=== PATIENT | female | born 1985 | race Two or more races ===

== ENCOUNTER 2020-04-24 10:55 | Outpatient (REF) | payer OTHER, SELFPAY ==
[2020-04-24 12:40] LABS: MANUAL DIFF FLAG NO
[2020-04-24 12:50] LABS: Basophils Percent Auto 0.3 % (0-2); Eosinophils Percent Auto 0.6 % (0-4); Hematocrit 37.3 % (37-47); Hemoglobin 11.9 g/dl (12.0-16.0); Imm Gran Abs Auto 0.01 X10*3/uL (0.00-0.03); Imm Gran Pct Auto 0.2 % (0.0-0.4); Lymphocytes Absolute Auto 2.1 X10*3/uL (1.2-4.9); Lymphocytes Percent Auto 31.7 % (20-40); Mean Corpuscular HGB Conc 31.9 g/dl (31.0-35.0); Mean Corpuscular Hemoglobin 25.5 pg (27.0-33.0); Mean Platelet Volume 10.4 fL (9.4-12.3); Monocytes Absolute Auto 0.5 X10*3/uL (0.1-1.2); Monocytes Percent Auto 7.1 % (2-11); Neutrophils Absolute Auto 3.9 X10*3/uL (2.0-8.3); Neutrophils Percent Auto 60.1 % (45-73); Platelet Count 302 X10*3/uL (160-400); Red Blood Count 4.66 X10*6/uL (4.20-5.50); Red Cell Distribution Width 14.2 % (11.0-16.0); White Blood Count 6.5 X10*3/uL (4.8-10.8)
[2020-04-24 13:03] LABS: Estimated Average Glucose 105 mg/dL; Hemoglobin A1c % 5.3 %
[2020-04-24 13:43] LABS: Alanine Aminotransferase 8 U/L (0-31); Albumin Level 3.6 g/dL (3.5-5.0); Alkaline Phosphatase 55 U/L (39-117); Anion Gap 13 (12-20); Aspartate Amino Transferase 12 U/L (5-31); Bilirubin Total 0.2 mg/dL (0.0-1.0); Blood Urea Nitrogen 10 mg/dL (9-16); Calcium 8.5 mg/dL (8.4-10.2); Carbon Dioxide 22 mmol/L (22-29); Chloride 106 mmol/L (96-108); Cholesterol 103 mg/dL; Estimated Glomerular Filt Rate > 60; Glucose Fasting 80 mg/dL (60-99); HDL Cholesterol 71 mg/dL; LDL Cholesterol Calculated 25 mg/dl; Potassium 4.3 mmol/l (3.3-5.1); Sodium 137 mmol/L (135-145); Total Protein 6.6 g/dL (6.5-8.0); Triglycerides 37 mg/dL
[2020-04-24 13:46] LABS: Thyroid Stimulating Hormone 1.19 uIU/mL (0.32-4.0)
== END 2020-04-24 10:56 | disposition home or self-care (01) ==
LOC: HO.LAB 10:55
PROVIDERS: PCP Physician Assistant; Visit Provider Physician Assistant
DX: E66.09 Other obesity due to excess calories (principal); Z00.00 Encounter for general adult medical examination without abnormal findings; Z13.1 Encounter for screening for diabetes mellitus; Z13.220 Encounter for screening for lipoid disorders
CPT/HCPCS: 36415; 80053; 80061; 83036; 84443; 85025

== ENCOUNTER 2020-08-03 02:01 | Emergency (ER) | payer OTHER, SELFPAY ==
--- NOTE | ~2020-08-03 | CT_ITS ---
EXAMINATION: CT ABDOMEN AND PELVIS WITH CONTRAST CLINICAL INFORMATION: Left lower quadrant pain. Flank pain. COMPARISON: None TECHNIQUE: Multidetector volumetric images were obtained from the superior aspect of the liver through the pubic symphysis following administration 85 mL of Omnipaque 350 intravenous contrast. Sagittal and coronal reformatted images were obtained on the technologist's workstation. Oral contrast: No This CT examination was performed using dose optimization techniques as appropriate, variously including the following: *Automated exposure control *Adjustment of mA and/or kV according to patient size (this includes techniques or standardized protocols for targeted exams where dose is matched to indication/reason for exam; i.e. extremities or head) *Use of iterative reconstruction technique DLP: 522 mGy-cm FINDINGS: LUNG BASES: The visualized lung bases are unremarkable. LIVER, GALLBLADDER, AND BILIARY TREE: The liver is normal in size, shape, and attenuation. No focal hepatic lesion or biliary ductal dilatation is present. The gallbladder is unremarkable with no evidence of radiopaque gallstones, gallbladder wall thickening, or obvious pericholecystic inflammatory changes. PANCREAS: Unremarkable. SPLEEN: Unremarkable. ADRENAL GLANDS: Unremarkable. KIDNEYS AND URETERS: The kidneys are normal in size, shape, and attenuation. There is mild left hydronephrosis. There is a 0.4 cm calculus at the ureteropelvic junction, 12 cm from the posterior axillary line. This measures 520 Hounsfield units. There are additional nonobstructing calculi seen. At the upper pole of the left kidney there is a 0.4 cm calculus which is 11 cm from the posterior axillary line. Questionable right-sided calculi versus early excretion of contrast. BLADDER: Unremarkable. GASTROINTESTINAL TRACT: The stomach is unremarkable. Normal caliber small bowel. There is no obstruction. No colonic wall thickening or acute inflammatory change. Normal appendix. No free air or free fluid. ABDOMINAL WALL: No significant hernia is appreciated. LYMPH NODES: Normal. VASCULAR: Unremarkable. PELVIC VISCERA: The uterus and adnexa are unremarkable. OSSEOUS STRUCTURES: No acute or suspicious osseous abnormality. Fixation hardware in the right femur noted. CT/CT abdomen pelvis w con IMPRESSION: Mild left hydronephrosis with a 0.4 cm calculus at the left ureteropelvic junction.
[2020-08-03 02:39] VITALS: BP 156/96; PULSE 88; RESP 20; TEMP 36.9; O2SAT 100; BMI 40.2
--- NOTE | 2020-08-03 03:03 | ED_ITS ---
HPI - Abdominal Pain General Chief Complaint: Abdominal Pain Stated Complaint: LOWER ABD PAIN/BACK PAIN Time Seen by Provider: 08/03/20 03:03 Source: patient Mode of arrival: ambulatory History of Present Illness HPI narrative: This is a 35-year-old female without significant past medical history who presents with left flank/left lower quadrant pain with radiation into the anterior abdomen this started approximately 11:30 p.m. and is ass ociated with nausea, vomiting, chills but no fevers and no urinary pain/burning/frequency. LMP is completed this past Tuesday. Related Data Previous Rx's Medication Instructions Recorded drospirenone 3 mg-ethinyl 1 tab PO DAILY #84 tab 03/31/20 estradiol 0.03 mg tablet metoclopramide HCl 5 mg tablet 5 mg PO BID #30 tab 03/31/20 omeprazole 20 mg capsule,delayed 20 mg PO DAILY #90 cap 03/31/20 release ketorolac 10 mg PO Q6H PRN 5 Days #20 tab 08/03/20 ondansetron HCl [Zofran] 4 mg PO Q8H PRN 3 Days #6 tab 08/03/20 tamsulosin [Flomax] 0.4 mg PO BEDTIME 4 Days #4 cap 08/03/20 Allergies Allergy/AdvReac Type Severity Reaction Status Date / Time No Known Allergies Allergy Unverified 08/03/20 02:46 Review of Systems Review of Systems Pertinent positives and negatives as stated in HPI 10 point review systems is otherwise negative. Physical Exam Vital Signs: Vital Signs: Last Vital Signs Temp 98.4 F 08/03/20 02:39 Pulse 83 08/03/20 05:42 Resp 16 08/03/20 05:42 BP 157/93 H 08/03/20 05:42 Pulse Ox 100 08/03/20 02:39 Body Mass Index 40.2 VITAL SIGNS: Reviewed. GENERAL: Well developed, well nourished, in no acute distress. HEAD: Normocephalic/atraumatic, OROPHARYNX: no oral lesions noted, posterior pharynx clear NECK: Supple, no adenopathy LUNGS: Normal breath sounds. No adventitious sounds or accessory muscle use. SpO2<100> CARDIOVASCULAR: Regular rate and rhythm without noted murmurs, no JVD or lower extremity edema. ABDOMEN: Soft, tenderness in left lower quadrant without rebound, non-distended with bowel sounds. NEUROLOGIC: Alert and oriented x 4. Strength and sensation to light touch were grossly intact x 4. Course Course Course Narrative: This is a 35-year-old female with history and clinical presentation suggestive of renal colic, pyelonephritis, less likely diverticulitis or ovarian etiology. IV fluids, antiemetics, pain medication, labs, UA, CT scan abdomen/pelvis Review of all investigations is consistent with renal colic and noted 4 mm stone with mild hydro on the left side. On re-evaluation patient has had good resolution of pain with a follow-up pain scale of 2/10 and tolerating oral intak e. Patient discharged home in stable condition MDM - Abdominal Pain Lab Data Result diagrams: 08/03/20 03:01 08/03/20 03:01 Labs: Lab Results 08/03/20 08/03/20 08/03/20 Range/Units 03:01 03:01 03:01 WBC 11.5 H (4.8-10.8) X10*3/uL RBC 5.21 (4.20-5.50) X10*6/uL Hgb 13.1 (12.0-16.0) g/dl Hct 41.3 (37-47) % MCV 79.3 L (80-98) fL MCH 25.1 L (27.0-33.0) pg MCHC 31.7 (31.0-35.0) g/dl RDW 13.7 (11.0-16.0) % Plt Count 345 (160-400) X10*3/uL MPV 10.0 (9.4-12.3) fL Immature Gran % (Auto) 0.3 (0.0-0.4) % Neut % (Auto) 81.2 H (45-73) % Lymph % (Auto) 13.4 L (20-40) % [place] % (Auto) 4.7 (2-11) % Eos % (Auto) 0.1 (0-4) % Baso % (Auto) 0.3 (0-2) % Lymph # (Auto) 1.5 (1.2-4.9) X10*3/uL [place] # (Auto) 0.5 (0.1-1.2) X10*3/uL Eos # (Auto) 0.0 (0.0-0.4) X10*3/uL Baso # (Auto) 0.0 (0.0-0.2) X10*3/uL Abs Immat Gran (auto) 0.04 H (0.00-0.03) X10*3/uL Absolute Neuts (auto) 9.3 H (2.0-8.3) X10*3/uL Absolute Nucleated RBC 0.000 (0.0-0.012) X10*3/uL Nucleated RBC % (auto) 0.0 (0.0-0.2) /100WBC Hold Blue Top SEE NOTE Sodium 139 (135-145) mmol/L Potassium 3.3 (3.3-5.1) mmol/L Chloride 108 (96-108) mmol/L Carbon Dioxide 18 L (22-29) mmol/L Anion Gap 16 (12-20) BUN 10 (9-16) mg/dL Creatinine 0.78 (0.5-1.4) mg/dL Estim Creat Clear Calc 55.6 Estimated GFR > 60 Random Glucose 105 (60-115) mg/dL Calcium 8.9 (8.4-10.2) mg/dL Total Bilirubin 0.4 (0.0-1.0) mg/dL AST 13 (5-31) U/L ALT 7 (0-31) U/L Alkaline Phosphatase 65 (39-117) U/L Total Protein 7.2 (6.5-8.0) g/dL Albumin 4.0 (3.5-5.0) g/dL Urine Color Urine Appearance Urine pH (5.0-8.0) Ur Specific [place] (1.005-1.025) Urine Protein (NEG-TRACE) MG/DL Urine Glucose (UA) (NEG) MG/DL Urine Ketones (NEG) MG/DL Urine Blood (NEG) Urine Nitrite (NEG) Ur Leukocyte Esterase (NEG) Urine RBC (0) /HPF Urine WBC (0-4) /HPF Ur Squamous Epith Cells /LPF Urine Bacteria /LPF Urine Mucus /LPF Urine Test (NEGATIVE) 08/03/20 08/03/20 Range/Units 03:01 03:01 WBC (4.8-10.8) X10*3/uL RBC (4.20-5.50) X10*6/uL Hgb (12.0-16.0) g/dl Hct (37-47) % MCV (80-98) fL MCH (27.0-33.0) pg MCHC (31.0-35.0) g/dl RDW (11.0-16.0) % Plt Count (160-400) X10*3/uL MPV (9.4-12.3) fL Immature Gran % (Auto) (0.0-0.4) % Neut % (Auto) (45-73) % Lymph % (Auto) (20-40) % [place] % (Auto) (2-11) % Eos % (Auto) (0-4) % Baso % (Auto) (0-2) % Lymph # (Auto) (1.2-4.9) X10*3/uL [place] # (Auto) (0.1-1.2) X10*3/uL Eos # (Auto) (0.0-0.4) X10*3/uL Baso # (Auto) (0.0-0.2) X10*3/uL Abs Immat Gran (auto) (0.00-0.03) X10*3/uL Absolute Neuts (auto) (2.0-8.3) X10*3/uL Absolute Nucleated RBC (0.0-0.012) X10*3/uL Nucleated RBC % (auto) (0.0-0.2) /100WBC Hold Blue Top Sodium (135-145) mmol/L Potassium (3.3-5.1) mmol/L Chloride (96-108) mmol/L Carbon Dioxide (22-29) mmol/L Anion Gap (12-20) BUN (9-16) mg/dL Creatinine (0.5-1.4) mg/dL Estim Creat Clear Calc Estimated GFR Random Glucose (60-115) mg/dL Calcium (8.4-10.2) mg/dL Total Bilirubin (0.0-1.0) mg/dL AST (5-31) U/L ALT (0-31) U/L Alkaline Phosphatase (39-117) U/L Total Protein (6.5-8.0) g/dL Albumin (3.5-5.0) g/dL Urine Color DARK YELLOW Urine Appearance HAZY Urine pH 6.0 (5.0-8.0) Ur Specific [place] >= 1.030 H (1.005-1.025) Urine Protein TRACE (NEG-TRACE) MG/DL Urine Glucose (UA) NEG (NEG) MG/DL Urine Ketones NEG (NEG) MG/DL Urine Blood 3+ H (NEG) Urine Nitrite NEG (NEG) Ur Leukocyte Esterase NEG (NEG) Urine RBC 50-75 H (0) /HPF Urine WBC 0-2 (0-4) /HPF Ur Squamous Epith Cells 1+ /LPF Urine Bacteria TRACE /LPF Urine Mucus 3+ /LPF Urine Test NEGATIVE (NEGATIVE) Discharge Plan Discharge Clinical Impression: Ureterolithiasis Patient Disposition: Home, Self-Care Instructions: Ureteral Stones (ED) Additional Instructions: 1. Tylenol 1000 mg, orally, every 6 hours as needed for pain control. Do not exceed 4000 mg within 24 hours. 2. Increase fluid hydration especially with water. 3. Please try to avoid carbonated/caffeinated beverages as this will increase likelihood of kidney stones. 4. Please follow-up with Urology by calling their office on Tuesday morning for further evaluation. Do not hesitate to return to the emergency department should you experience any acute worsening of your symptoms. Prescriptions: New ondansetron HCl [Zofran] 4 mg tablet 4 mg PO Q8H PRN (Reason: nausea and vomiting) 3 Days Qty: 6 RF: 0 tamsulosin [Flomax] 0.4 mg capsule 0.4 mg PO BEDTIME 4 Days Qty: 4 RF: 0 ketorolac 10 mg tablet 10 mg PO Q6H PRN (Reason: pain) 5 Days Qty: 20 RF: 0 No Action drospirenone-ethinyl estradiol 3-0.03 mg tablet 1 tab PO DAILY Qty: 84 RF: 1 omeprazole 20 mg capsule,delayed release(DR/EC) 20 mg PO DAILY Qty: 90 RF: 1 metoclopramide HCl 5 mg tablet 5 mg PO BID Qty: 30 RF: 2 Referrals: Zhao Sanabria MD [Physician] - 2 days (Evaluation and treatment as indicated for left 4 mm stone with mild left hydronephrosis) Lisandro James PA-C [Primary Care Provider] - 2 days (Re-evaluation and outpatient management renal colic.) [facility] Past Medical History Source: nursing notes reviewed Medical History No known health problems Social History Social History Advance Directives: No Advance Directives Information Provided: No
--- NOTE | 2020-08-03 03:05 | PC.NURSE ---
2 IV attempts unsuccessful due to poor venous access. Labs and urine obtained and sent. Pt resting in bed, call orozco within reach, awaiting primary MD eval. Continue to monitor.
[2020-08-03 03:09] LABS: MANUAL DIFF FLAG NO
[2020-08-03 03:12] LABS: Glucose Urine UA NEG (NEG); Leukocyte Esterase Urine NEG (NEG); Nitrite Urine NEG (NEG); Specific Gravity - Urine >= 1.030 (1.005-1.025); Urine Blood 3+ (NEG); Urine Ketones NEG (NEG); Urine Protein TRACE MG/DL (NEG-TRACE)
[2020-08-03 03:14] LABS: Appearance Urine HAZY; Color Urine DARK YELLOW
[2020-08-03 03:15] LABS: Basophils Percent Auto 0.3 % (0-2); Eosinophils Percent Auto 0.1 % (0-4); Hematocrit 41.3 % (37-47); Hemoglobin 13.1 g/dl (12.0-16.0); Imm Gran Abs Auto 0.04 X10*3/uL (0.00-0.03); Imm Gran Pct Auto 0.3 % (0.0-0.4); Lymphocytes Absolute Auto 1.5 X10*3/uL (1.2-4.9); Lymphocytes Percent Auto 13.4 % (20-40); Mean Corpuscular HGB Conc 31.7 g/dl (31.0-35.0); Mean Corpuscular Hemoglobin 25.1 pg (27.0-33.0); Mean Corpuscular Volume 79.3 fL (80-98); Monocytes Absolute Auto 0.5 X10*3/uL (0.1-1.2); Monocytes Percent Auto 4.7 % (2-11); Neutrophils Absolute Auto 9.3 X10*3/uL (2.0-8.3); Neutrophils Percent Auto 81.2 % (45-73); Platelet Count 345 X10*3/uL (160-400); Red Blood Count 5.21 X10*6/uL (4.20-5.50); Red Cell Distribution Width 13.7 % (11.0-16.0); White Blood Count 11.5 X10*3/uL (4.8-10.8)
[2020-08-03 03:26] LABS: WBC Urine 0-2 /HPF (0-4)
[2020-08-03 03:27] LABS: Bacteria Urine TRACE /LPF; Mucus Urine 3+ /LPF; RBC Urine 50-75 /HPF (0); Squamous Epithelial Cell Urine 1+ /LPF; UPreg QC Valid YES; Urine Pregnancy NEGATIVE (NEGATIVE)
[2020-08-03 03:32] LABS: Alanine Aminotransferase 7 U/L (0-31); Alkaline Phosphatase 65 U/L (39-117); Anion Gap 16 (12-20); Aspartate Amino Transferase 13 U/L (5-31); Bilirubin Total 0.4 mg/dL (0.0-1.0); Blood Urea Nitrogen 10 mg/dL (9-16); Calcium 8.9 mg/dL (8.4-10.2); Carbon Dioxide 18 mmol/L (22-29); Chloride 108 mmol/L (96-108); Creatinine Clr Calc Pharmacy 55.6; Estimated Glomerular Filt Rate > 60; Glucose Random 105 mg/dL (60-115); Potassium 3.3 mmol/L (3.3-5.1); Sodium 139 mmol/L (135-145); Total Protein 7.2 g/dL (6.5-8.0)
[2020-08-03] MEDS: ondansetron HCL 4 MG/2 ML VIAL IVPUSH (03:46)
[2020-08-03] MEDS: 0.9 % Sodium Chloride 1,000 ML 999 ML IV (03:46)
[2020-08-03] MEDS: Ketorolac Tromethamine 15 MG/ML VIAL IVPUSH (03:46)
--- NOTE | 2020-08-03 04:04 | PC.NURSE ---
IV established by DANYA Phillips after many attempts to establish access. Pt medicated per AUG, off to CT on hospital bed.
[2020-08-03] MEDS: iohexoL 350 MG/ML 100 ML INFUS..BTL 85 ML IV (04:12)
--- NOTE | 2020-08-03 04:12 | PC.NURSE ---
Pt returns from CT. Pt reports no relief of pain after Toradol. MD aware. Per MD, plan for IV Fentanyl.
[2020-08-03] MEDS: fentaNYL citrate/PF 100 MCG/2 ML VIAL 25 MCG IVPUSH (04:23)
[2020-08-03 04:28] VITALS: BP 144/86; PULSE 87; RESP 16
--- NOTE | 2020-08-03 04:29 | PC.NURSE ---
Pt medicated with Fentanyl per AUG for 01/13 [address] A[address] results. Continue to monitor.
[2020-08-03 05:42] VITALS: BP 157/93; PULSE 83; RESP 16
== END 2020-08-03 06:50 | disposition home or self-care (01) ==
PROVIDERS: Emergency Provider Student in an Organized Health Care Education/Training Program; PCP Physician Assistant
DX: N20.1 Calculus of ureter (principal); R10.9 Unspecified abdominal pain; M54.5 Low back pain; Z79.899 Other long term (current) drug therapy
CPT/HCPCS: 36415; 74177; 80053; 81001; 81025; 85025; 96361; 96365; 96375; 99284; J1885; J2405; J3010; Q9967

== ENCOUNTER → 2020-08-12 09:04 | Outpatient (BNVA) | payer OTHER, SELFPAY | PROVIDERS: PCP Physician Assistant; Visit Provider Urology | DX: Z13.89 Encounter for screening for other disorder (principal) | CPT/HCPCS: Q3014 ==

== ENCOUNTER 2020-08-16 20:36 | Emergency (ER) | payer OTHER, SELFPAY ==
[2020-08-16 20:37] VITALS: BP 170/98; PULSE 82; RESP 16; TEMP 37; O2SAT 100; BMI 40.6
[2020-08-16 21:26] LABS: Appearance Urine CLEAR; Color Urine YELLOW; Glucose Urine UA NEG (NEG); Leukocyte Esterase Urine NEG (NEG); Nitrite Urine NEG (NEG); Specific Gravity - Urine >= 1.030 (1.005-1.025); Urine Blood NEG (NEG); Urine Ketones >=80 MG/DL (NEG); Urine Protein NEG (NEG-TRACE)
[2020-08-16 21:30] LABS: UPreg QC Valid YES; Urine Pregnancy NEGATIVE (NEGATIVE)
--- NOTE | 2020-08-16 22:03 | ED.ABDPAIN ---
HPI - Abdominal Pain General Chief Complaint: Back Pain/Injury Stated Complaint: Flank pain Time Seen by Provider: 08/16/20 21:50 Source: patient Mode of arrival: ambulatory History of Present Illness HPI narrative: This is a 35-year-old female who is returning with recurrent onset of left flank pain and has known ureterolithiasis and was evaluated on 08/03. Patient states that pain became unbearable at approximately 9:30 a.m. this morning with associated nausea and multiple episodes of vomiting but denies any fevers or chills or urinary problems. She is scheduled for intervention on 08/20. Related Data Previous Rx's Medication Instructions Recorded drospirenone 3 mg-ethinyl 1 tab PO DAILY #84 tab 03/31/20 estradiol 0.03 mg tablet metoclopramide HCl 5 mg tablet 5 mg PO BID #30 tab 03/31/20 omeprazole 20 mg capsule,delayed 20 mg PO DAILY #90 cap 03/31/20 release ketorolac 10 mg PO Q6H PRN 5 Days #20 tab 08/03/20 ondansetron HCl [Zofran] 4 mg PO Q8H PRN 3 Days #6 tab 08/03/20 tamsulosin [Flomax] 0.4 mg PO BEDTIME 4 Days #4 cap 08/03/20 ondansetron HCl [Zofran] 4 mg PO Q6H PRN #6 tab 08/17/20 prednisone 20 mg PO DAILY 4 Days #4 tab 08/17/20 tamsulosin [Flomax] 0.4 mg PO BEDTIME 4 Days #4 cap 08/17/20 Allergies Allergy/AdvReac Type Severity Reaction Status Date / Time No Known Allergies Allergy Unverified 08/03/20 02:46 Review of Systems Review of Systems Pertinent positives and negatives as stated in HPI 10 point review of systems is otherwise negative. Physical Exam Vital Signs: Vital Signs: Last Vital Signs Temp 98.6 F 08/16/20 20:37 Pulse 75 08/17/20 00:27 Resp 16 08/17/20 00:27 BP 150/76 H 08/17/20 00:27 Pulse Ox 99 08/17/20 00:27 Body Mass Index 40.6 VITAL SIGNS: Reviewed. GENERAL: Well developed, well nourished, in no acute distress. NOSE: Nares patent bilateral OROPHARYNX: no oral lesions noted, posterior pharynx clear NECK: Supple, no adenopathy LUNGS: Normal breath sounds. No adventitious sounds or accessory muscle use. SpO2<100> CARDIOVASCULAR: Regular rate and rhythm without noted murmurs, no JVD or lower extremity edema. ABDOMEN: Soft, non-tender, non-distended with bowel sounds, no CVA tenderness NEUROLOGIC: Alert and oriented x 4. Course Course Course Narrative: This is a 35-year-old female with history and clinical presentation consistent with continued left renal colic secondary to known ureterolithiasis as well as corresponding dehydration and will assess for systemic infection. On re-evaluation and review of all investigations patient says pain level is down to 0/10 and and tolerating oral intake. Will ensure the patient has adequate outpatient pain and nausea and coverage and encouraged to continue follow-up with urology as scheduled. MDM - Abdominal Pain Lab Data Result diagrams: 08/16/20 22:25 08/17/20 00:05 Labs: Lab Results 08/16/20 08/16/20 08/16/20 Range/Units 20:51 20:51 22:25 WBC 9.8 (4.8-10.8) X10*3/uL RBC 4.89 (4.20-5.50) X10*6/uL Hgb 12.6 (12.0-16.0) g/dl Hct 38.3 (37-47) % MCV 78.3 L (80-98) fL MCH 25.8 L (27.0-33.0) pg MCHC 32.9 (31.0-35.0) g/dl RDW 14.4 (11.0-16.0) % Plt Count 338 (160-400) X10*3/uL MPV 9.7 (9.4-12.3) fL Immature Gran % (Auto) 0.3 (0.0-0.4) % Neut % (Auto) 81.3 H (45-73) % Lymph % (Auto) 12.2 L (20-40) % [place] % (Auto) 6.0 (2-11) % Eos % (Auto) 0.0 (0-4) % Baso % (Auto) 0.2 (0-2) % Lymph # (Auto) 1.2 (1.2-4.9) X10*3/uL [place] # (Auto) 0.6 (0.1-1.2) X10*3/uL Eos # (Auto) 0.0 (0.0-0.4) X10*3/uL Baso # (Auto) 0.0 (0.0-0.2) X10*3/uL Abs Immat Gran (auto) 0.03 (0.00-0.03) X10*3/uL Absolute Neuts (auto) 8.0 (2.0-8.3) X10*3/uL Absolute Nucleated RBC 0.000 (0.0-0.012) X10*3/uL Nucleated RBC % (auto) 0.0 (0.0-0.2) /100WBC Sodium (135-145) mmol/L Potassium (3.3-5.1) mmol/L Chloride (96-108) mmol/L Carbon Dioxide (22-29) mmol/L Anion Gap (12-20) BUN (9-16) mg/dL Creatinine (0.5-1.4) mg/dL Estim Creat Clear Calc Estimated GFR Random Glucose (60-115) mg/dL Calcium (8.4-10.2) mg/dL Total Bilirubin (0.0-1.0) mg/dL AST (5-31) U/L ALT (0-31) U/L Alkaline Phosphatase (39-117) U/L Total Protein (6.5-8.0) g/dL Albumin (3.5-5.0) g/dL Urine Color YELLOW Urine Appearance CLEAR Urine pH 6.0 (5.0-8.0) Ur Specific [place] >= 1.030 H (1.005-1.025) Urine Protein NEG (NEG-TRACE) MG/DL Urine Glucose (UA) NEG (NEG) MG/DL Urine Ketones >=80 (NEG) MG/DL Urine Blood NEG (NEG) Urine Nitrite NEG (NEG) Ur Leukocyte Esterase NEG (NEG) Urine Test NEGATIVE (NEGATIVE) 08/17/20 Range/Units 00:05 WBC (4.8-10.8) X10*3/uL RBC (4.20-5.50) X10*6/uL Hgb (12.0-16.0) g/dl Hct (37-47) % MCV (80-98) fL MCH (27.0-33.0) pg MCHC (31.0-35.0) g/dl RDW (11.0-16.0) % Plt Count (160-400) X10*3/uL MPV (9.4-12.3) fL Immature Gran % (Auto) (0.0-0.4) % Neut % (Auto) (45-73) % Lymph % (Auto) (20-40) % [place] % (Auto) (2-11) % Eos % (Auto) (0-4) % Baso % (Auto) (0-2) % Lymph # (Auto) (1.2-4.9) X10*3/uL [place] # (Auto) (0.1-1.2) X10*3/uL Eos # (Auto) (0.0-0.4) X10*3/uL Baso # (Auto) (0.0-0.2) X10*3/uL Abs Immat Gran (auto) (0.00-0.03) X10*3/uL Absolute Neuts (auto) (2.0-8.3) X10*3/uL Absolute Nucleated RBC (0.0-0.012) X10*3/uL Nucleated RBC % (auto) (0.0-0.2) /100WBC Sodium 140 (135-145) mmol/L Potassium 4.0 D (3.3-5.1) mmol/L Chloride 108 (96-108) mmol/L Carbon Dioxide 15 L (22-29) mmol/L Anion Gap 21 H (12-20) BUN 10 (9-16) mg/dL Creatinine 0.89 (0.5-1.4) mg/dL Estim Creat Clear Calc 49.0 Estimated GFR > 60 Random Glucose 78 (60-115) mg/dL Calcium 8.7 (8.4-10.2) mg/dL Total Bilirubin 0.2 (0.0-1.0) mg/dL AST 16 (5-31) U/L ALT 8 (0-31) U/L Alkaline Phosphatase 69 (39-117) U/L Total Protein 7.7 (6.5-8.0) g/dL Albumin 4.2 (3.5-5.0) g/dL Urine Color Urine Appearance Urine pH (5.0-8.0) Ur Specific [place] (1.005-1.025) Urine Protein (NEG-TRACE) MG/DL Urine Glucose (UA) (NEG) MG/DL Urine Ketones (NEG) MG/DL Urine Blood (NEG) Urine Nitrite (NEG) Ur Leukocyte Esterase (NEG) Urine Test (NEGATIVE) Discharge Plan Discharge Clinical Impression: Renal colic Patient Disposition: Home, Self-Care Instructions: Renal Colic (ED) Additional Instructions: 1. Tylenol 1000 mg, orally, every 6 hours as needed for pain control. Do not exceed 4000 mg within 24 hours. 2. Ibuprofen 400 mg, orally with milk or food, every 6 hours as needed for pain control. Take this medication with the Tylenol for improved pain control. 3. Continue to follow up with Urology for treatment as scheduled. Do not hesitate to return the emergency department should you develop any acute worsening of your symptoms. Prescriptions: New tamsulosin [Flomax] 0.4 mg capsule 0.4 mg PO BEDTIME 4 Days Qty: 4 RF: 0 prednisone 20 mg tablet 20 mg PO DAILY 4 Days Qty: 4 RF: 0 ondansetron HCl [Zofran] 4 mg tablet 4 mg PO Q6H PRN (Reason: nausea and vomiting) Qty: 6 RF: 0 No Action drospirenone-ethinyl estradiol 3-0.03 mg tablet 1 tab PO DAILY Qty: 84 RF: 1 omeprazole 20 mg capsule,delayed release(DR/EC) 20 mg PO DAILY Qty: 90 RF: 1 metoclopramide HCl 5 mg tablet 5 mg PO BID Qty: 30 RF: 2 ondansetron HCl [Zofran] 4 mg tablet 4 mg PO Q8H PRN (Reason: nausea and vomiting) 3 Days Qty: 6 RF: 0 tamsulosin [Flomax] 0.4 mg capsule 0.4 mg PO BEDTIME 4 Days Qty: 4 RF: 0 ketorolac 10 mg tablet 10 mg PO Q6H PRN (Reason: pain) 5 Days Qty: 20 RF: 0 Referrals: Zhao Sanabria MD [Physician] - 2 days Lisandro James PA-C [Primary Care Provider] - 2 days (Re-evaluation) Print Language: Monegasque [facility] Past Medical History Source: nursing notes reviewed Medical History Kidney calculi Surgical History History of surgery Social History Social History Alcohol intake: never Smoking Status: Never smoker Use of substances other than those prescribed or required for medical reasons: No Advance Directives: No
[2020-08-16 22:32] LABS: MANUAL DIFF FLAG NO
[2020-08-16 22:33] LABS: Basophils Percent Auto 0.2 % (0-2); Hematocrit 38.3 % (37-47); Hemoglobin 12.6 g/dl (12.0-16.0); Imm Gran Abs Auto 0.03 X10*3/uL (0.00-0.03); Imm Gran Pct Auto 0.3 % (0.0-0.4); Lymphocytes Absolute Auto 1.2 X10*3/uL (1.2-4.9); Lymphocytes Percent Auto 12.2 % (20-40); Mean Corpuscular HGB Conc 32.9 g/dl (31.0-35.0); Mean Corpuscular Hemoglobin 25.8 pg (27.0-33.0); Mean Corpuscular Volume 78.3 fL (80-98); Mean Platelet Volume 9.7 fL (9.4-12.3); Monocytes Absolute Auto 0.6 X10*3/uL (0.1-1.2); Neutrophils Percent Auto 81.3 % (45-73); Platelet Count 338 X10*3/uL (160-400); Red Blood Count 4.89 X10*6/uL (4.20-5.50); Red Cell Distribution Width 14.4 % (11.0-16.0); White Blood Count 9.8 X10*3/uL (4.8-10.8)
[2020-08-16] MEDS: Ketorolac Tromethamine 15 MG/ML VIAL IVPUSH (22:42)
[2020-08-16] MEDS: 0.9 % Sodium Chloride 1,000 ML 999 ML IV (22:42)
--- NOTE | 2020-08-16 22:46 | PC.NURSE ---
iv inserted, labs drawn, pt medicated per order
--- NOTE | 2020-08-16 23:45 | PC.NURSE ---
ATTEMPTED TO OBTAIN RECOLLECT WITH NO SUCCESS. WILL CALL PHLEBOTOMY TO RECOLLECT LAB AT THIS TIME.
[2020-08-17 00:27] VITALS: BP 150/76; PULSE 75; RESP 16; O2SAT 99
--- NOTE | 2020-08-17 00:28 | PC.NURSE ---
PAIN RESOLVED AT THIS TIME. PO CHALLENGE STARTED.
[2020-08-17 00:32] LABS: Alkaline Phosphatase 69 U/L (39-117); Aspartate Amino Transferase 16 U/L (5-31); Blood Urea Nitrogen 10 mg/dL (9-16); Chloride 108 mmol/L (96-108); Total Protein 7.7 g/dL (6.5-8.0)
[2020-08-17 03:12] LABS: Alanine Aminotransferase 8 U/L (0-31); Albumin Level 4.2 g/dL (3.5-5.0); Anion Gap 21 (12-20); Bilirubin Total 0.2 mg/dL (0.0-1.0); Calcium 8.7 mg/dL (8.4-10.2); Carbon Dioxide 15 mmol/L (22-29); Estimated Glomerular Filt Rate > 60; Glucose Random 78 mg/dL (60-115); Sodium 140 mmol/L (135-145)
== END 2020-08-17 03:47 | disposition home or self-care (01) ==
PROVIDERS: Emergency Provider Student in an Organized Health Care Education/Training Program; PCP Physician Assistant
DX: N20.0 Calculus of kidney (principal); R11.2 Nausea with vomiting, unspecified
CPT/HCPCS: 36415; 80053; 81003; 81025; 85025; 96361; 96374; 99284; J1885

== ENCOUNTER 2020-08-20 06:12 | Day surgery (SDC) | payer OTHER, SELFPAY ==
--- NOTE | 2020-08-19 09:31 | HO.ANESPROP2 ---
Documented by User: Elda Toussaint 08/19/20 09:33 HPI - Anesthesia Eval Consult details Narrative: 35yo F for L ESWL No prev ESWL on record PMFSH Active Problems Active Problems: All Active Problems (Updated 08/18/20 @ 00:00 by Parminder Power) Nephrolithiasis (Acute) Past Medical History Medical History Kidney calculi Surgical History Surgical History History of surgery Social History Social History Alcohol intake: never Smoking Status: Never smoker Use of substances other than those prescribed or required for medical reasons: No Advance Directives: No Advance Directives Information Provided: Yes Meds Allergies Allergy/AdvReac Type Severity Reaction Status Date / Time No Known Allergies Allergy Unverified 08/03/20 02:46 Exam Exam Date and Time: August 19, 2020930 Pertinent Lab Results Pertinent Lab Results: Laboratory Tests 08/16/20 08/17/20 22:25 00:05 WBC 9.8 Hgb 12.6 Hct 38.3 Plt Count 338 Sodium 140 Potassium 4.0 D Chloride 108 Carbon Dioxide 15 L BUN 10 Creatinine 0.89 Assessment and Plan Assessment Anesthesia Assessment: Chart Reviewed Documented by User: Breanne Francis 08/20/20 08:32 PMFSH Past Medical History Medical History Kidney calculi Surgical History Surgical History History of surgery Social History Social History Alcohol intake: never Smoking Status: Never smoker Use of substances other than those prescribed or required for medical reasons: No Advance Directives: No Advance Directives Information Provided: Yes Meds Allergies Allergy/AdvReac Type Severity Reaction Status Date / Time No Known Allergies Allergy Unverified 08/03/20 02:46 Exam Airway Mallampati Class: III TM Dist: >3cm Neck ROM: Full Heart: RRR Lungs: CTA
[2020-08-20] VITALS (16 sets, daily range): BP systolic 144–176; BP diastolic 81–107; PULSE 78–107; RESP 16–18; TEMP 36.8–37.1; O2SAT 95–100; BMI 40.6
--- NOTE | ~2020-08-20 | XR_ITS ---
EXAMINATION: XR ABDOMEN KUB CLINICAL INDICATION: Nephrolithiasis. COMPARISON: CT abdomen 08/03/2020 TECHNIQUE: AP view of the abdomen. FINDINGS: There is moderate stool in the colon overlying both kidneys. Small renal calculi seen in both kidneys on previous CT exam are not visualized on the present exam. There is no organomegaly. No bony abnormality. There is an intramedullary femoral caroline and subtrochanteric nail. Femoral fracture not in the [id number]. XR/XR KUB IMPRESSION: Moderate constipation. Radiopaque calculi seen in both kidneys on the previous CT are not visualized on this exam due to overlying stool in the colon.
[2020-08-20 06:49] LABS: UPreg QC Valid YES; Urine Pregnancy NEGATIVE (NEGATIVE)
[2020-08-20] MEDS: Lactated Ringers 1,000 ML 100 ML IVCONT (07:06)
--- NOTE | 2020-08-20 08:19 | MHC.SHP ---
Pre-Procedural Eval Section A The patient is an INPATIENT: No Changes since office visit: No Cold of Flu in the past 2 weeks, No New Medical Problems, No Changes in Medication and No Patient answered all questions The History & Physical has been completed within 30 days and I have reviewed it.: Yes Section B Chief Complaint: Calculus Of Kidney Allergies: Allergies Allergy/AdvReac Type Severity Reaction Status Date / Time No Known Allergies Allergy Unverified 08/03/20 02:46 Plan Diagnosis/Plan: Unchanged (left ESWL) I have reviewed the history and physical and performed a pertinent physical examination on my patient. No changes have occurred unless specified.
[2020-08-20] MEDS: ondansetron HCL 4 MG/2 ML VIAL IVPUSH ×2 (08:27→10:50)
[2020-08-20] MEDS: fentaNYL citrate/PF 100 MCG/2 ML VIAL 25 MCG IVPUSH ×5 (08:27→09:46)
--- NOTE | 2020-08-20 08:29 | PC.NURSE ---
medicated for 8/10 left flank pain.
--- NOTE | 2020-08-20 09:19 | W.PM.OPN ---
Operative Note Operative Note Date of Service: 08/20/20 Narrative: PreOperative Diagnosis: Left Renal stones Post Operative Diagnosis: Left proximal ureteric, renal stones Procedure: ESWL Surgeon: Dr Zhao Sanabria Anesthesia: mac/sedation Indications for procedure: They understand ESWL may be a staged procedure and subsequent intervention may be required based on imaging after ESWL. They also understand there is a risk of bleeding, infection, damage to adjacent organs. CT scan showed it at left UPJ 2 weeks ago. Procedure: After informed consent was verified the patient was brought to the operating room and placed in a supine position. Anesthesia was performed per protocol. Safety pause time-out was performed. Imaging was in the room and laterality confirmed. ESWL was performed. Initial imaging showed stone in upper portion of ureter. With start of procedure stone bounced back up into kidney under ultrasound. The 1st 500 shocks were performed at 60 hertz. These were performed with increasing power. Once maximum power was reached the rate was increased to 180 hertz. A total of 2500 shocks were given. Fluoroscopy showed stone disintegration. They tolerated procedure well and was transferred to the recovery area upon completion.
--- NOTE | 2020-08-20 09:20 | PM.OP ---
Brief Operative Note Date of Service: 08/20/20 Pre-op diagnosis: Left upper ureteric stone Post-op diagnosis: same Procedure: Left ESWL Surgeon: Zhao Sanabria MD Anesthesia: GLMA Estimated blood loss (mL): 0 Pathology: none sent Condition: stable Disposition: same day
[2020-08-20] MEDS: Phenazopyridine HCL 100 MG TABLET PO (09:29)
[2020-08-20] MEDS: Acetaminophen 325 MG TABLET 650 MG PO (09:29)
[2020-08-20] MEDS: oxyCODONE HCl Immed Release 5 MG TABLET PO ×2 (09:30→09:44)
--- NOTE | 2020-08-20 09:49 | HO.POSTANES ---
Post Anesthesia Evaluation Post Anesthesia Evaluation Vital Signs: Vital Signs Temp Pulse Resp BP Pulse Ox 08/20/20 09:28 95 18 173/101 H 98 08/20/20 09:23 98.3 F 97 16 160/94 H 95 08/20/20 08:11 89 18 173/105 H 100 08/20/20 07:01 98.7 F 98 16 161/105 H 98 Anesthesia: General Mental Status: Awake Pain Control: Satisfactory Nausea/Vomiting: None Hydration: Adequate Anesthesia-Related Issues: No Anes. Related Issues
[2020-08-20] MEDS: Ketorolac Tromethamine 30 MG/ML VIAL IVPUSH (11:31)
== END 2020-08-20 13:59 | disposition home or self-care (01) ==
PROVIDERS: Nurse Practitioner; PCP Physician Assistant; Visit Provider Urology
PROC: (CPT 50590; principal; 2020-08-20 08:00)
DX: N20.0 Calculus of kidney (principal); Z87.442 Personal history of urinary calculi
CPT/HCPCS: 50590; 74018; 81025; J1885; J2250; J2405; J3010

== ENCOUNTER 2020-08-28 09:57 | Outpatient (REF) | payer OTHER, SELFPAY ==
--- NOTE | ~2020-08-28 | US_ITS ---
EXAMINATION: US RETROPERITONEAL LIMITED (RENAL ONLY) CLINICAL INFORMATION: Calculus of kidney. COMPARISON: X-ray KUB 08/20/2020. CT abdomen and pelvis 08/03/2020. TECHNIQUE: Real-time imaging of the kidneys. FINDINGS: RIGHT KIDNEY: 9.5 x 3.7 x 4.2 cm (SAG x AP x TRV). The kidney is normal in size, contour, and echogenicity. Renal cortical thickness is normal. No calculi or focal parenchymal lesions. No hydronephrosis. LEFT KIDNEY: 9.5 x 4.0 x 4.9 cm (SAG x AP x TRV). The kidney is normal in size, contour, and echogenicity. Renal cortical thickness is normal. No focal parenchymal lesions or hydronephrosis. There are several echogenic stones. A upper pole stone measuring 0.6 cm. There are clusters of small stones in the lower pole measuring 0.4, 0.8 x 0.3 cm. No caliectasis seen. US/US renal BI IMPRESSION: Multiple small echogenic stones in the upper and lower pole left kidney.There is no caliectasis. The right kidney is unremarkable.
== END 2020-08-28 09:58 | disposition home or self-care (01) ==
LOC: HO.US 09:57
PROVIDERS: Visit Provider Urology
DX: N20.0 Calculus of kidney (principal)
CPT/HCPCS: 76775

== ENCOUNTER → 2020-09-17 13:49 | Outpatient (BNVA) | payer OTHER, SELFPAY | PROVIDERS: Visit Provider Urology | DX: N20.0 Calculus of kidney (principal) | CPT/HCPCS: Q3014 ==

== ENCOUNTER 2021-01-06 12:12 | Outpatient (REF) | payer OTHER, SELFPAY ==
--- NOTE | ~2021-01-06 | US_ITS ---
EXAMINATION: US RETROPERITONEAL LIMITED (RENAL ONLY) CLINICAL INFORMATION: Calculus of kidney. COMPARISON: Renal ultrasound 08/28/2020. X-ray abdomen KUB 08/20/2020. CT abdomen and pelvis 08/03/2020. TECHNIQUE: Real-time imaging of the kidneys. FINDINGS: RIGHT KIDNEY: 9.6 x 4.1 x 4.9 cm (SAG x AP x TRV). The kidney is normal in size, contour, and echogenicity. Renal cortical thickness is normal. No calculi or focal parenchymal lesions. No hydronephrosis. LEFT KIDNEY: 9.6 x 3.9 x 4.3 cm (SAG x AP x TRV). The kidney is normal in size, contour, and echogenicity. Renal cortical thickness is normal. There is a small 2 mm echogenic density in the mid to upper pole with twinkle artifact suggestive of a small stone. No focal parenchymal lesions or hydronephrosis. US/US renal BI IMPRESSION: Small left renal stone.
[2021-01-06 13:18] LABS: Estimated Average Glucose 103 mg/dL; Hemoglobin A1c % 5.2 %
[2021-01-06 13:20] LABS: Alanine Aminotransferase 9 U/L (0-31); Albumin Level 3.7 g/dL (3.5-5.0); Alkaline Phosphatase 62 U/L (39-117); Anion Gap 11 (12-20); Aspartate Amino Transferase 16 U/L (5-31); Bilirubin Total 0.3 mg/dL (0.0-1.0); Blood Urea Nitrogen 12 mg/dL (9-16); Calcium 9.1 mg/dL (8.4-10.2); Carbon Dioxide 24 mmol/L (22-29); Chloride 107 mmol/L (96-108); Estimated Glomerular Filt Rate > 60; Glucose Fasting 84 mg/dL (60-99); Potassium 4.2 mmol/L (3.3-5.1); Sodium 138 mmol/L (135-145)
[2021-01-06 13:42] LABS: TSH reflex Free T4 1.35 uIU/mL (0.32-4.0)
== END 2021-01-06 12:13 | disposition home or self-care (01) ==
LOC: HO.US 12:12
PROVIDERS: Absent Provider Physician Assistant; PCP Physician Assistant; Visit Provider Urology
DX: Z13.29 Encounter for screening for other suspected endocrine disorder (principal); N20.0 Calculus of kidney
CPT/HCPCS: 36415; 76775; 80053; 83036; 84443

== ENCOUNTER → 2021-03-17 14:53 | Outpatient (BNVA) | payer OTHER, SELFPAY | PROVIDERS: PCP Physician Assistant | DX: N20.0 Calculus of kidney (principal) | CPT/HCPCS: Q3014 ==

== ENCOUNTER 2021-08-11 16:33 | Outpatient (REF) | payer OTHER, SELFPAY ==
--- NOTE | ~2021-08-11 | US_ITS ---
EXAMINATION: US RETROPERITONEAL LIMITED (RENAL ONLY) CLINICAL INFORMATION: This is a 36-year-old female with calculus of the kidney.. COMPARISON: Comparison is made to a previous ultrasound dated 01/06/2021. TECHNIQUE: Bilateral renal ultrasound was performed. FINDINGS: RIGHT KIDNEY: 9.2 x 4.1 x 4.6 cm (SAG x AP x TRV). Previously, the kidney measured 9.6 x 4.1 x 4.9 cm. The kidney is normal in size, contour, and echogenicity. Renal cortical thickness is normal. No calculi or focal parenchymal lesions. No hydronephrosis. LEFT KIDNEY: 9.8 x 4.6 x 4.8 cm (SAG x AP x TRV). Previously, the kidney measured 9.6 x 3.9 x 4.3 cm. The kidney is normal in size, contour, and echogenicity. Renal cortical thickness is normal. No focal parenchymal lesions. No hydronephrosis. There is a 0.4 cm echogenic area with shadowing in the upper pole consistent with a nonobstructing renal calculus. The patient previously demonstrated a 0.2 cm upper pole renal calculus in this area. US/US renal BI IMPRESSION: 1. There is a 0.4 cm nonobstructing upper pole left renal calculus. 2. Normal right kidney..
== END 2021-08-11 16:34 | disposition home or self-care (01) ==
LOC: HO.US 16:33
PROVIDERS: Visit Provider Urology
DX: N20.0 Calculus of kidney (principal)
CPT/HCPCS: 76775

== ENCOUNTER → 2021-09-11 12:46 | Outpatient (BNVA) | payer OTHER, SELFPAY | PROVIDERS: PCP Physician Assistant | DX: N20.0 Calculus of kidney (principal) | CPT/HCPCS: 99212 ==

== ENCOUNTER 2022-02-10 16:17 | Outpatient (REF) | payer OTHER, SELFPAY ==
--- NOTE | ~2022-02-10 | US_ITS ---
EXAMINATION: US RETROPERITONEAL LIMITED (RENAL ONLY) CLINICAL INFORMATION: Calculus of kidney. COMPARISON: Ultrasound retroperitoneal limited (renal only) 08/11/2021 and 01/06/2021. X-Ray abdomen KUB 08/20/2020. CT abdomen and pelvis with contrast 08/03/2020. TECHNIQUE: Real-time imaging of the kidneys. FINDINGS: RIGHT KIDNEY: 9.5 x 3.9 x 4.9 cm (SAG x AP x TRV). The kidney is normal in size, contour, and echogenicity. Renal cortical thickness is normal. No calculi or focal parenchymal lesions. No hydronephrosis. LEFT KIDNEY: 8.8 x 4.0 x 4.6 cm (SAG x AP x TRV). The kidney is normal in size, contour, and echogenicity. Renal cortical thickness is normal. No focal parenchymal lesions or hydronephrosis. There is an upper/midpole echogenic stone measuring 0.4 x 0.3 x 0.4 cm. Previously it measured 0.4 cm. No caliectasis seen. US/US renal BI IMPRESSION: Small nonobstructive echogenic stone upper/midpole left kidney, stable. No hydronephrosis. Normal right kidney. Stable.
== END 2022-02-10 16:18 | disposition home or self-care (01) ==
LOC: HO.US 16:17
PROVIDERS: Visit Provider Urology
DX: N20.0 Calculus of kidney (principal)
CPT/HCPCS: 76775

== ENCOUNTER → 2022-03-25 13:06 | Outpatient (BNVA) | payer OTHER, SELFPAY | PROVIDERS: PCP Physician Assistant; Visit Provider Urology | DX: N20.0 Calculus of kidney (principal) | CPT/HCPCS: 99212 ==

== ENCOUNTER 2022-05-10 12:42 | Outpatient (REF) | payer OTHER, SELFPAY ==
[2022-05-10 14:10] LABS: Hematocrit 41.4 % (37.0-47.0); Hemoglobin 13.5 g/dl (12.0-16.0); Mean Corpuscular HGB Conc 32.6 g/dl (31.0-35.0); Mean Corpuscular Hemoglobin 24.7 pg (27.0-33.0); Mean Corpuscular Volume 75.8 fL (80.0-98.0); Mean Platelet Volume 10.3 fL (9.4-12.3); Platelet Count 388 X10*3/uL (160-400); Red Blood Count 5.46 X10*6/uL (4.20-5.50); Red Cell Distribution Width 14.4 % (11.0-16.0); White Blood Count 7.2 X10*3/uL (4.8-10.8)
[2022-05-10 14:39] LABS: Microalbum/Creatinine Ratio Ur 20.8 ug/mg cr
[2022-05-10 14:57] LABS: Alanine Aminotransferase 13 U/L (0-31); Alkaline Phosphatase 76 U/L (39-117); Anion Gap 14 (12-20); Aspartate Amino Transferase 19 U/L (5-31); Bilirubin Total 0.3 mg/dL (0.0-1.0); Blood Urea Nitrogen 16 mg/dL (9-16); Calcium 9.3 mg/dL (8.4-10.2); Carbon Dioxide 22 mmol/L (22-29); Chloride 106 mmol/L (96-108); Estimated Glomerular Filt Rate > 60; Glucose Fasting 86 mg/dL (60-99); Potassium 4.2 mmol/L (3.3-5.1); Sodium 138 mmol/L (135-145); Total Protein 7.5 g/dL (6.5-8.0)
== END 2022-05-10 12:43 | disposition home or self-care (01) ==
LOC: HO.LAB 12:42
PROVIDERS: PCP Physician Assistant; Visit Provider Physician Assistant
DX: I10 Essential (primary) hypertension (principal); Z13.1 Encounter for screening for diabetes mellitus; Z13.29 Encounter for screening for other suspected endocrine disorder
CPT/HCPCS: 36415; 80053; 82043; 84443; 85027

== ENCOUNTER 2022-11-09 08:45 | Outpatient (REF) | payer OTHER, SELFPAY ==
[2022-11-09 14:35] LABS: CT PCR NOT DETECTED (Not Detect.); NG PCR NOT DETECTED (Not Detect.)
[2022-11-10 12:36] LABS: BV Int Neg Control Negative (Negative); BV Int Pos Control Positive (Positive)
== END 2022-11-09 08:46 | disposition home or self-care (01) ==
LOC: HO.LAB 08:45
PROVIDERS: PCP Physician Assistant; Visit Provider Advanced Practice Midwife
DX: Z01.419 Encounter for gynecological examination (general) (routine) without abnormal findings (principal); N89.8 Other specified noninflammatory disorders of vagina; Z20.2 Contact with and (suspected) exposure to infections with a predominantly sexual mode of transmission; N63.12 Unspecified lump in the right breast, upper inner quadrant
CPT/HCPCS: 0353U; 87480; 87510; 87660

== ENCOUNTER 2022-11-09 10:22 | Outpatient (REF) | payer OTHER, SELFPAY ==
[2022-11-11 00:03] LABS: HPV mRNA E6/E7 rflx Not Detected (Not Detected)
== END 2022-11-09 10:23 | disposition home or self-care (01) ==
LOC: HO.LNP 10:22
PROVIDERS: Visit Provider Advanced Practice Midwife
DX: Z01.419 Encounter for gynecological examination (general) (routine) without abnormal findings (principal)
CPT/HCPCS: 87624; 88142

== ENCOUNTER 2022-11-11 13:42 | Outpatient (REF) | payer OTHER, SELFPAY ==
--- NOTE | ~2022-11-11 | MM_ITS ---
EXAMINATION: MM DIAGNOSTIC DIGITAL BREAST TOMOSYNTHESIS, BILATERAL US DIAGNOSTIC ULTRASOUND BREAST, RIGHT CLINICAL INFORMATION: 37-year-old with palpable area of concern mid 1:00 right breast for 1-2 months. No prior breast imaging. Family history breast cancer, paternal grandmother. TC score 18%. COMPARISON: None (current study represents initial baseline exam). TECHNIQUE: Digital breast tomosynthesis is performed in both the craniocaudal and mediolateral oblique views along with computer-aided detection (CAD). Synthesized 2D images are generated from the tomosynthesis. Ultrasound right breast is targeted to the area of clinical concern. Patient is able to point to the area of symptoms at time of imaging. Grayscale imaging and color Doppler are performed without and with harmonics. FINDINGS: There are scattered areas of fibroglandular density (ACR BI-RADS breast composition Category b). There are no significant masses, abnormal calcifications, or other abnormalities. There is incidental low left axillary tail node on MLO view. The bilateral axilla and skin contours are unremarkable. There is no mammographic correlate in the area of patient's clinical concern on the right. No skin thickening. No coarsening of the Daryl's ligaments. Ultrasound right breast shows no cystic or solid mass, architectural abnormality, or focal duct ectasia. Results and management options are discussed with the patient at time of visit. MM/MM tomosynthesis diagnostic BI IMPRESSION: -No mammographic evidence of malignancy. -Unremarkable targeted right breast ultrasound. ASSESSMENT: BI-RADS 1: Negative RECOMMENDATION: 1. Patient should be managed based on the clinical impression. If there is still clinically palpable concern, further evaluation may be considered with surgical consult. Decision to proceed with biopsy should be based on clinical grounds and degree of clinical concern. 2. Otherwise, routine annual screening mammography, beginning age 40, or earlier as clinical risk factors warrant. This patient's information was entered into a reminder system with a target due date for their next mammogram.
== END 2022-11-11 13:43 | disposition home or self-care (01) ==
LOC: HO.MAMMO 13:42
PROVIDERS: PCP Physician Assistant; Visit Provider Advanced Practice Midwife
DX: N63.12 Unspecified lump in the right breast, upper inner quadrant (principal)
CPT/HCPCS: 76642; 77062; 77066

== ENCOUNTER 2022-11-22 11:30 | Outpatient (REF) | payer OTHER, SELFPAY ==
--- NOTE | ~2022-11-22 | US_ITS ---
EXAMINATION: US PELVIS CLINICAL INFORMATION: Hypertrophy of uterus. COMPARISON: CT abdomen/pelvis 08/03/2020 TECHNIQUE: Ultrasound of the pelvis is performed using both transabdominal and transvaginal transducers along with Doppler. Transvaginal imaging is performed due to inadequate visualization transabdominally. FINDINGS: UTERUS: The uterus is anteverted and retroflexed measuring 6.8 x 3.3 x 4.0 cm. The double wall endometrial thickness is 0.3 mm. The uterus is smooth in contour and has normal myometrial echogenicity. There is a 1.4 x 0.7 x 1.1 cm fibroid in the mid uterine body along with a 1.4 x 1.1 x 1.2 cm cervical fibroid seen. ADNEXA: Both ovaries are visualized. There is normal color flow to the adnexa. There is no ovarian torsion. There is no pelvic ascites or fluid collection. Right ovary measures 2.2 x 1.0 x 1.6 cm for a volume 1.8 mL. Left ovary measures 1.8 x 1.2 x 1.5 cm for a volume 1.7 mL, US/US pelvic and transvaginal IMPRESSION: Small fibroids.
[2022-11-22 14:43] LABS: Syphilis Screen Nonreactive (Nonreactive)
[2022-11-24 04:46] LABS: HBc Num1 0.07 S/CO (0.00-0.79); HIV AB/AG Nonreactive (Nonreactive); HIV Num 1 0.07 S/CO (0.00-0.99); Hepatitis B Core Antibody Nonreactive (Nonreactive); ~HepC Num1 0.11 S/CO (0.00-0.79); ~Hepatitis C Antibody Nonreactive (Nonreactive)
== END 2022-11-22 11:31 | disposition home or self-care (01) ==
LOC: HO.US 11:30
PROVIDERS: PCP Physician Assistant; Visit Provider Advanced Practice Midwife
DX: Z11.4 Encounter for screening for human immunodeficiency virus [HIV] (principal); N85.2 Hypertrophy of uterus; Z20.2 Contact with and (suspected) exposure to infections with a predominantly sexual mode of transmission
CPT/HCPCS: 36415; 76830; 76856; 86704; 86780; 86803; 87389

== ENCOUNTER 2022-12-22 10:35 | Outpatient (AMB) | payer OTHER, SELFPAY ==
--- NOTE | 2022-12-22 10:38 | MHC.OFFVIS ---
Intake Vital Signs 12/22/22 10:42 Height 4 ft Weight 140 lb BMI 42.7 BP 130/80 Intake Visit Reasons: US follow up Intake Note: The patient agreed to use of a medical laboratory manager during this encounter. Scribed for SARAH Key by Susan Wilkinson, medical laboratory manager, on 12/22/2022 at 10:58 am EST. Carpet Mechanic Required: No Information Interpreted: non-clinical & clinical Hydrometallurgical Engineer: Hydrometallurgical Engineer Present (Aidyn) Allergies No Known Allergies Allergy (Verified 12/22/22 10:43) Is last menstrual period known: Yes Last menstrual period: 12/12/22 Post menopausal: No HPI HPI Comments History of Present Illness Details She is here to discuss US results regarding hypertrophy of uterus. Breast US for prior breast lump left breast at 01:00 on last exam. Complains of frequent urination. [facility] Medical History (Updated 12/22/22 @ 13:23 by Susan Wilkinson) Frequency of urination HSV-1 (herpes simplex virus 1) infection HTN (hypertension) Kidney calculi Leiomyoma Surgical History History of surgery Family History Mother No problems noted. Father No problems noted. Social History Housing: Apartment Alcohol intake: current Alcohol intake frequency: holidays/special occasions only Patient Tobacco Use Status: Never used Tobacco e-Cigarette/Vaping Use: Never Used Second Hand Smoke Exposure: No service: No Current occupational status: disabled Cognitive needs: No Hearing needs: No Vision needs: Yes Female Reproductive History Menstrual Date of last menstrual period: 12/12/22 Date of last pap smear: 11/09/22 History of abnormal pap smear: Yes (CIN1 2015 2014) Physical Exam Vital Signs: Last Vital Signs BP 130/80 12/22/22 10:42 BMI result Body Mass Index 42.7 Const General: cooperative, healthy appearing, comfortable, no acute distress, well developed, alert and awake Chest Chest palpation & inspection: normal inspection of the chest and normal palpation of entire chest wall Breast/axilla inspection: normal inspection of the breasts and normal inspection of the axillae Breast/axilla palpation: normal palpation of the breasts and normal palpation of the axillae Results AMB Urinalysis, Automated UA Leukoctes 0 Jeff/uL Last Edit by Alea Phillips Liz on 12/22/22 12:04 UA Nitrite Negative Last Edit by Alea Phillips A on 12/22/22 12:04 UA Urobilinogen 0 mg/dL Last Edit by Alea Phillips A on 12/22/22 12:04 UA Protein 0 mg/dL Last Edit by Alea Phillips A on 12/22/22 12:04 UA pH 6 Last Edit by Alea Phillips [facility] on 12/22/22 12:04 UA Blood 0 Obey/uL Last Edit by Alea Phillips [facility] on 12/22/22 12:04 UA Specific [place] 1.025 Last Edit by Alea Phillips Liz on 12/22/22 12:04 UA Ketone Negative Last Edit by Alea Phillips [facility] on 12/22/22 12:04 UA Bilirubin 0 mg/dL Last Edit by Alea Phillips [facility] on 12/22/22 12:04 UA Glucose 0 mg/dL Last Edit by Alea Phillips [facility] on 12/22/22 12:04 Results Reviewed Results Reviewed: Laboratory Last Values Urine pH (Auto) 6 12/22/22 12:03 Specific [place] (Auto) 1.025 12/22/22 12:03 Urine Protein (Auto) 0 mg/dL 12/22/22 12:03 Glucose (UA)(Auto) 0 mg/dL 12/22/22 12:03 Urine Ketones (Auto) Negative 12/22/22 12:03 Urine Blood (Auto) 0 Obey/uL 12/22/22 12:03 Urine Nitrite (Auto) Negative 12/22/22 12:03 Urine Bilirubin (Auto) 0 mg/dL 12/22/22 12:03 Urine Urobilinogen (Auto) 0 mg/dL 12/22/22 12:03 Leukocyte Esterase (Auto) 0 Jeff/uL 12/22/22 12:03 Laboratory Tests 11/09/22 08:45 [place] DNA Probe Positive A EXAMINATION:? US PELVIS CLINICAL INFORMATION:? Hypertrophy of uterus. COMPARISON: CT abdomen/pelvis 08/03/2020 TECHNIQUE: Ultrasound of the pelvis is performed using both transabdominal and transvaginal transducers along with Doppler. Transvaginal imaging is performed due to inadequate visualization transabdominally. FINDINGS: UTERUS: The uterus is anteverted and retroflexed measuring 6.8 x 3.3 x 4.0 cm. The double wall endometrial thickness is 0.3 mm.? The uterus is smooth in contour and has normal myometrial echogenicity. There is a 1.4 x 0.7 x 1.1 cm fibroid in the mid uterine body along with a 1.4 x 1.1 x 1.2 cm cervical fibroid seen. ADNEXA: Both ovaries are visualized. There is normal color flow to the adnexa. There is no ovarian torsion. There is no pelvic ascites or fluid collection. Right ovary measures 2.2 x 1.0 x 1.6 cm for a volume 1.8 mL. Left ovary measures 1.8 x 1.2 x 1.5 cm for a volume 1.7 mL, US/US pelvic and transvaginal IMPRESSION: Small fibroids. EXAMINATION: MM DIAGNOSTIC DIGITAL BREAST TOMOSYNTHESIS, BILATERAL US DIAGNOSTIC ULTRASOUND BREAST, RIGHT CLINICAL INFORMATION:? 37-year-old with palpable area of concern mid 1:00 right breast for 1-2 months. No prior breast imaging. Family history breast cancer, paternal grandmother. TC score 18%. COMPARISON: None (current study represents initial baseline exam). TECHNIQUE: Digital breast tomosynthesis is performed in both the craniocaudal and mediolateral oblique views along with computer-aided detection (CAD). Synthesized 2D images are generated from the tomosynthesis. Ultrasound right breast is targeted to the area of clinical concern. Patient is able to point to the area of symptoms at time of imaging. Grayscale imaging and color Doppler are performed without and with harmonics. FINDINGS: There are scattered areas of fibroglandular density (ACR BI-RADS breast composition Category b). There are no significant masses, abnormal calcifications, or other abnormalities. ? There is incidental low left axillary tail node on MLO view. The bilateral axilla and skin contours are unremarkable. There is no mammographic correlate in the area of patient's clinical concern on the right. No skin thickening. No coarsening of the Daryl's ligaments. ? Ultrasound right breast shows no cystic or solid mass, architectural abnormality, or focal duct ectasia. Results and management options are discussed with the patient at time of visit. MM/MM tomosynthesis diagnostic BI IMPRESSION: -No mammographic evidence of malignancy. -Unremarkable targeted right breast ultrasound. ? ASSESSMENT:? BI-RADS 1: Negative ? RECOMMENDATION: 1. Patient should be managed based on the clinical impression. If there is still clinically palpable concern, further evaluation may be considered with surgical consult. Decision to proceed with biopsy should be based on clinical grounds and degree of clinical concern. ? 2. Otherwise, routine annual screening mammography, beginning age 40, or earlier as clinical risk factors warrant. ? This patient's information was entered into a reminder system with a target due date for their next mammogram. ? Assessment & Plan Assessment & Plan (1) Encounter to discuss test results: Code(s): Z71.2 - Person consulting for explanation of examination or test findings Plan: Discussed: Pelvic US findings of: Small fibroids. Breast US findings of: -No mammographic evidence of malignancy. -Unremarkable targeted right breast ultrasound. ASSESSMENT:? BI-RADS 1: Negative RECOMMENDATION: 1. Patient should be managed based on the clinical impression. If there is still clinically palpable concern, further evaluation may be considered with surgical consult. Decision to proceed with biopsy should be based on clinical grounds and degree of clinical concern. ?2. Otherwise, routine annual screening mammography, beginning age 40, or earlier as clinical risk factors warrant. Monitor periods, report any unscheduled bleeding, bleeding episodes less than 21 days apart or heavy prolonged menstrual bleeding. Leiomyoma: common pelvic neoplasm. Differential diagnosis-may include leiomyosarcoma which is a rare uterine sarcoma 3-7/100,000, difficult to distinguish from fibroids on ultrasound from uterine sarcoma's. Unlikely any single test will have a highly positive predictive value. Hysterectomy is not recommended for sole purpose of excluding malignant neoplasm. Expectant management follow yearly for stability. Normal breast examination today. Urine check-negative. Recommend of hydrating with water and avoid artificial sweeteners and carbonated drinks. All of her questions and concerns were addressed to the best of my ability and shared decision making. She is agreeable to plan of care. (2) Frequency of urination: Code(s): R35.0 - Frequency of micturition (3) Normal breast exam: Code(s): Z00.00 - Encounter for general adult medical examination without abnormal findings (4) Fibroid: Code(s): D21.9 - Benign neoplasm of connective and other soft tissue, unspecified Orders: Orders AMB Urinalysis Automated Today R35.0 - Frequency of micturition Medications: New metronidazole 500 mg PO Q12H 14 tabs 0RF 7 days Coding Level of Care Code Est Pt Level 4 (82538) Diagnoses Encounter to discuss test results Z71.2 Frequency of urination R35.0 Normal breast exam Z00.00 Fibroid D21.9
[2022-12-22 10:42] VITALS: BP 130/80; BMI 42.7
== END 2022-12-22 11:19 | disposition home or self-care (01) ==
LOC: HO.HWS 10:35
PROVIDERS: PCP Physician Assistant; Visit Provider Advanced Practice Midwife
DX: Z71.2 Person consulting for explanation of examination or test findings (principal); R35.0 Frequency of micturition; Z00.00 Encounter for general adult medical examination without abnormal findings; D21.9 Benign neoplasm of connective and other soft tissue, unspecified
CPT/HCPCS: 99214

== ENCOUNTER → 2022-12-22 10:35 | Outpatient (BNVA) | payer OTHER, SELFPAY | PROVIDERS: PCP Physician Assistant; Visit Provider Advanced Practice Midwife | DX: Z71.2 Person consulting for explanation of examination or test findings (principal); Z00.00 Encounter for general adult medical examination without abnormal findings; R35.0 Frequency of micturition; D21.9 Benign neoplasm of connective and other soft tissue, unspecified | CPT/HCPCS: 81003; 99212 ==

== ENCOUNTER 2023-03-07 10:16 | Outpatient (REF) | payer OTHER, SELFPAY ==
--- NOTE | ~2023-03-07 | US_ITS ---
EXAMINATION: US RETROPERITONEAL LIMITED (RENAL ONLY) CLINICAL INFORMATION: Calculus of kidney. COMPARISON: Ultrasound retroperitoneal limited (renal only) 02/10/2022 and 08/11/2021. X-ray abdomen KUB 08/20/2020. CT abdomen and pelvis with contrast 08/03/2020. TECHNIQUE: Real-time imaging of the kidneys. FINDINGS: RIGHT KIDNEY: 9.3 x 3.7 x 5.4 cm (SAG x AP x TRV). The kidney is normal in size, contour, and echogenicity. Renal cortical thickness is normal. No calculi or focal parenchymal lesions. No hydronephrosis. LEFT KIDNEY: 8.7 x 3.4 x 4.8 cm (SAG x AP x TRV). The kidney is normal in size, contour, and echogenicity. Renal cortical thickness is normal. No focal parenchymal lesions or hydronephrosis. 5 mm nonobstructing calculus in the upper pole. US/US renal BI IMPRESSION: 5 mm nonobstructing calculus in the upper left kidney. No hydronephrosis.
== END 2023-03-07 10:17 | disposition home or self-care (01) ==
LOC: HO.US 10:16
PROVIDERS: PCP Physician Assistant; Visit Provider Urology
DX: N20.0 Calculus of kidney (principal)
CPT/HCPCS: 76775

== ENCOUNTER 2023-03-24 17:42 | Emergency (ER) | payer OTHER, SELFPAY ==
--- NOTE | ~2023-03-24 | US_ITS ---
EXAMINATION: US RETROPERITONEAL LIMITED (RENAL ONLY) CLINICAL INFORMATION: Left flank pain. COMPARISON: Renal ultrasound 03/07/2023. TECHNIQUE: Real-time imaging of the kidneys. FINDINGS: RIGHT KIDNEY: 9.3 x 3.7 x 4.6 cm (SAG x AP x TRV). The kidney is normal in size, contour, and echogenicity. Renal cortical thickness is normal. No calculi or focal parenchymal lesions. No hydronephrosis. LEFT KIDNEY: 9.0 x 4 x 4.2 cm (SAG x AP x TRV). The kidney is normal in size, contour, and echogenicity. Renal cortical thickness is normal. No focal parenchymal lesions or hydronephrosis. Nonobstructive 0.3 cm calculus in the upper pole. US/US renal BI IMPRESSION: Nonobstructive 0.3 cm calculus in the upper pole of the left kidney.
--- NOTE | ~2023-03-24 | XR_ITS ---
EXAMINATION: XR ABDOMEN KUB CLINICAL INDICATION: Constipation. COMPARISON: None available. TECHNIQUE: AP view of the abdomen. FINDINGS: The bowel gas pattern is normal with no evidence of ileus or obstruction. There is scattered retained stool. No unusual soft tissue calcifications are noted. The bones are unremarkable. XR/XR KUB IMPRESSION: Nonspecific bowel gas pattern. Scattered retained stool.
--- NOTE | 2023-03-24 18:04 | ED.ABDPAIN ---
HPI - Abdominal Pain General Chief Complaint: Abdominal Pain Stated Complaint: lower abd pain Time Seen by Provider: 03/24/23 22:46 Source: patient Mode of arrival: ambulatory Limitations: no limitations History of Present Illness HPI narrative: Patient comes to the emergency room complaining of abdominal cramping and constipation for 2 days, left-sided flank pain intermittently for 1 week. Patient denies hematuria dysuria, no fever or chills. Patient denies nausea vomiting or diarrhea. Related Data Previous Rx's Medication Instructions Recorded miscellaneous medical supply #1 ea 04/22/22 (Blood Pressure Cuff) hydrochlorothiazide 25 mg tablet 25 mg PO DAILY #90 tabs 10/05/22 loratadine 10 mg tablet 10 mg PO DAILY 90 days #90 tabs 10/06/22 metronidazole 500 mg tablet 500 mg PO Q12H 7 days #14 tabs 12/22/22 fluticasone propionate 50 1 spray intranasal BID #48 mL 01/03/23 mcg/actuation nasal spray,suspension omeprazole 20 mg capsule,delayed 20 mg PO DAILY #90 caps 01/03/23 release allopurinol 100 mg tablet 100 mg PO DAILY #90 tabs 02/12/23 pyridoxine (vitamin B6) 100 mg 100 mg PO DAILY #90 tabs 02/12/23 tablet ondansetron HCl 8 mg tablet 8 mg PO Q12H PRN nausea and 03/04/23 vomiting 7 days #14 tabs valacyclovir 1 gram tablet 1,000 mg PO BID 10 days #20 tabs 03/04/23 (Valtrex) drospirenone 3 mg-ethinyl 1 tab PO DAILY #84 tabs 03/13/23 estradiol 0.03 mg tablet hyoscyamine sulfate 0.125 mg tablet 0.125 mg PO QID PRN dyspepsia #7 03/24/23 tabs polyethylene glycol 3350 17 gram 17 g PO BID #14 ea 03/24/23 oral powder packet (Miralax) Allergies Allergy/AdvReac Type Severity Reaction Status Date / Time No Known Allergies Allergy Verified 12/22/22 10:43 Review of Systems Review of Systems Constitutional : No Weight loss, No Fever, No Chills, No Night Sweats, No Fatigue, No Malaise ENT/Mouth : No Hearing loss, No Ear Pain, No Nasal Congestion, No Sinus Pain, No Hoarseness, No sore throat, No Rhinorrhea, No Swallowing Difficulty Eyes: No Eye Pain, No Swelling, No Redness, No Foreign Body, No Discharge, No Vision Changes Cardiovascular : No Chest Pain, No SOB, No Dyspnea on Exertion, No Orthopnea, No Edema, No Palpitations Respiratory : No Cough, No Sputum, No Wheezing, No Smoke Exposure, No Dyspnea Gastrointestinal : No Nausea, No Vomiting, No Diarrhea, complaining of constipation and abdominal cramping for about a week No Hematochezia, No Melena Genitourinary : no irregular bleeding, No Dysuria, No Urinary Frequency, No Hematuria, No Urinary Incontinence, No Urgency, complaining of intermittent left-sided Flank Pain, No Urinary Flow Changes, No Hesitancy Musculoskeletal : No joint pain, No Myalgias, No Joint Swelling Skin : No Skin Lesions, No rash Neuro : No Weakness, No Numbness, No Paresthesias, No Loss of Consciousness, No Dizziness, No Headache Psych : No Anxiety/Panic, No Depression, No SI/HI/AH/VH, No Social Issues, Heme/Lymph: No Bruising, No Bleeding,No Lymphadenopathy Endocrine : No Polyuria, No Polydipsia, No Temperature Intolerance [facility] Past Medical History Medical History Leiomyoma Frequency of urination HSV-1 (herpes simplex virus 1) infection HTN (hypertension) Kidney calculi Surgical History History of surgery Family History Family History Mother No problems noted. Father No problems noted. Social History Social History Housing: Apartment Alcohol intake: current Alcohol intake frequency: holidays/special occasions only Patient Tobacco Use Status: Never used Tobacco e-Cigarette/Vaping Use: Never Used Second Hand Smoke Exposure: No Advance Directives: No Advance Directives Information Provided: No service: No Current occupational status: disabled Cognitive needs: No Hearing needs: No Vision needs: Yes Physical Exam ED Vital Signs: Vital Signs - 24 hr 03/24/23 18:05 03/24/23 20:16 03/24/23 22:50 Temperature 97.2 F 98.4 F Pulse Rate 112 H 102 H 92 Respiratory Rate 17 16 17 Blood Pressure 168/104 H 169/91 H 140/95 H Pulse Oximetry 98 99 98 Oxygen Delivery Method Room Air Room Air Room Air BMI result Body Mass Index 41.5 Const Other: Appearance: Alert. Oriented X3. No acute distress. Appearing Eyes: Pupils equal, round and reactive to light. ENT: Pharynx normal. Neck: Normal inspection. Neck supple. No lymph nodes noted. No crepitus CVS: Normal heart rate and rhythm. Pulses normal. Normal S1 and S2 Respiratory: No respiratory distress. Breath sounds normal. No Wheezing. No rales Abdomen: Soft and nontender. No rigidity. No distention. Skin: Skin warm and dry. Normal skin color. Normal skin turgor. Extremities: No lower extremity edema. No Lacerations. No Rash Neuro: Oriented X 3. No motor deficit. No sensory deficit. Moving all extremities. No slurred speech. CN 2 through 12 grossly intact Psych: calm, cooperative, normal affect Course Course Course Narrative: RME: 37yo F w/PMHx BPPV, HTN, HSV, c/o constipation x2 days w/abdominal pain & nausea. Reports abdominal cramps. Is passing flatus. Also reports L flank pain intermittently x1 week. denies urinary sx Labs, UA, Abd US ordered Full HPI, ROS and PE to be performed by primary ED provider. Medical Decision Making Medical Decision Making [facility] Narrative: -my interpretation of labs: Hematology and chemistry, normal LFTs, urine negative for blood or UTI, negative test -my interpretation of renal ultrasound: No obvious hydronephrosis or obstruction -I discussed the labs and ultrasound with the patient, answered her been having abdominal discomfort secondary to constipation. Patient has a stable stone in the left pole of the kidney. Unlikely to be causing the source of the pain. -my interpretation of KUB: No obstructive pattern Differential Diagnosis Differential Diagnoses: The differential diagnosis associated with the presentation includes (UTI, pyelonephritis, ureterolithiasis, renal colic, viral syndrome muscular pain) Admission/Observation Consideration of admission/observation: Escalation of care including admission/observation considered (Given the patient's initial complaint of presentation, admission was considered) Lab Data [facility] Lab Attestation statement: I reviewed the patient's lab results. 03/24/23 18:49 10/19/23 18:49 Labs: Lab Results 03/24/23 03/24/23 Range/Units 18:44 18:49 WBC 9.6 (4.8-10.8) X10*3/uL RBC 5.59 H (4.20-5.50) X10*6/uL Hgb 13.8 (12.0-16.0) g/dl Hct 41.4 (37.0-47.0) % MCV 74.1 L (80.0-98.0) fL MCH 24.7 L (27.0-33.0) pg MCHC 33.3 (31.0-35.0) g/dl RDW 14.6 (11.0-16.0) % Plt Count 444 H (160-400) X10*3/uL MPV 9.6 (9.4-12.3) fL Immature Gran % (Auto) 0.2 (0.0-0.4) % Neut % (Auto) 73.5 H (45-73) % Lymph % (Auto) 19.0 L (20-40) % Garfield % (Auto) 5.4 (2-11) % Eos % (Auto) 1.5 (0-4) % Baso % (Auto) 0.4 (0-2) % Lymph # (Auto) 1.8 (1.2-4.9) X10*3/uL Garfield # (Auto) 0.5 (0.1-1.2) X10*3/uL Eos # (Auto) 0.1 (0.0-0.4) X10*3/uL Baso # (Auto) 0.0 (0.0-0.2) X10*3/uL Abs Immat Gran (auto) 0.02 (0.00-0.03) X10*3/uL Absolute Neuts (auto) 7.0 (2.0-8.3) x10*3/uL Absolute Nucleated RBC 0.000 (0.0-0.012) X10*3/uL Nucleated RBC % (auto) 0.0 (0.0-0.2) /100WBC Sodium 135 (135-145) mmol/L Potassium 3.4 (3.3-5.1) mmol/L Chloride 101 (96-108) mmol/L Carbon Dioxide 23 (22-29) mmol/L Anion Gap 14 (12-20) BUN 13 (9-16) mg/dL Creatinine 0.78 (0.5-1.4) mg/dL Estim Creat Clear Calc 55.7 Estimated GFR > 60 Random Glucose 127 H (60-115) mg/dL Calcium 10.1 D (8.4-10.2) mg/dL Magnesium 1.8 (1.6-2.6) mg/dL Total Bilirubin 0.2 (0.0-1.0) mg/dL Direct Bilirubin < 0.2 (0.0-0.5) mg/dL AST 15 (5-31) U/L ALT 11 (0-31) U/L Alkaline Phosphatase 76 (39-117) U/L Total Protein 8.2 H (6.5-8.0) g/dL Albumin 4.1 (3.5-5.0) g/dL Lipase 24 (8-78) U/L Urine Color Yellow Urine Appearance Clear Urine pH 5.5 (5.0-9.0) Ur Specific [place] 1.025 (1.005-1.025) Urine Protein Negative (Neg-Trace) mg/dL Urine Glucose (UA) Negative (Negative) mg/dL Urine Ketones Negative (Negative) mg/dL Urine Blood Negative (Negative) Urine Nitrite Negative (Negative) Ur Leukocyte Esterase Negative (Negative) Urine Test NEGATIVE (NEGATIVE) Independent Interpretation I performed an independent interpretation of an: Plain X-Ray and Ultrasound Radiology Impression Discussion of test interpretation with radiology: I have reviewed the radiologist's reading. Radiologist Impression: FINDINGS: RIGHT KIDNEY: 9.3 x 3.7 x 4.6 cm (SAG x AP x TRV). The kidney is normal in size, contour, and echogenicity. Renal cortical thickness is normal. No calculi or focal parenchymal lesions. No hydronephrosis. LEFT KIDNEY: 9.0 x 4 x 4.2 cm (SAG x AP x TRV). The kidney is normal in size, contour, and echogenicity. Renal cortical thickness is normal. No focal parenchymal lesions or hydronephrosis. Nonobstructive 0.3 cm calculus in the upper pole. US/US renal BI IMPRESSION: Nonobstructive 0.3 cm calculus in the upper pole of the left kidney. FINDINGS: The bowel gas pattern is normal with no evidence of ileus or obstruction. There is scattered retained stool. No unusual soft tissue calcifications are noted. The bones are unremarkable. XR/XR KUB IMPRESSION: Nonspecific bowel gas pattern. Scattered retained stool. Critical Care Time Critical Care Time Critical Care Time: Yes Total Critical Care Time: 45 Attestation: I have personally provided critical care time. Time includes review of lab data, radiology results, discussion with consultants, and monitoring for potential decompensation. Intervention performed as documented. Discharge Plan Discharge Clinical Impression: Abdominal pain, Constipation Patient Disposition: Home, Self-Care Instructions: Constipation (ED), Abdominal Pain (ED) Additional Instructions: Please follow-up with your primary care physician tomorrow. If you have any worsening or new symptoms, please return to the emergency room or call 911 Prescriptions: New polyethylene glycol 3350 [Miralax] 17 gram powder in packet 17 g PO BID Qty: 14 0RF hyoscyamine sulfate 0.125 mg tablet 0.125 mg PO QID PRN (Reason: dyspepsia) Qty: 7 0RF No Action hydrochlorothiazide 25 mg tablet 25 mg PO DAILY Qty: 90 1RF loratadine 10 mg tablet 10 mg PO DAILY 90 Days Qty: 90 1RF fluticasone propionate 50 mcg/actuation spray,suspension 1 spray intranasal BID Qty: 48 3RF omeprazole 20 mg capsule,delayed release(DR/EC) 20 mg PO DAILY Qty: 90 1RF allopurinol 100 mg tablet 100 mg PO DAILY Qty: 90 2RF pyridoxine (vitamin B6) 100 mg tablet 100 mg PO DAILY Qty: 90 2RF valacyclovir [Valtrex] 1 gram tablet 1,000 mg PO BID 10 Days Qty: 20 5RF ondansetron HCl 8 mg tablet 8 mg PO Q12H PRN (Reason: nausea and vomiting) 7 Days Qty: 14 2RF drospirenone-ethinyl estradiol 3-0.03 mg tablet 1 tab PO DAILY Qty: 84 2RF (DME) Blood Pressure Cuff Misc See Rx Instructions .ROUTE .MEDSUPPLY Qty: 1 0RF Rx Instructions: As directed metronidazole 500 mg tablet 500 mg PO Q12H 7 Days Qty: 14 0RF
[2023-03-24 18:05] VITALS: BP 168/104; PULSE 112; RESP 17; TEMP 36.2; O2SAT 98; BMI 41.5
[2023-03-24 18:53] LABS: MANUAL DIFF FLAG NO
[2023-03-24 18:56] LABS: Basophils Percent Auto 0.4 % (0-2); Eosinophils Absolute Auto 0.1 X10*3/uL (0.0-0.4); Eosinophils Percent Auto 1.5 % (0-4); Hematocrit 41.4 % (37.0-47.0); Hemoglobin 13.8 g/dl (12.0-16.0); Imm Gran Abs Auto 0.02 X10*3/uL (0.00-0.03); Imm Gran Pct Auto 0.2 % (0.0-0.4); Lymphocytes Absolute Auto 1.8 X10*3/uL (1.2-4.9); Mean Corpuscular HGB Conc 33.3 g/dl (31.0-35.0); Mean Corpuscular Hemoglobin 24.7 pg (27.0-33.0); Mean Corpuscular Volume 74.1 fL (80.0-98.0); Mean Platelet Volume 9.6 fL (9.4-12.3); Monocytes Absolute Auto 0.5 X10*3/uL (0.1-1.2); Monocytes Percent Auto 5.4 % (2-11); Neutrophils Percent Auto 73.5 % (45-73); Platelet Count 444 X10*3/uL (160-400); Red Blood Count 5.59 X10*6/uL (4.20-5.50); Red Cell Distribution Width 14.6 % (11.0-16.0); White Blood Count 9.6 X10*3/uL (4.8-10.8)
[2023-03-24 18:56] LABS: Appearance Urine Clear; Color Urine Yellow; Glucose Urine UA Negative (Negative); Leukocyte Esterase Urine Negative (Negative); Nitrite Urine Negative (Negative); PH 5.5 (5.0-9.0); Specific Gravity - Urine 1.025 (1.005-1.025); Urine Blood Negative (Negative); Urine Ketones Negative (Negative); Urine Protein Negative (Neg-Trace)
[2023-03-24 18:58] LABS: UPreg QC Valid YES; Urine Pregnancy NEGATIVE (NEGATIVE)
[2023-03-24 19:11] LABS: Alanine Aminotransferase 11 U/L (0-31); Albumin Level 4.1 g/dL (3.5-5.0); Alkaline Phosphatase 76 U/L (39-117); Anion Gap 14 (12-20); Aspartate Amino Transferase 15 U/L (5-31); Bilirubin Direct < 0.2 mg/dL (0.0-0.5); Bilirubin Total 0.2 mg/dL (0.0-1.0); Blood Urea Nitrogen 13 mg/dL (9-16); Calcium 10.1 mg/dL (8.4-10.2); Carbon Dioxide 23 mmol/L (22-29); Chloride 101 mmol/L (96-108); Creatinine Clr Calc Pharmacy 55.7; Estimated Glomerular Filt Rate > 60; Glucose Random 127 mg/dL (60-115); Lipase 24 U/L (8-78); Magnesium 1.8 mg/dL (1.6-2.6); Potassium 3.4 mmol/L (3.3-5.1); Sodium 135 mmol/L (135-145); Total Protein 8.2 g/dL (6.5-8.0)
[2023-03-24 20:16] VITALS: BP 169/91; PULSE 102; RESP 16; TEMP 36.9; O2SAT 99
[2023-03-24 22:50] VITALS: BP 140/95; PULSE 92; RESP 17; O2SAT 98
--- NOTE | 2023-03-24 23:14 | PC.NURSE ---
Pt ambulated int waiting
--- NOTE | 2023-03-24 23:15 | PC.NURSE ---
Pt ambulated into room with a steady gait, PT AOx4, Pt reporting 5/10 left flank pain, with Nausea and lower abdominal cramping, since Tuesday, last BM was tuesday described per pt watery stool with mucous, which is not normal. pt reports having a non-obstructive kidney stone [id number]. Pt reports a headache as well. Pt awaiting discharge.
[2023-03-24] MEDS: PHENobarb/Hyoscy/Atropine/Scop 10 ML ELIXIR 5 ML PO (23:28)
== END 2023-03-24 23:38 | disposition home or self-care (01) ==
PROVIDERS: Physician Assistant; Emergency Provider Emergency Medicine; PCP Physician Assistant
DX: R10.9 Unspecified abdominal pain (principal); K59.00 Constipation, unspecified; I10 Essential (primary) hypertension; E66.9 Obesity, unspecified; Z68.41 Body mass index [BMI] 40.0-44.9, adult; Z87.442 Personal history of urinary calculi; Z79.899 Other long term (current) drug therapy
CPT/HCPCS: 36415; 74018; 76775; 80048; 80076; 81003; 81025; 83690; 83735; 85025; 99284

== ENCOUNTER 2023-03-25 13:35 | Outpatient (AMB) | payer OTHER, SELFPAY ==
--- NOTE | 2023-03-25 13:36 | A.OFFVIS_ITS ---
Intake Intake Visit Reasons: 1 year follow up US Intake Note: Patient presents today for a 1 year follow-up on with US Results, completed on 03/07/2023: Meds- Vitamin B6 Allergies to Antibiotic- No Known Allergies Blood Thinner- None Bsa Officer Required: No Allergies No Known Allergies Allergy (Verified 12/22/22 10:43) HPI HPI Comments History of Present Illness Details Bernadette is a 37-year-old female who presents today to the office for a follow-up. 03/25/2023? She is followed today for US results, and kidney stones. LV- 03/25/22. The patient states that she was seen in ER recently with abdominal pain and also has had intermittent left flank pain, she feels like the flank pain is due to the kidney stone. I reviewed the ER notes which showed findings was constipation and the patient was given laxative to take which she has not picked up prescribed yet. I reviewed the renal US results from 03/24/2023 revealed nonobstructive 0.3 cm calculus in the upper pole of the left kidney. No calculi or focal parenchymal lesions. No hydronephrosis. I reviewed the KUB X-ray results from 03/24/2023 revealed nonspecific bowel gas pattern. I have reviewed the renal US past reports showed kidney stones, size ranges from 5 mm to 3 mm. I discussed 24-hour urine collection results done on 07/05/22: Urine vol- 840 mL, Urine calcium - 19, Urine oxalate was 22, urine citrate was 170, urine sodium was 158. I discussed with the patient that I will continue allopurinol 100 mg and vitamin B6 100 mg daily. Discussed Left ESWL. Discussed risks to include but not limited to, blood in the urine, bruising to the skin, kidney hematoma, possible need for another p rocedure if a stone fragment obstructs the ureter while passing, possible need to repeat procedure if stone is not completely fragmented. I will schedule shock wave lithotripsy. Consent was obtained for left ESWL. 03/25/2023: Evaluation today?UA? leukocy narcisa: negative; bloood: negative. 03/25/2023: Plan:Will schedule left ESWL . [facility] Medical History Leiomyoma Frequency of urination HSV-1 (herpes simplex virus 1) infection HTN (hypertension) Kidney calculi Surgical History History of surgery Family History Mother No problems noted. Father No problems noted. Social History Housing: Apartment Alcohol intake: current Alcohol intake frequency: holidays/special occasions only Patient Tobacco Use Status: Never used Tobacco e-Cigarette/Vaping Use: Never Used Second Hand Smoke Exposure: No service: No Current occupational status: disabled Cognitive needs: No Hearing needs: No Vision needs: Yes Review of Systems Const All systems reviewed & are unremarkable except as noted in HPI and below Reports no additional complaints Eyes Reports no additional complaints ENT Denies neck pain Resp Denies cough GI Denies constipation Reports no additional complaints Musc Reports no additional complaints and Denies neck pain Skin/Breast Denies rash and Denies unusual bruising Neuro Reports no additional complaints Psych Reports no additional complaints Endo Reports no additional complaints Mohit/Lymph Reports no additional complaints Aller/Immun Reports no additional complaints Results Reviewed Results Reviewed: Date of Service: 03/24/23 EXAMINATION:? XR ABDOMEN KUB CLINICAL INDICATION:? Constipation.?? COMPARISON:? None available.?? FINDINGS:? The bowel gas pattern is normal with no evidence of ileus or obstruction. There is scattered retained stool. No unusual soft tissue calcifications are noted. The bones are unremarkable. IMPRESSION: Nonspecific bowel gas pattern. Scattered retained stool. Date of Service: 03/24/23 EXAMINATION:? US RETROPERITONEAL LIMITED (RENAL ONLY) CLINICAL INFORMATION: Left flank pain. COMPARISON:? Renal ultrasound 03/07/2023. FINDINGS: RIGHT KIDNEY: 9.3 x 3.7 x 4.6 cm (SAG x AP x TRV). The kidney is normal in size, contour, and echogenicity. Renal cortical thickness is normal. No calculi or focal parenchymal lesions. No hydronephrosis. LEFT KIDNEY: 9.0 x 4 x 4.2 cm (SAG x AP x TRV). The kidney is normal in size, contour, and echogenicity. Renal cortical thickness is normal. No focal parenchymal lesions or hydronephrosis. Nonobstructive 0.3 cm calculus in the upper pole. IMPRESSION:? Nonobstructive 0.3 cm calculus in the upper pole of the left kidney. Assessment & Plan Assessment & Plan (1) Kidney stone on left side: Code(s): N20.0 - Calculus of kidney (2) Left flank pain: Code(s): R10.9 - Unspecified abdominal pain Plan Will schedule left ESWL. Medications: Refilled allopurinol 100 mg PO DAILY 90 tabs 2RF N20.0 - Calculus of kidney pyridoxine (vitamin B6) 100 mg PO DAILY 90 tabs 2RF N13.2 - Hydronephrosis with renal and ureteral calculous obstruction, N20.0 - Calculus of kidney Patient Instructions: The patient had an opportunity to ask questions regarding treatment plan. All questions were answered. Imaging, Laboratory studies and physical exam results were discussed and reviewed in detail. No major barriers to understanding were identified. The patient expressed understanding and agreement with the above treatment plan.? ? ? The patient is aware they should contact our office by phone for worsening of their current condition or the appearance of new symptoms. Compliance is encouraged with any medications and followup testing that is ordered.? ? ? It is a privilege to be allowed the opportunity to participate in the urologic care of your patient. If you have any questions or concerns regarding treatment for the above conditions please do not hesitate to contact me. The office telephone contact is [phone].? ? ? This note is constructed in part using voice recognition software. While every effort has been made to ensure accuracy mixing tank operator errors may have been included.? ? ? Yours sincerely,? ? ? Aggie Castro MD? ? Coding Level of Care Code Est Pt Level 4 (23727) Diagnoses Kidney stone on left side N20.0 Left flank pain R10.9
== END 2023-03-25 14:15 | disposition home or self-care (01) ==
PROVIDERS: Visit Provider Urology
DX: N20.0 Calculus of kidney (principal); R10.9 Unspecified abdominal pain
CPT/HCPCS: 99214

== ENCOUNTER → 2023-03-25 13:35 | Outpatient (BNVA) | payer OTHER, SELFPAY | PROVIDERS: Visit Provider Urology | DX: N20.0 Calculus of kidney (principal); R10.9 Unspecified abdominal pain | CPT/HCPCS: 99212 ==

== ENCOUNTER 2023-03-30 11:42 | Outpatient (REF) | payer OTHER, SELFPAY ==
[2023-03-30 12:29] LABS: Hematocrit 41.4 % (37.0-47.0); Hemoglobin 13.7 g/dl (12.0-16.0); Mean Corpuscular HGB Conc 33.1 g/dl (31.0-35.0); Mean Corpuscular Hemoglobin 24.4 pg (27.0-33.0); Mean Corpuscular Volume 73.8 fL (80.0-98.0); Platelet Count 431 X10*3/uL (160-400); Red Blood Count 5.61 X10*6/uL (4.20-5.50); Red Cell Distribution Width 14.5 % (11.0-16.0); White Blood Count 8.2 X10*3/uL (4.8-10.8)
[2023-03-30 13:05] LABS: Alanine Aminotransferase 13 U/L (0-31); Albumin Level 4.1 g/dL (3.5-5.0); Alkaline Phosphatase 72 U/L (39-117); Anion Gap 14 (12-20); Aspartate Amino Transferase 16 U/L (5-31); Bilirubin Total 0.2 mg/dL (0.0-1.0); Blood Urea Nitrogen 11 mg/dL (9-16); Calcium 9.8 mg/dL (8.4-10.2); Carbon Dioxide 21 mmol/L (22-29); Chloride 103 mmol/L (96-108); Cholesterol 109 mg/dL (<200); Estimated Glomerular Filt Rate > 60; Glucose Fasting 90 mg/dL (60-99); HDL Cholesterol 76 mg/dL (>40); LDL Cholesterol Calculated 25 mg/dL (<100); Potassium 3.7 mmol/L (3.3-5.1); Sodium 134 mmol/L (135-145); Total Protein 8.1 g/dL (6.5-8.0); Triglycerides 43 mg/dL (<150)
[2023-03-30 13:41] LABS: Creatinine Urine 161.56 mg/dL; Microalbum/Creatinine Ratio Ur 6.8 ug/mg cr (<30)
== END 2023-03-30 11:43 | disposition home or self-care (01) ==
LOC: HO.LAB 11:42
PROVIDERS: PCP Physician Assistant; Visit Provider Physician Assistant
DX: I10 Essential (primary) hypertension (principal)
CPT/HCPCS: 36415; 80053; 80061; 82043; 82570; 85027

== ENCOUNTER 2023-05-03 10:34 | Outpatient (AMB) | payer OTHER, SELFPAY ==
--- NOTE | 2023-05-03 11:13 | A.OFFPC_ITS ---
Vital Signs 05/03/23 11:14 Height 4 ft Weight 133 lb 6 oz BMI 40.7 BP 148/120 H Blood Pressure Location Lt brachial Position Sitting Pulse 108 H Pulse Source Pulse Oximeter Pulse Oximetry (%) 95 Intake Visit Reasons: Annual Exam Intake Note: Patient is here today for a physical. Pt has ongoing cough for two week. Covid test Negative past Tuesday. Also, persistent tension headaches for a few months. 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 Accompanied by: Self / Same As Patient Allergies No Known Allergies Allergy (Verified 05/03/23 11:31) Medication List - Last Reconciled 05/03/23 by Lisandro James PA-C allopurinol 100 mg PO DAILY drospirenone-ethinyl estradiol 3-0.03 mg 1 tab PO DAILY fluticasone propionate 50 mcg/actuation 1 spray intranasal BID hydrochlorothiazide 25 mg PO DAILY hyoscyamine sulfate 0.125 mg PO QID PRN loratadine 10 mg PO DAILY 90 days miscellaneous medical supply (Blood Pressure Cuff) As directed omeprazole 20 mg PO DAILY ondansetron HCl 8 mg PO Q12H PRN 7 days polyethylene glycol 3350 (Miralax) 17 grams PO BID pyridoxine (vitamin B6) 100 mg PO DAILY valacyclovir (Valtrex) 1,000 mg PO BID 10 days Tobacco use date assessed: 10/21/22 Dental Screening Dental Screen Date: 05/03/23 Did you have a dental visit in the last 12 months?: Yes Did you have a dental problem in the last 6 months where you did not have access to dental care?: No Was dental information given to patient?: Patient has dentist HPI Annual Exam HPI Details Patient is a 38-year-old female here today a routine annual physical.? Patient's past medical history significant for nephrolithiasis, hypertension , obesity,. Concern--> reports having pain in both elbows worse with movements. She denies any falls or trauma to her elbows. Hypertension:? Blood pressure elevated today in office. At home blood pressures have been elevated over the last several weeks. She has been reporting headaches. She does admit to some dietary indiscretion with high salt foods. .. Nephrolithiasis: Seeing Dr Sanabria --she is due for removal of a kidney stone in near future. . .. 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 VAccine: Declines flu, UTD with COVID vaccine and Tdap. Laboratory Tests 08/16/20 08/17/20 03/25/22 22:25 00:05 13:21 RBC 4.89 Hgb MCV Creatinine 0.89 AST 16 ALT 8 Cholesterol Urine Blood (Auto) 0 03/30/23 11:58 RBC Hgb 13.7 MCV 73.8 L Creatinine 0.71 AST ALT Cholesterol 109 Urine Blood (Auto) PFSH Medical History Leiomyoma Frequency of urination HSV-1 (herpes simplex virus 1) infection HTN (hypertension) Kidney calculi Surgical History History of surgery Family History Mother No problems noted. Father No problems noted. Social History (Updated 05/03/23 @ 11:34 by Lisandro James PA-C) Housing: Apartment Alcohol intake: current Alcohol intake frequency: holidays/special occasions only Patient Tobacco Use Status: Never used Tobacco e-Cigarette/Vaping Use: Never Used Second Hand Smoke Exposure: No service: No Current occupational status: disabled Cognitive needs: No Hearing needs: No Vision needs: Yes Questionnaire Thrive Questionnaire Date Thrive assessed: 04/22/22 WILLARD-7 AMB Questionnaire WILLARD-7 Date WILLARD - 7 assessed: 10/21/22 Source: Developed by Drs. Vinod Love, Mica Baez, Jarad Apple and colleagues, with an educational jose from [employer]. Review of Systems Const Denies body aches, Denies chills, Denies excessive sweating, Denies fatigue, Denies fever(s) and Denies headache(s) Eyes Denies blurry vision ENT Denies dysphagia, Denies vertigo, Denies dizziness, Denies headache(s), Denies hearing loss and Denies tinnitus Card Denies chest pain, Denies chest pain with activity, Denies syncope, Denies irregular heart rhythm and Denies dyspnea Resp Denies chest congestion, Denies cough, Denies hemoptysis, Denies dyspnea and Denies wheezing GI Denies abdominal pain, Denies melena, Denies hematochezia, Denies coffee ground emesis, Denies dysphagia, Denies diarrhea, Denies nausea and Denies vomiting Denies urinary frequency, Denies dysuria, Denies urinary hesitancy and Denies urinary urgency Musc Denies arthralgias, Denies limited range of motion, Denies muscle cramps and Denies muscle weakness Skin/Breast Denies rash and Denies skin ulcer Neuro Denies Abnormal speech present, Denies confusion, Denies vertigo, Denies dizziness, Denies syncope, Denies headache(s), Denies memory loss and Denies seizure-like activity Psych Denies anxiety, Denies confusion, Denies depression, Denies memory loss, Denies panic attacks and Denies paranoia Endo Denies excessive sweating, Denies fatigue, Denies flushing, Denies polydipsia and Denies polyuria Aller/Immun Denies wheezing Physical exam (Primary Care) Vital Signs: Last Vital Signs Pulse 108 H 05/03/23 11:14 BP 148/120 H 05/03/23 11:14 Pulse Ox 95 05/03/23 11:14 BMI result Body Mass Index 40.7 BMI Assessment/Plan discussion: High Tobacco/Smoking Status: Tobacco use Status Tobacco use date assessed 10/21/22 05/03/23 11:14 Patient Tobacco Use Status Never used Tobacco 05/03/23 11:34 e-Cigarette/Vaping Use Never Used 05/03/23 11:34 Thrive Assessment: Date of Thrive Assessment Date Thrive assessed 04/22/22 05/03/23 11:14 Const Other: Obese General: cooperative, comfortable, no acute distress, alert and awake; No confusion Orientation/consciousness: oriented to person, oriented to place, patient oriented x3 and No confusion HENMT Head: Yes normocephalic Ears: external ears normal and TM's normal bilaterally Face and sinus: No sinus tenderness Mouth: Normal oral and palatal mucosa present and tongue normal Teeth and gingiva: dentition normal and gingiva normal Throat: Yes posterior oropharynx normal, Yes tonsils normal and Yes uvula midline Eyes Conjunctivae: conjunctivae normal Sclerae: sclerae normal Pupils: Equal, round and reactive pupils present EOM: EOMs intact bilaterally Direct Ophthalmoscopy: No no photophobia Neck Neck: Yes no lymphadenopathy, No tender and Yes no JVD Thyroid: Thyroid normal Carotids: no bruits Chest Chest palpation & inspection: no tenderness Resp Effort & Inspection: normal respiratory effort, no audible wheezes, not labored and no stridor Auscultation: no crackles, no rales, no rhonchi and no wheezes Cardio Jugular venous distension: no JVD Rate: regular rate, not bradycardic and not tachycardic Rhythm: regular rhythm Bruits: no carotid bruits Peripheral pulses: Peripheral pulses 2+ throughout GI Inspection: Yes normal to inspection, No abdominal wall ecchymosis and No visible herniation Palpation (GI): Soft to palpation, nontender, no guarding, not rigid and No hepatosplenomegaly present Auscultation: normoactive bowel sounds General: Yes no CVA tenderness Back/Spine/Pelvis Back: no CVA tenderness and No back tenderness Cervical Spine: cervical ROM normal Thoracic/Lumbar Spine: thoracic and lumbar spine normal to inspection, straight leg raise negative bilaterally, No thoraco-lumbar ROM limited and No lumbar spinal tenderness Skin Lesions: no lesions Rashes: no rashes Wounds: no wounds Neuro General: oriented to person, oriented to place, patient oriented x3, CN's II-XI intact bilaterally and No confusion Cranial nerves: Yes Equal, round and reactive pupils present and Yes Normal accommodation reflex present Cognition (Neuro): normal cognition Speech: No Abnormal speech present Gait exam (Neuro): Normal gait present Motor exam (neuro): 5/5 motor strength present throughout Extrem Right upper extremity: full ROM; no cyanosis Left upper extremity: full ROM; no cyanosis Right lower extremity: no edema Left lower extremity: no edema Psych Appearance: grossly normal Mental Status: mental status grossly normal Affect: normal affect Attitude: cooperative Thought process: Normal thought process present Assessment and Plan Assessment & Plan (1) Annual physical exam: Code(s): Z00.00 - Encounter for general adult medical examination without abnormal findings (2) HTN (hypertension): Code(s): I10 - Essential (primary) hypertension Qualifiers: Hypertension type: primary hypertension Qualified Code(s): I10 - Essential (primary) hypertension Plan: Patient's blood pressure elevated today in office. Will add on lisinopril to her blood pressure med regime. Goal blood pressures be below 140/90 (3) Obese: Code(s): E66.9 - Obesity, unspecified Qualifiers: Body mass index: BMI 40.0-44.9 Obesity classification: adult class 3 (BMI >= 40) Obesity type: due to excess calories Serious obesity comorbidity presence: without serious comorbidity Qualified Code(s): E66.01 - Morbid (severe) obesity due to excess calories; Z68.41 - Body mass index [BMI]40.0- 44.9, adult Plan: Patient does understand her BMI is well over 40 and will work on being more physically active and adapting to better eating habits to reduce her weight (4) Pain of both elbows: Code(s): M25.521 - Pain in right elbow; M25.522 - Pain in left elbow Plan: Reports bilateral elbow pain. She has been using topical analgesics with only minimal relief. Will supply patient with meloxicam 15 mg to use on an as-needed basis. Will send for x-ray to evaluate for osteoarthritis. (5) Migraines: Code(s): G43.909 - Migraine, unspecified, not intractable, without status migrainosus Qualifiers: Migraine type: other Status migrainosus presence: without status migrainosus Intractability: not intractable Qualified Code(s): G43.809 - Other migraine, not intractable, without status migrainosus Plan: Patient has been experiencing frequent headaches. Will supply patient was sumatriptan the use for her migraine Orders: Orders XR elbow RT 2V 05/03/23 M25.521 - Pain in right elbow, M25.522 - Pain in left elbow Comprehensive [place]. Panel Fast 05/03/23 I10 - Essential (primary) hypertension Microalbumin, Random (w Creat) 05/03/23 I10 - Essential (primary) hypertension XR elbow LT 2V 05/03/23 M25.521 - Pain in right elbow, M25.522 - Pain in left elbow Complete Blood Count no Diff 05/03/23 I10 - Essential (primary) hypertension Medications: New sumatriptan succinate take 1 tab at onset of headache; if no relief may repeat 1 tab after at least 2 hrs; max = 4 tabs/24 hr PO 10 tabs 1RF G43.809 - Other migraine, not intractable, without status migrainosus lisinopril-hydrochlorothiazide 10-12.5 mg 1 tab PO DAILY 30 days 30 tabs 3RF I10 - Essential (primary) hypertension meloxicam 15 mg PO DAILY 15 days PRN 15 tabs 0RF pain M25.521 - Pain in right elbow, M25.522 - Pain in left elbow Discontinued hydrochlorothiazide Discontinued Reason: Doctor's Order 25 mg PO DAILY 90 tabs 1RF Coding Level of Care Code Est Pt Prev Care 18-39y(14380) Diagnoses Annual physical exam Z00.00 Primary hypertension I10 Hypertension type: primary hypertension Class 3 severe obesity due to excess calories without serious comorbidity with body mass index (BMI) of 40.0 to 44.9 in adult E66.01; Z68.41 Body mass index: BMI 40.0-44.9 Obesity classification: adult class 3 (BMI >= 40) Obesity type: due to excess calories Serious obesity comorbidity presence: without serious comorbidity Pain of both elbows M25.521; M25.522 Other migraine without status migrainosus, not intractable G43.809 Migraine type: other Status migrainosus presence: without status migrainosus Intractability: not intractable
[2023-05-03 11:14] VITALS: BP 148/120; PULSE 108; O2SAT 95; BMI 40.7
== END 2023-05-03 11:50 | disposition home or self-care (01) ==
PROVIDERS: Visit Provider Physician Assistant
DX: Z00.00 Encounter for general adult medical examination without abnormal findings (principal); I10 Essential (primary) hypertension; E66.01 Morbid (severe) obesity due to excess calories; Z68.41 Body mass index [BMI] 40.0-44.9, adult; M25.521 Pain in right elbow; M25.522 Pain in left elbow; G43.809 Other migraine, not intractable, without status migrainosus
CPT/HCPCS: 99395

== ENCOUNTER 2023-05-11 08:17 | Day surgery (SDC) | payer OTHER, SELFPAY ==
[2023-05-09 13:57] VITALS: BMI 39.7
--- NOTE | 2023-05-10 09:57 | HO.ANESPROP2 ---
HPI - Anesthesia Eval Consult details Narrative: 38yo F for Left ESWL with stent removal PMFSH Active Problems Active Problems: All Active Problems (Updated 05/04/23 @ 07:31 by Lisandro James PA-C) Migraines (Acute) Pain of both elbows (Acute) Left flank pain (Acute) Acute conjunctivitis, left eye (Acute) Allergic rhinitis (Acute) BPPV (benign paroxysmal positional vertigo) (Acute) Kidney stone on left side (Acute) Obese (Acute) Screening for diabetes mellitus (DM) (Acute) Screening for hypothyroidism (Acute) Annual physical exam (Acute) Nephrolithiasis (Acute) Leiomyoma (Acute) Frequency of urination (Acute) HTN (hypertension) (Acute) HSV-1 (herpes simplex virus 1) infection (Acute) Past Medical History Medical History (Updated 05/04/23 @ 07:31 by Lisandro James PA-C) Leiomyoma Frequency of urination HSV-1 (herpes simplex virus 1) infection HTN (hypertension) Kidney calculi Family History Family History Mother No problems noted. Father No problems noted. Surgical History Surgical History (Updated 05/09/23 @ 13:55 by Zakia Cuba RN) History of lithotripsy History of surgery Social History Social History (Updated 05/03/23 @ 11:34 by Lisandro James PA-C) Housing: Apartment Alcohol intake: current Alcohol intake frequency: holidays/special occasions only Patient Tobacco Use Status: Never used Tobacco e-Cigarette/Vaping Use: Never Used Second Hand Smoke Exposure: No service: No Current occupational status: disabled Cognitive needs: No Hearing needs: No Vision needs: Yes Meds Allergies Allergy/AdvReac Type Severity Reaction Status Date / Time No Known Allergies Allergy Verified 05/03/23 11:31 Exam Height,Weight and Vital Signs: Height 4 ft Weight 58.967 kg Pertinent Lab Results Pertinent Lab Results: Laboratory Tests 03/30/23 11:58 WBC 8.2 Hgb 13.7 Hct 41.4 Plt Count 431 H Sodium 134 L Potassium 3.7 Chloride 103 Carbon Dioxide 21 L BUN 11 Creatinine 0.71 Assessment and Plan Assessment Anesthesia Assessment: Chart Reviewed
[2023-05-11] VITALS (7 sets, daily range): BP systolic 109–141; BP diastolic 69–89; PULSE 74–89; RESP 15–18; TEMP 36.1–36.8; O2SAT 95–100; BMI 42.0
--- NOTE | ~2023-05-11 | XR_ITS ---
EXAMINATION: XR ABDOMEN KUB CLINICAL INDICATION: Left renal stone. COMPARISON: Renal ultrasound 03/24/2023. TECHNIQUE: AP view of the abdomen. FINDINGS: There is moderate stool in ascending and descending colon overlying both kidneys limiting evaluation. No obvious radiopaque density seen. There is no organomegaly. No gross bony abnormality. There is intramedullary right femoral caroline partially visualized. XR/XR KUB IMPRESSION: Moderate stool in colon overlying both the kidneys. Limited evaluation of kidneys.
[2023-05-11 09:44] LABS: UPreg QC Valid YES; Urine Pregnancy NEGATIVE (NEGATIVE)
--- NOTE | 2023-05-11 09:48 | HO.ANESPROP2 ---
[facility] Active Problems Active Problems: All Active Problems (Updated 05/11/23 @ 09:26 by Brianna Noyola RN) Migraines (Acute) Pain of both elbows (Acute) Left flank pain (Acute) Acute conjunctivitis, left eye (Acute) Allergic rhinitis (Acute) BPPV (benign paroxysmal positional vertigo) (Acute) Kidney stone on left side (Acute) Obese (Acute) Screening for diabetes mellitus (DM) (Acute) Screening for hypothyroidism (Acute) Annual physical exam (Acute) Nephrolithiasis (Acute) Leiomyoma (Acute) Frequency of urination (Acute) HTN (hypertension) (Acute) HSV-1 (herpes simplex virus 1) infection (Acute) Past Medical History Medical History GERD (gastroesophageal reflux disease) Leiomyoma Frequency of urination HSV-1 (herpes simplex virus 1) infection HTN (hypertension) Kidney calculi Family History Family History Mother No problems noted. Father No problems noted. Surgical History Surgical History History of lithotripsy History of surgery Social History Social History Housing: Apartment Alcohol intake: current Alcohol intake frequency: holidays/special occasions only Patient Tobacco Use Status: Never used Tobacco e-Cigarette/Vaping Use: Never Used Second Hand Smoke Exposure: No Use of substances other than those prescribed or required for medical reasons: No Are you DNR?: No Advance Directives: No Advance Directives Information Provided: Yes service: No Current occupational status: disabled Cognitive needs: No Hearing needs: No Vision needs: Yes Meds Allergies Allergy/AdvReac Type Severity Reaction Status Date / Time No Known Allergies Allergy Verified 05/11/23 09:27 Active Medications: Current Medications Lactated Ringer's (Lr) 1,000 mls @ 100 mls/hr IVCONT .Q10H STEVEN Exam Height,Weight and Vital Signs: Height 4 ft Weight 62.414 kg Pertinent Lab Results Pertinent Lab Results: Laboratory Tests 05/11/23 09:33 Urine Test NEGATIVE Airway Mallampati Class: III TM Dist: >3cm Neck ROM: Full Heart: RRR Lungs: CTA Assessment and Plan Assessment Anesthesia Assessment: Anesthesia Plan Discussed Final Anesthetic Review Final Preanesthetic Review: Meds/Allgs Chart Reviewed, Consent Obtained/Reviewed and Anes Risks/Benef Reviewed Patient Risk: Low Procedure Risk: Low Anesthetic Plan Anesthetic Plan: MAC: and Regional Block Disposition: Standard PACU
[2023-05-11] MEDS: Lactated Ringers 1,000 ML 100 ML IVCONT (10:01)
--- NOTE | 2023-05-11 10:11 | MHC.SHP ---
Pre-Procedural Eval Section A Date of Service: 05/11/23 The patient is an INPATIENT: No The History & Physical has been completed within 30 days and I have reviewed it.: No Section B Chief Complaint: Calculus of kidney Details of Present Illness: Bernadette is a 38 year old female with history of nephrolithiasis, left renal stone noted on renal US Relevant Family History (Specify if Yes): No Allergies: Allergies Allergy/AdvReac Type Severity Reaction Status Date / Time No Known Allergies Allergy Verified 05/11/23 09:27 Review of Systems Review of Systems Comment: 10 point ROS negative other than state in HPI Exam Surgical H&P Exam: Normal: HEENT, Normal: Heart, Normal: Lungs, Normal: Skin and Normal: Neurological Plan Diagnosis/Plan: Unchanged I have reviewed the history and physical and performed a pertinent physical examination on my patient. No changes have occurred unless specified. Left ESWL. Discussed risks to include but not limited to, blood in the urine, bruising to the skin, kidney hematoma, possible need for another procedure if a stone fragment obstructs the ureter while passing, possible need to repeat procedure if stone is not completely fragmented. Time Spent With Patient Time: Total time managing care of this patient today ____ minutes.
--- NOTE | 2023-05-11 11:39 | W.PM.OPN ---
Operative Note Operative Note Date of Service: 05/11/23 Narrative: PreOperative Diagnosis:? ? Left Renal stone Post Operative Diagnosis:?Left? Renal stone Procedure:?Left? ESWL Surgeon:?Dr Aggie Castro Anesthesia:? General Indications for procedure: The patient understands there is a risk of bruising or hematoma to the kidney, infection, and stone migration following the procedure and subsequent intervention may be required.? - Imaging 5 x 5 mm stone mid/upper pole left kidney seen on renal US. preESWL lithotripsy KUB, no radioopaque density noted, stool noted which limits modality. Procedure: After informed consent was verified the patient was brought to the operating room and placed in a supine position.? Anesthesia was performed per protocol. Safety pause time-out was performed. Imaging was displayed in the room and laterality confirmed. ESWL was performed.?The stone was visualized on ultrasound.? Shockwave lithotripsy was performed, the first 300 shocks at 120 hertz.? A pause for 3 minutes.? A total of 2500 shocks to a maximum of power of 17 with a maximum rate of 120 hertz.? Good fragmentation of the stone was appreciated. The patient tolerated the procedure well and was transferred to the recovery area upon completion. Complications: None
== END 2023-05-11 12:40 | disposition home or self-care (01) ==
PROVIDERS: Nurse Practitioner; PCP Physician Assistant; Visit Provider Urology
PROC: (CPT 50590; principal; 2023-05-11 09:50)
DX: N20.0 Calculus of kidney (principal); R10.9 Unspecified abdominal pain; R35.0 Frequency of micturition; I10 Essential (primary) hypertension; D21.9 Benign neoplasm of connective and other soft tissue, unspecified; K21.9 Gastro-esophageal reflux disease without esophagitis; Z79.899 Other long term (current) drug therapy
CPT/HCPCS: 50590; 74018; 81025; J0131; J0690; J1100; J2405; J2704

== ENCOUNTER → 2023-05-11 08:17 | Outpatient (BNV) | payer OTHER, SELFPAY | PROVIDERS: PCP Physician Assistant; Visit Provider Urology | DX: N20.0 Calculus of kidney (principal) | CPT/HCPCS: 50590 ==

== ENCOUNTER 2023-06-17 10:42 | Outpatient (AMB) | payer OTHER, SELFPAY ==
--- NOTE | 2023-06-17 11:21 | A.OFFVIS_ITS ---
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 Accompanied by: Self / Same As Patient Allergies No Known Allergies Allergy (Verified 06/27/23 10:49) Medication List - Last Reconciled 06/17/23 by Aggie Castro MD allopurinol 100 mg PO DAILY drospirenone-ethinyl estradiol 3-0.03 mg 1 tab PO DAILY fluticasone propionate 50 mcg/actuation 1 spray intranasal BID hyoscyamine sulfate 0.125 mg PO QID PRN lisinopril-hydrochlorothiazide 10-12.5 mg 1 tab PO DAILY 30 days loratadine 10 mg PO DAILY 90 days meloxicam 15 mg PO DAILY PRN 15 days miscellaneous medical supply (Blood Pressure Cuff) As directed omeprazole 20 mg PO DAILY ondansetron HCl 8 mg PO Q12H PRN 7 days oxycodone-acetaminophen 5-325 mg (Percocet) 1 tab PO Q4-6H PRN polyethylene glycol 3350 (Miralax) 17 grams PO BID pyridoxine (vitamin B6) 100 mg PO DAILY sumatriptan succinate take 1 tab at onset of headache; if no relief may repeat 1 tab after at least 2 hrs; max = 4 tabs/24 hr PO tamsulosin (Flomax) 0.4 mg PO BEDTIME valacyclovir (Valtrex) 1,000 mg PO BID 10 days HPI HPI Comments History of Present Illness Details Bernadette is a 37-year-old female who presents today to the office for a follow-up. 06/17/23-- s/p Left ESWL in e patient states she has not passsed any stones, She did have pain along the left side about 5 days ago. I will have her use flomax 0.4 mg for 7 days and encouraged increase fluids Review of chart: 03/25/2023? She is followed today for US results, and kidney stones. LV- 03/25/22. The patient states that she was seen in ER recently with abdominal pain and also has had intermittent left flank pain, she feels like the flank pain is due to the kidney stone. I reviewed the ER notes which showed findings was constipation and the patient was given laxative to take which she has not picked up prescribed yet. renal US results from 03/24/2023 revealed nonobstructive 0.3 cm calculus in the upper pole of the left kidney. No calculi or focal parenchymal lesions. No hydronephrosis. KUB X-ray results from 03/24/2023 revealed nonspecific bowel gas pattern. I have reviewed the renal US past reports showed kidney stones, size ranges from 5 mm to 3 mm. 24-hour urine collection results done on 07/05/22: Urine vol- 840 mL, Urine calcium - 19, Urine oxalate was 22, urine citrate was 170, urine sodium was 158. 06/17/23---renal US in one month FU post flomax for 7 days, continue allopurinol 100 mg and vitamin B6 100 mg daily. [facility] Medical History (Updated 07/21/23 @ 11:16 by Allie Vidales MD) History of dwarfism GERD (gastroesophageal reflux disease) Leiomyoma Frequency of urination HSV-1 (herpes simplex virus 1) infection HTN (hypertension) Kidney calculi Surgical History History of lithotripsy History of surgery Family History Mother No problems noted. Father No problems noted. Social History Housing: Apartment Alcohol intake: current Alcohol intake frequency: holidays/special occasions only Patient Tobacco Use Status: Never used Tobacco e-Cigarette/Vaping Use: Never Used Second Hand Smoke Exposure: No service: No Current occupational status: disabled Cognitive needs: No Hearing needs: No Vision needs: Yes Review of Systems Const All systems reviewed & are unremarkable except as noted in HPI and below Reports no additional complaints Eyes Reports no additional complaints ENT Denies neck pain Resp Denies cough GI Denies constipation Reports no additional complaints Musc Reports no additional complaints and Denies neck pain Skin/Breast Denies rash and Denies unusual bruising Neuro Reports no additional complaints Psych Reports no additional complaints Endo Reports no additional complaints Mohit/Lymph Reports no additional complaints Aller/Immun Reports no additional complaints Results AMB Urinalysis, Automated UA Leukoctes 0 Jeff/uL Last Edit by BREANNE Zamarripa on 06/17/23 11:28 UA Nitrite Negative Last Edit by BREANNE Zamarripa on 06/17/23 11:28 UA Urobilinogen 0.2 mg/dL Last Edit by BREANNE Zamarripa on 06/17/23 11:2 8 UA Protein 0 mg/dL Last Edit by BREANNE Zamarripa on 06/17/23 11:28 UA pH 6.0 Last Edit by BREANNE Zamarripa on 06/17/23 11:28 UA Blood 0 Obey/uL Last Edit by BREANNE Zamarripa on 06/17/23 11:28 UA Specific [place] 1.020 Last Edit by BREANNE Zamarripa on 06/17/23 11: 28 UA Ketone Negative Last Edit by BREANNE Zamarripa on 06/17/23 11:28 UA Bilirubin 0 mg/dL Last Edit by BREANNE Zamarripa on 06/17/23 11:28 UA Glucose 0 mg/dL Last Edit by BREANNE Zamarripa on 06/17/23 11:28 Results Reviewed Results Reviewed: Laboratory Last Values Urine pH (Auto) 6.0 06/17/23 11:26 Specific [place] (Auto) 1.020 06/17/23 11:26 Urine Protein (Auto) 0 mg/dL 06/17/23 11:26 Glucose (UA)(Auto) 0 mg/dL 06/17/23 11: Urine Ketones (Auto) Negative 06/17/23 11:26 Urine Blood (Auto) 0 Obey/uL 06/17/23 11:26 Urine Nitrite (Auto) Negative 06/17/23 11:26 Urine Bilirubin (Auto) 0 mg/dL 06/17/23 11:26 Urine Urobilinogen (Auto) 0.2 mg/dL 06/17/23 11:26 Leukocyte Esterase (Auto) 0 Jeff/uL 06/17/23 11:26 Assessment & Plan Assessment & Plan (1) Kidney stone on left side: Code(s): N20.0 - Calculus of kidney Plan 06/17/23---renal US in one month FU post flomax for 7 days, continue allopurinol 100 mg and vitamin B6 100 mg daily. Orders: Orders US renal BI 1 Month N20.0 - Calculus of kidney AMB Urinalysis Automated 06/17/23 Z13.9 - Encounter for screening, unspecified Medications: New tamsulosin (Flomax) 0.4 mg PO BEDTIME 7 caps 0RF to help pass stones Coding Level of Care Code Global (11093) Diagnoses Kidney stone on left side N20.0
== END 2023-06-17 11:37 | disposition home or self-care (01) ==
PROVIDERS: PCP Physician Assistant; Visit Provider Urology
DX: N20.0 Calculus of kidney (principal)
CPT/HCPCS: 99024

== ENCOUNTER → 2023-06-17 10:42 | Outpatient (BNVA) | payer OTHER, SELFPAY | PROVIDERS: PCP Physician Assistant; Visit Provider Urology | DX: N20.0 Calculus of kidney (principal); Z79.899 Other long term (current) drug therapy; Z98.890 Other specified postprocedural states | CPT/HCPCS: 81003; 99212 ==

== ENCOUNTER 2023-06-23 11:26 | Outpatient (REF) | payer OTHER, SELFPAY ==
--- NOTE | ~2023-06-23 | XR_ITS ---
EXAMINATION: XR ELBOW, BILATERAL CLINICAL INFORMATION: Reason for Exam M25.521 - Pain in elbow COMPARISON: Elbow radiographs 11/22/2016 TECHNIQUE: Three views of the lateral elbows. FINDINGS: No acute fracture. There are chronic-appearing bilateral radial head dislocations, which on the right is similar to remote prior. 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 No joint effusion. No soft tissue abnormality. XR/XR elbow LT 2V IMPRESSION: 1. Chronic-appearing bilateral radial head dislocations, which on the right is similar to remote prior. 2. 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
--- NOTE | ~2023-06-23 | XR_ITS ---
EXAMINATION: XR ELBOW, BILATERAL CLINICAL INFORMATION: Reason for Exam M25.521 - Pain in elbow COMPARISON: Elbow radiographs 11/22/2016 TECHNIQUE: Three views of the lateral elbows. FINDINGS: No acute fracture. There are chronic-appearing bilateral radial head dislocations, which on the right is similar to remote prior. 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 No joint effusion. No soft tissue abnormality. XR/XR elbow RT 2V IMPRESSION: 1. Chronic-appearing bilateral radial head dislocations, which on the right is similar to remote prior. 2. 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
[2023-06-23 12:23] LABS: Hematocrit 36.3 % (37.0-47.0); Hemoglobin 11.6 g/dl (12.0-16.0); Mean Corpuscular Hemoglobin 24.7 pg (27.0-33.0); Mean Corpuscular Volume 77.2 fL (80.0-98.0); Mean Platelet Volume 10.2 fL (9.4-12.3); Platelet Count 309 X10*3/uL (160-400); Red Cell Distribution Width 14.8 % (11.0-16.0); White Blood Count 6.5 X10*3/uL (4.8-10.8)
[2023-06-23 13:11] LABS: Alanine Aminotransferase 14 U/L (0-31); Albumin Level 3.6 g/dL (3.5-5.0); Alkaline Phosphatase 68 U/L (39-117); Anion Gap 13 (12-20); Aspartate Amino Transferase 21 U/L (5-31); Bilirubin Total 0.2 mg/dL (0.0-1.0); Blood Urea Nitrogen 13 mg/dL (9-16); Calcium 9.1 mg/dL (8.4-10.2); Carbon Dioxide 24 mmol/L (22-29); Chloride 107 mmol/L (96-108); Estimated Glomerular Filt Rate > 60; Glucose Fasting 93 mg/dL (60-99); Microalbumin Urine < 5.0 mg/L; Potassium 3.7 mmol/L (3.3-5.1); Sodium 140 mmol/L (135-145); Total Protein 7.2 g/dL (6.5-8.0)
== END 2023-06-23 11:27 | disposition home or self-care (01) ==
LOC: HO.XRAY 11:26
PROVIDERS: PCP Physician Assistant; Visit Provider Physician Assistant
DX: M25.521 Pain in right elbow (principal); M25.522 Pain in left elbow; I10 Essential (primary) hypertension
CPT/HCPCS: 36415; 73070; 80053; 82043; 82570; 85027

== ENCOUNTER 2023-06-27 10:26 | Outpatient (AMB) | payer OTHER, SELFPAY ==
[2023-06-27 10:42] VITALS: BP 128/80; PULSE 92; O2SAT 95; BMI 41.8
--- NOTE | 2023-06-27 10:42 | A.OFFPC_ITS ---
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 Accompanied by: Self / Same As Patient Allergies No Known Allergies Allergy (Verified 06/27/23 10:49) Medication List - Last Reconciled 06/27/23 by Lisandro James PA-C allopurinol 100 mg PO DAILY drospirenone-ethinyl estradiol 3-0.03 mg 1 tab PO DAILY fluticasone propionate 50 mcg/actuation 1 spray intranasal BID hyoscyamine sulfate 0.125 mg PO QID PRN lisinopril-hydrochlorothiazide 10-12.5 mg 1 tab PO DAILY 30 days loratadine 10 mg PO DAILY 90 days meloxicam 15 mg PO DAILY PRN 15 days miscellaneous medical supply (Blood Pressure Cuff) As directed omeprazole 20 mg PO DAILY ondansetron HCl 8 mg PO Q12H PRN 7 days polyethylene glycol 3350 (Miralax) 17 grams PO BID pyridoxine (vitamin B6) 100 mg PO DAILY sumatriptan succinate take 1 tab at onset of headache; if no relief may repeat 1 tab after at least 2 hrs; max = 4 tabs/24 hr PO tamsulosin (Flomax) 0.4 mg PO BEDTIME valacyclovir (Valtrex) 1,000 mg PO BID 10 days Tobacco use date assessed: 06/27/23 Dental Screening Dental Screen Date: 06/27/23 Did you have a dental visit in the last 12 months?: Yes Did you have a dental problem in the last 6 months where you did not have access to dental care?: No Was dental information given to patient?: Patient has dentist HPI f/u HTN HPI Details Patient is a 38-year-old female here today a ? Patient's past medical history significant for nephrolithiasis, hypertension , obesity,. Concern--> reports having pain in both elbows worse with movements. She denies any falls or trauma to her elbows. Recent x-ray showing--> Chronic-appearing bilateral radial head dislocations, which on the right is similar to remote prior. 2. 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 PLAN: She is interested in seeing hand/forarm surgeon for possible cortisone injection Hypertension:? Blood pressure today in office. At last visit we made adjustments in her blood pressure medication and blood pressures have been much controlled. Having less headaches .. Nephrolithiasis: Seeing Dr Sanabria --she is due for removal of a kidney stone in near future. [facility] Medical History GERD (gastroesophageal reflux disease) Leiomyoma Frequency of urination HSV-1 (herpes simplex virus 1) infection HTN (hypertension) Kidney calculi Surgical History History of lithotripsy History of surgery Family History Mother No problems noted. Father No problems noted. Social History Housing: Apartment Alcohol intake: current Alcohol intake frequency: holidays/special occasions only Patient Tobacco Use Status: Never used Tobacco e-Cigarette/Vaping Use: Never Used Second Hand Smoke Exposure: No service: No Current occupational status: disabled Cognitive needs: No Hearing needs: No Vision needs: Yes Questionnaire PHQ-9 Over the last 2 weeks, how often have you been bothered by any of the following problems? 1. Little interest or pleasure in doing things: not at all 2. Feeling down, depressed, or hopeless: not at all 3. Trouble falling or staying asleep, or sleeping too much: not at all 4. Feeling tired or having little energy: not at all 5. Poor appetite or overeating: not at all 6. Feeling bad about yourself - or that you are a failure or have let yourself or your family down: not at all 7. Trouble concentrating on things, such as reading the newspaper or watching television: not at all 8. Moving or speaking so slowly that other people could have noticed. Or the opposite - being so fidgety or restless that you have been moving around a lot more than usual: not at all 9. Thoughts that you would be better off or of hurting yourself in some way: not at all Total score: 0 Depression Screening Interpretation: Negative Depression Screening Done: Yes 97016 - PHQ-9 Billing: Yes Source: Developed by Drs. Vinod Love, Mica Baez, Jarad Apple and colleagues, with an educational jose from [employer]. Thrive Questionnaire Date Thrive assessed: 06/27/23 I am a: Patient What is your living situation today?: I have a steady place to live Within the past 12 months, did the food you bought not last and you didn't have the money to get more?: Never true Within the past 12 months, did you worry whether your food would run out before you got money to buy more?: Never true Do you have trouble paying for medicines?: No Do you have trouble getting transportation to medical appointments?: No Do you have trouble paying your heating and electricity bill?: No Do you have trouble taking care of your child, family member or friend?: No Do you have trouble with day-to-day activities such as bathing, preparing meals, shopping, managing finances, etc.?: No Are you currently unemployed and looking for a job?: No Are you interested in more education?: No Please select the resources that you would like help with: None Currently or been in a relationship where the following occur: no concerns reported THRIVE Score: 0 AUDIT C Alcohol Use Questionnaire (AUDIT-C) 1. How often do you have a drink containing alcohol?: Monthly or less 2. How many drinks containing alcohol do you have on a typical day when you are drinking?: 1 or 2 3. How often do you have six or more drinks on one occasion?: Never Total Score: 1 WILLARD-7 AMB Questionnaire WILLARD-7 Date WILLARD - 7 assessed: 06/27/23 Feeling nervous, anxious, or on edge: 0 = Not at all Not being able to stop or control worryin = Not at all Worrying too much about different things: 0 = Not at all Trouble relaxin = Not at all Being so restless that it is hard to sit still: 0 = Not at all Becoming easily annoyed or irritable: 0 = Not at all Feeling afraid as if something awful might happen: 0 = Not at all Total WILLARD-7 score (0-4 normal; 5-9 mild; 10-14 moderate; 15-21 severe): 0 Source: Developed by Drs. Vinod Love, Mica Baez, Jarad Apple and colleagues, with an educational jose from [employer]. WILLARD-7 Assessment Billing WILLARD-7 Assessment Tool: WILLARD-7 Assessment 15146 Review of Systems Const Denies headache(s) Eyes Denies loss of vision ENT Denies vertigo, Denies dizziness, Denies headache(s) and Denies sore throat Card Denies chest pain, Denies leg edema and Denies lightheadedness Resp Denies cough, Denies hemoptysis and Denies wheezing GI Denies abdominal pain, Denies melena, Denies constipation, Denies diarrhea and Denies vomiting Denies urinary frequency, Denies dysuria and Denies urinary urgency Musc Denies arthralgias, Denies joint swelling, Denies numbness and Denies tingling Neuro Denies Abnormal speech present, Denies behavioral changes, Denies vertigo, Denies dizziness, Denies headache(s), Denies loss of vision, Denies memory loss, Denies numbness and Denies tingling Psych Denies anxiety, Denies behavioral changes, Denies depression, Denies memory loss and Denies panic attacks Mohit/Lymph Denies easy bleeding and Denies easy bruising Aller/Immun Denies wheezing Physical exam (Primary Care) Vital Signs: Last Vital Signs Pulse 92 06/27/23 10:42 BP 128/80 06/27/23 10:42 Pulse Ox 95 06/27/23 10:42 Oxygen Delivery Method Room Air 06/27/23 10:42 BMI result Body Mass Index 41.8 Tobacco/Smoking Status: Tobacco use Status Tobacco use date assessed 06/27/23 06/27/23 10:48 Patient Tobacco Use Status Never used Tobacco 06/27/23 10:44 e-Cigarette/Vaping Use Never Used 06/27/23 10:44 PHQ-9: PHQ-9 Score PHQ-9: Total score 0 06/28/23 07:56 Depression Screening Interpretation: Negative Thrive Assessment: Date of Thrive Assessment Date Thrive assessed 06/27/23 06/27/23 10:48 Currently or been in a relationship where the following occur: no concerns reported Const General: healthy appearing, no acute distress, alert and awake Nutritional Appearance: well nourished Orientation/consciousness: oriented to person, oriented to place and oriented to time HENMT Ears: TM's normal bilaterally General nose exam: Normal nasal mucous membranes and turbinates present Eyes Conjunctivae: conjunctivae normal Sclerae: sclerae normal Pupils: Equal, round and reactive pupils present Neck Neck: Yes no lymphadenopathy and Yes no JVD Thyroid: Thyroid normal Carotids: no bruits Resp Effort & Inspection: normal respiratory effort and not tachypneic Auscultation: no crackles, no rales, no rhonchi and no wheezes Cardio Rate: regular rate Rhythm: regular rhythm Heart sounds: no murmurs and normal S1 and S2 GI Palpation (GI): Soft to palpation, nontender, no hepatomegaly and no splenomegaly Auscultation: normal bowel sounds Skin General skin exam: no rashes or lesions noted and dry skin Neuro General: oriented to person, oriented to place and oriented to time Cranial nerves: Yes Equal, round and reactive pupils present Speech: No Abnormal speech present Gait exam (Neuro): Normal gait present Motor exam (neuro): no tremor noted Extrem Right upper extremity: full ROM Left upper extremity: full ROM Right lower extremity: full ROM; no edema Left lower extremity: full ROM; no edema Psych Mental Status: mental status grossly normal Speech and movement: Normal speech and movement present Affect: normal affect Attitude: cooperative Thought process: Normal thought process present Assessment and Plan Assessment & Plan (1) HTN (hypertension): Code(s): I10 - Essential (primary) hypertension Qualifiers: Hypertension type: primary hypertension Qualified Code(s): I10 - Essential (primary) hypertension Plan: Patient's blood pressure acceptable today in office. Will continue her current dose of anti hypertensive medication with goal blood pressure to remain below 140/90 (2) Asthma: Code(s): J45.909 - Unspecified asthma, uncomplicated Qualifiers: Asthma complication type: uncomplicated Asthma persistence: unspecified Asthma severity: mild Qualified Code(s): J45.909 - Unspecified asthma, uncomplicated Plan: Patient reports her asthma has been more evident of late. Seems to be related to her allergies. Continues with allergy medication on a daily and Flonase as needed. Would like an albuterol inhaler to use on an as-needed basis. (3) Osteoarthritis of elbows, bilateral: Code(s): M19.021 - Primary osteoarthritis, right elbow; M19.022 - Primary osteoarthritis, left elbow Qualifiers: Osteoarthritis type: primary Qualified Code(s): M19.021 - Primary osteoarthritis, right elbow; M19.022 - Primary osteoarthritis, left elbow Plan: Noted to have bilateral elbow moderate arthritis. Does report meloxicam is helpful as needed. She is interested in perhaps getting cortisone injection. Orders: Referrals Orthopedics Referral M19.021 - Primary osteoarthritis, right elbow, M19.022 - Primary osteoarthritis, left elbow Medications: New albuterol sulfate 90 mcg/actuation 1 inh inhalation QID 30 days PRN 8.5 grams 0RF shortness of breath or wheezing J45.909 - Unspecified asthma, uncomplicated Coding Level of Care Code Est Pt Level 4 (49866) Diagnoses Primary hypertension I10 Hypertension type: primary hypertension Mild asthma without complication, unspecified whether persistent J45.909 Asthma complication type: uncomplicated Asthma persistence: unspecified Asthma severity: mild Primary osteoarthritis of both elbows M19.021; M19.022 Osteoarthritis type: primary Additional Codes WILLARD-7 Assessment Billing - WILLARD-7 Assessment Tool: WILLARD-7 Assessment [id number] ([id number])
== END 2023-06-27 11:21 | disposition home or self-care (01) ==
PROVIDERS: PCP Physician Assistant; Visit Provider Physician Assistant
DX: I10 Essential (primary) hypertension (principal); J45.909 Unspecified asthma, uncomplicated; M19.021 Primary osteoarthritis, right elbow; M19.022 Primary osteoarthritis, left elbow
CPT/HCPCS: 99214

== ENCOUNTER 2023-07-13 12:14 | Outpatient (REF) | payer OTHER, SELFPAY ==
--- NOTE | ~2023-07-13 | US_ITS ---
EXAMINATION: US RETROPERITONEAL LIMITED (RENAL ONLY) CLINICAL INFORMATION: Calculus of kidney. Status post left ESWL May 2023. COMPARISON: X-ray abdomen 05/11/2023 and 03/24/2023. Renal ultrasound 03/24/2023 and 03/07/2023. CT abdomen and pelvis with contrast 08/03/2020. TECHNIQUE: Real-time imaging of the kidneys. FINDINGS: RIGHT KIDNEY: 9.7 x 3.8 x 5.4 cm (SAG x AP x TRV). The kidney is normal in size, contour, and echogenicity. Renal cortical thickness is normal. No calculi or focal parenchymal lesions. No hydronephrosis. LEFT KIDNEY: 9.2 x 4.2 x 4 cm (SAG x AP x TRV). The kidney is normal in size, contour, and echogenicity. Renal cortical thickness is normal. 6 mm nonobstructing upper pole calculus. No hydronephrosis. US/US renal BI IMPRESSION: 6 mm nonobstructing left renal calculus. No right-sided renal calculi. No hydronephrosis of either kidney.
== END 2023-07-13 12:15 | disposition home or self-care (01) ==
LOC: HO.US 12:14
PROVIDERS: PCP Physician Assistant; Visit Provider Urology
DX: N20.0 Calculus of kidney (principal)
CPT/HCPCS: 76775

== ENCOUNTER 2023-07-21 10:42 | Outpatient (AMB) | payer OTHER, SELFPAY ==
[2023-07-21 10:45] VITALS: BMI 41.8
--- NOTE | 2023-07-21 10:45 | A.OFFVIS_ITS ---
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 Patient reports that she has had bilateral elbow pain on the medial aspect of the elbow. She has pain all the time but worse with certain movements, worse at night. The medial aspect of the elbows are also tender to palpitation. She is taking meloxicam PRN which does provide some relief. She was referred by her pcp for evaluation and possible cortisone injection Allergies No Known Allergies Allergy (Verified 06/27/23 10:49) Medication List - Last Reconciled 07/21/23 by Allie Vidales MD albuterol sulfate 90 mcg/actuation 1 inh inhalation QID PRN 30 days allopurinol 100 mg PO DAILY drospirenone-ethinyl estradiol 3-0.03 mg 1 tab PO DAILY fluticasone propionate 50 mcg/actuation 1 spray intranasal BID hyoscyamine sulfate 0.125 mg PO QID PRN lisinopril-hydrochlorothiazide 10-12.5 mg 1 tab PO DAILY 30 days loratadine 10 mg PO DAILY 90 days meloxicam 15 mg PO DAILY PRN 15 days miscellaneous medical supply (Blood Pressure Cuff) As directed omeprazole 20 mg PO DAILY ondansetron HCl 8 mg PO Q12H PRN 7 days polyethylene glycol 3350 (Miralax) 17 grams PO BID pyridoxine (vitamin B6) 100 mg PO DAILY sumatriptan succinate take 1 tab at onset of headache; if no relief may repeat 1 tab after at least 2 hrs; max = 4 tabs/24 hr PO tamsulosin (Flomax) 0.4 mg PO BEDTIME valacyclovir (Valtrex) 1,000 mg PO BID 10 days HPI HPI Comments History of Present Illness Details Patient denies history of dislocation or fracture of elbow. 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 New onset elbow pain, 1 year, no inciting injuries. Equal bilateral, more medial. Non radicular. Denies numbness. Denies weakness on hands. Treatment done so far: NSAIDs History of femur and tibia/fibula corrective surgeries, right, 2000. [facility] Medical History (Updated 07/21/23 @ 11:16 by Allie Vidales MD) History of dwarfism GERD (gastroesophageal reflux disease) Leiomyoma Frequency of urination HSV-1 (herpes simplex virus 1) infection HTN (hypertension) Kidney calculi Surgical History History of lithotripsy History of surgery Family History Mother No problems noted. Father No problems noted. Social History Housing: Apartment Alcohol intake: current Alcohol intake frequency: holidays/special occasions only Patient Tobacco Use Status: Never used Tobacco e-Cigarette/Vaping Use: Never Used Second Hand Smoke Exposure: No service: No Current occupational status: disabled Cognitive needs: No Hearing needs: No Vision needs: Yes Review of Systems Const All systems reviewed & are unremarkable except as noted in HPI and below Physical Exam Vital Signs: BMI result Body Mass Index 41.8 Constitutional: Patient appears to be in no acute distress, well nourished and well developed. MSK: Elbow extension lag 20 degrees, bilateral. Tender 2 fingerbreadths distal to medial epicondyle, bilateral. Increased pain with resisted wrist flexion. No tenderness on lateral epicondyle or olecranon. No increased pain with resisted wrist extension. No intrinsic hand weakness noted. No atrophy noted. Archie test negative. Carpal compression test negative. Tinel sign negative. Strength is 5/5 in all muscle groups tested. No increased tone noted. Neurological: Neurologic examination of the upper and lower extremities was nonfocal with intact sensation, muscle stretch reflexes and without focal motor deficits . Carrillo?s negative bilaterally. Gait is non-antalgic without loss of balance. Office Procedures Tendon Injection Tendon Injection Details: Common flexor tendon injection, bilateral Consent obtained. Patient sits with supported elbow on the table at right angle and forearm supinated. Tender area along common flexor tendon slightly distal to medial epicondyle identified. Area prepped in sterile manner. 27 gauge 0.5 in. needle inserted at tender area, injecting solution containing 10 mg Kenalog and 0.75 mL 1% lidocaine. Same procedure repeated on left. Patient tolerated procedure well without complications. [id number] Tendon Origin/Insertion Injection (Modifier 50 bilateral) All charges added?: Procedure code (CPT) selection complete Results Reviewed Results Reviewed: I independently reviewed the results of the elbow xray - no acute fracture seen. Loss of joint space. Showed the patient. Date of Service: 06/23/23 Procedure(s): XR elbow LT 2V Accession Number(s): [id number] cc: Lisandro James PA-C~ EXAMINATION: XR ELBOW, BILATERAL CLINICAL INFORMATION: Reason for Exam M25.521 - Pain in elbow COMPARISON: Elbow radiographs 11/22/2016 TECHNIQUE: Three views of the lateral elbows. FINDINGS: No acute fracture. There are chronic-appearing bilateral radial head dislocations, which on the right is similar to remote prior. 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 No joint effusion. No soft tissue abnormality. XR/XR elbow LT 2V IMPRESSION: 1. Chronic-appearing bilateral radial head dislocations, which on the right is similar to remote prior. 2. 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 I reviewed records from the following: PCP Assessment & Plan Assessment & Plan (1) Medial epicondylitis of both elbows: Code(s): M77.01 - Medial epicondylitis, right elbow; M77.02 - Medial epicondylitis, left elbow (2) Osteoarthritis of elbows, bilateral: Code(s): M19.021 - Primary osteoarthritis, right elbow; M19.022 - Primary osteoarthritis, left elbow Qualifiers: Osteoarthritis type: primary Qualified Code(s): M19.021 - Primary osteoarthritis, right elbow; M19.022 - Primary osteoarthritis, left elbow (3) History of dwarfism: Code(s): Z86.39 - Personal history of other endocrine, nutritional and metabolic disease Plan Signs of medial epicondylitis or common flexor tenosynovitis, bilateral. Probably due to chronic extension lag of her elbows. Discussed treatment options including bracing, PT, injection. Patient would like to do injections today. Will put her on counterforce brace. Instructions given on how to wear this. She wanted to have injections today because she is traveling to be per [facility] [place] on 07/31 because her grandfather is ill. She might be there for at least 1 month. Patient advised to call us when she comes back so we can refer her to OT. She was also advised to call us prior to her trip if there is any other concern. Assessment and plan discussed with patient, and patient was agreeable. All questions were answered thoroughly. Allie Vidales MD, YULISSA Board Certified, [place] Board [employer] Physical Medicine and Rehabilitation (ABPMR) Board Certified, [place] Board [employer] Electrodiagnostic Medicine (ABEM) Orders: Orders AMB Injection-Tendon Today M77.01 - Medial epicondylitis, right elbow, M77.02 - Medial epicondylitis, left elbow Coding Level of Care Code New Pt Level 4 (14536) Diagnoses Medial epicondylitis of both elbows M77.01; M77.02 Primary osteoarthritis of both elbows M19.021; M19.022 Osteoarthritis type: primary History of dwarfism Z86.39 CPT Codes Tendon Injection - Tendon Injection 2: [id number] Tendon Origin/Insertion Injection ([id number])
== END 2023-07-21 11:33 | disposition home or self-care (01) ==
PROVIDERS: PCP Physician Assistant; Visit Provider Physical Medicine & Rehabilitation
DX: M77.01 Medial epicondylitis, right elbow (principal); M77.02 Medial epicondylitis, left elbow; M19.021 Primary osteoarthritis, right elbow; M19.022 Primary osteoarthritis, left elbow; Z86.39 Personal history of other endocrine, nutritional and metabolic disease
CPT/HCPCS: 20550; 99203

== ENCOUNTER → 2023-07-21 10:42 | Outpatient (BNVA) | payer OTHER, SELFPAY | PROVIDERS: PCP Physician Assistant; Visit Provider Physical Medicine & Rehabilitation | DX: M77.01 Medial epicondylitis, right elbow (principal); M77.02 Medial epicondylitis, left elbow; M19.021 Primary osteoarthritis, right elbow; M19.022 Primary osteoarthritis, left elbow; Z86.39 Personal history of other endocrine, nutritional and metabolic disease | CPT/HCPCS: 20551; 99202; J3301 ==

== ENCOUNTER 2023-08-11 08:42 | Outpatient (AMB) | payer OTHER, SELFPAY ==
--- NOTE | 2023-08-11 08:44 | A.OFFVIS_ITS ---
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 Accompanied by: Self / Same As Patient Allergies No Known Allergies Allergy (Verified 06/27/23 10:49) Medication List - Last Reconciled 08/11/23 by Aggie Castro MD albuterol sulfate 90 mcg/actuation 1 inh inhalation QID PRN 30 days allopurinol 100 mg PO DAILY drospirenone-ethinyl estradiol 3-0.03 mg 1 tab PO DAILY fluticasone propionate 50 mcg/actuation 1 spray intranasal BID hyoscyamine sulfate 0.125 mg PO QID PRN lisinopril-hydrochlorothiazide 10-12.5 mg 1 tab PO DAILY 30 days loratadine 10 mg PO DAILY 90 days meloxicam 15 mg PO DAILY PRN 15 days miscellaneous medical supply (Blood Pressure Cuff) As directed omeprazole 20 mg PO DAILY polyethylene glycol 3350 (Miralax) 17 grams PO BID pyridoxine (vitamin B6) 100 mg PO DAILY sumatriptan succinate take 1 tab at onset of headache; if no relief may repeat 1 tab after at least 2 hrs; max = 4 tabs/24 hr PO valacyclovir (Valtrex) 1,000 mg PO BID 10 days HPI HPI Comments History of Present Illness Details 08/11/2023--Bernadette is a 38-year-old female wh o presents today to the office for a telehealth follow-up. (Video attempted) She had a renal ultrasound done 07/13/23. I have reviewed the renal ultrasound that reports a 6 mm nonobstructing stone. The patient previously had a 3 mm stone reported on prior ultrasound and is status post ESWL. I have discussed with the patient that there may be persistent fragments present in the left kidney. She denies any kidney pain or blood in the urine. Plan will be to re-evaluate in about 6 months. Will check with a CT at that time. Review of chart: 06/17/23-- s/p Left ESWL in e patient states she has not passsed any stones, She did have pain along the left side about 5 days ago. I will have her use flomax 0.4 mg for 7 days and encouraged increase fluids 03/25/2023? She is followed today for US results, and kidney stones. LV- 03/25/22. The patient states that she was seen in ER recently with abdominal pain and also has had intermittent left flank pain, she feels like the flank pain is due to the kidney stone. I reviewed the ER notes which showed findings was constipation and the patient was given laxative to take which she has not picked up prescribed yet. renal US results from 03/24/2023 revealed nonobstructive 0.3 cm calculus in the upper pole of the left kidney. No calculi or focal parenchymal lesions. No hydronephrosis. KUB X-ray results from 03/24/2023 revealed nonspecific bowel gas pattern. I have reviewed the renal US past reports showed kidney stones, size ranges from 5 mm to 3 mm. 24-hour urine collection results done on 07/05/22: Urine vol- 840 mL, Urine calcium - 19, Urine oxalate was 22, urine citrate was 170, urine sodium was 158. 08/11/23---PLAN: continue allopurinol 100 mg and vitamin B6 100 mg daily. Follow-up in [address] [facility] Medical History (Updated 07/21/23 @ 11:16 by Allie Vidales MD) History of dwarfism GERD (gastroesophageal reflux disease) Leiomyoma Frequency of urination HSV-1 (herpes simplex virus 1) infection HTN (hypertension) Kidney calculi Surgical History History of lithotripsy History of surgery Family History Mother No problems noted. Father No problems noted. Social History Housing: Apartment Alcohol intake: current Alcohol intake frequency: holidays/special occasions only Patient Tobacco Use Status: Never used Tobacco e-Cigarette/Vaping Use: Never Used Second Hand Smoke Exposure: No service: No Current occupational status: disabled Cognitive needs: No Hearing needs: No Vision needs: Yes Review of Systems Const All systems reviewed & are unremarkable except as noted in HPI and below Reports no additional complaints Eyes Reports no additional complaints ENT Denies neck pain Resp Denies cough GI Denies constipation Reports no additional complaints Musc Reports no additional complaints and Denies neck pain Skin/Breast Denies rash and Denies unusual bruising Neuro Reports no additional complaints Psych Reports no additional complaints Endo Reports no additional complaints Mohit/Lymph Reports no additional complaints Aller/Immun Reports no additional complaints Results Reviewed Results Reviewed: Date of Service: 07/13/23 EXAMINATION: US RETROPERITONEAL LIMITED (RENAL ONLY) CLINICAL INFORMATION: Calculus of kidney. Status post left ESWL May 2023. COMPARISON: X-ray abdomen 05/11/2023 and 03/24/2023. Renal ultrasound 03/24/2023 and 03/07/2023. CT abdomen and pelvis with contrast 08/03/2020. TECHNIQUE: Real-time imaging of the kidneys. FINDINGS: RIGHT KIDNEY: 9.7 x 3.8 x 5.4 cm (SAG x AP x TRV). The kidney is normal in size, contour, and echogenicity. Renal cortical thickness is normal. No calculi or focal parenchymal lesions. No hydronephrosis. LEFT KIDNEY: 9.2 x 4.2 x 4 cm (SAG x AP x TRV). The kidney is normal in size, contour, and echogenicity. Renal cortical thickness is normal. 6 mm nonobstructing upper pole calculus. No hydronephrosis. IMPRESSION: 6 mm nonobstructing left renal calculus. No right-sided renal calculi. No hydronephrosis of either kidney. Assessment & Plan Assessment & Plan (1) Kidney stone on left side: Code(s): N20.0 - Calculus of kidney Plan continue allopurinol 100 mg and vitamin B6 100 mg daily. Follow-up in [address] prior[address] Medications: Refilled pyridoxine (vitamin B6) 100 mg PO DAILY 90 tabs 2RF N13.2 - Hydronephrosis with renal and ureteral calculous obstruction, N20.0 - Calculus of kidney allopurinol 100 mg PO DAILY 90 tabs 2RF N20.0 - Calculus of kidney Telehealth Telehealth Location of provider rendering services: practice address Location of patient: address on file Patient Identification confirmed using: Name, : Yes Telehealth method: voice only Patient verbally consented to treatment: Yes Patient verbally consented to billing insurance company: Yes Patient informed of any privacy concerns related to visit: Yes Minutes spent on Phone/Video with Pt.: 15 Coding Level of Care Code Tele Est Pt Level 3 (90695) Diagnoses Kidney stone on left side N20.0
== END 2023-08-11 09:23 | disposition home or self-care (01) ==
LOC: HO.HUSH 08:43
PROVIDERS: PCP Physician Assistant; Visit Provider Urology
DX: N20.0 Calculus of kidney (principal)
CPT/HCPCS: 99442

== ENCOUNTER → 2023-08-11 08:42 | Outpatient (BNVA) | payer OTHER, SELFPAY | PROVIDERS: PCP Physician Assistant; Visit Provider Urology ==

== ENCOUNTER 2023-11-15 09:30 | Outpatient (AMB) | payer OTHER, SELFPAY ==
[2023-11-15 09:44] VITALS: BP 112/62; BMI 43.3
--- NOTE | 2023-11-15 09:44 | MHC.OFFVIS ---
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 Doing well with no concerns. Reports she is started her menses. Has some frequency of urination, admits to drinking soda daily. She tries to stays active with exercise. Not eating as healthy as she'd like to. She reports itching at the time of her menstrual flow often will not wear a pad so she does not think it is a pad irritation. She likes to maintain the use of control due to having frequent vacations and will tweak or medication so that she has not bleeding while she is away. History of hypertension and on medication, history of headaches 2 times a week, uses sumatriptan. Currently is sexually active. She denies vaginal itching and irritation. STI screening offered; she declines. Denies family history of breast, ovarian or colon cancer. Last pap smear 2022, negative. [facility] Medical History (Updated 11/15/23 @ 10:09 by Rossana Brice CNM) History of abnormal cervical Pap smear History of dwarfism GERD (gastroesophageal reflux disease) Leiomyoma Frequency of urination HSV-1 (herpes simplex virus 1) infection HTN (hypertension) Kidney calculi Surgical History History of lithotripsy History of surgery Family History Mother No problems noted. Father No problems noted. Social History Housing: Apartment Alcohol intake: current Alcohol intake frequency: holidays/special occasions only Patient Tobacco Use Status: Never used Tobacco e-Cigarette/Vaping Use: Never Used Second Hand Smoke Exposure: No service: No Current occupational status: disabled Cognitive needs: No Hearing needs: No Vision needs: Yes Female Reproductive History Menstrual Age of Menarche: 14 Date of last menstrual period: 10/11/23 control method: pills Total pregnancies: 0 Date of last pap smear: 11/09/22 (negative) History of abnormal pap smear: Yes (2015 2014 IONA 1) Review of Systems Const All systems reviewed & are unremarkable except as noted in HPI and below Reports as per HPI Eyes Reports no additional complaints ENT Reports no additional complaints Card Reports no additional complaints Resp Reports no additional complaints GI Reports as per HPI and Reports no additional complaints Reports as per HPI Musc Reports no additional complaints Skin/Breast Reports as per HPI Neuro Reports no additional complaints Psych Reports no additional complaints Endo Reports no additional complaints Mohit/Lymph Reports no additional complaints Aller/Immun Reports no additional complaints Physical Exam Vital Signs: Last Vital Signs BP 112/62 11/15/23 09:44 BMI result Body Mass Index 43.3 Const General: cooperative, healthy appearing, no acute distress, well developed and alert Orientation/consciousness: patient oriented x3 HEENT Head: Yes normal to inspection Eyes General: appearance normal, both eyes and all related structures Neck Neck: Yes normal visual inspection Thyroid: Thyroid normal Chest Chest palpation & inspection: normal inspection of the chest and other (no puckering, dimpling, peau de orange, retraction, discharge, masses) Breast/axilla inspection: normal inspection of the breasts Breast/axilla palpation: normal palpation of the breasts Resp Effort & Inspection: normal respiratory effort GI Inspection: Yes normal to inspection Palpation (GI): Soft to palpation Rectal Exam - Female: deferred General: Yes bladder normal to palpation External Female Exam: normal external appearance and normal appearance of the urethra Speculum Exam - Vagina: normal appearance of the vagina, normal palpation, normal vaginal discharge and vaginal bleeding Speculum Exam - Cervix: normal appearance of the cervix and normal palpation Bimanual exam- vagina & uterus: normal bimanual exam, normal palpation, uterine size normal, bladder normal to palpation, normal palpation and non-tender Bimanual Exam- Adnexa, other: no masses OB/external & speculum: vaginal bleeding Skin General skin exam: no rashes or lesions noted Rashes: no rashes Neuro General: patient oriented x3 Cognition (Neuro): normal cognition Extrem General: Yes normal to inspection Psych Attitude: cooperative Thought process: Normal thought process present Results AMB Urinalysis, Automated UA Leukoctes 0 Jeff/uL Last Edit by Alea Njcierra BREANNE on 11/15/23 10:29 UA Nitrite Negative Last Edit by Alea Njcierra Lzi on 11/15/23 10:29 UA Urobilinogen 0 mg/dL Last Edit by Alea Njcierra A on 11/15/23 10:29 UA Protein 1 mg/dL Last Edit by Alea Njcierra Liz on 11/15/23 10:29 UA pH 6 Last Edit by Alea Njcierra A on 11/15/23 10:29 UA Blood 3 Obey/uL Last Edit by Alea Njcierra Liz on 11/15/23 10:29 UA Specific [place] 1.020 Last Edit by Alea Njcierra Liz on 11/15/23 10:29 UA Ketone Negative Last Edit by Alea Njcierra Liz on 11/15/23 10:29 UA Bilirubin 0 mg/dL Last Edit by Alea Njcierra Liz on 11/15/23 10:29 UA Glucose 0 mg/dL Last Edit by Alea Njcierra Liz on 11/15/23 10:29 Assessment & Plan Assessment & Plan (1) Leiomyoma: Comment: 2 fibroids: 1.7 cm, mid body and cervical Code(s): D21.9 - Benign neoplasm of connective and other soft tissue, unspecified Category: Medical (2) Encounter for well woman exam with routine gynecological exam: Code(s): Z01.419 - Encounter for gynecological examination (general) (routine) without abnormal findings Plan Discussed: Current recommendations for pap smears per ASCCP guidelines. Breast awareness and periodic breast exams. Maintain a healthy lifestyle including a well balanced diet and routine exercise. Use condoms for STI and prevention. BV panel obtained to check for any causative factors for irritation, possibly just menstrual cycle changes and the discomfort of being wet may be contributing to her irritation. Reviewed anamaria care, advised cleaned with water only, towel dry, use of cotton underclothes, and loose clothing. Advised to stop drinking soda and hydrate more with water to see if the frequency of urination improves. Urine dip today just revealed blood and protein. Changing control to progesterone only, risk of having more breakthrough bleeding or unscheduled bleeding, observe bleeding patterns and follow up in 2-1/2 months for control follow up. Observe if headaches improve while off estrogen. Patient verbalizes understanding and agrees to the plan of care. She was given opportunity to ask questions and all questions were answered to the best of my ability. 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 This note is constructed using voice recognition software. While every effort has been made to ensure accuracy, emanations analysis technician errors may have been included. Orders: Orders US pelvic and transvaginal Today E63.8 - Other specified nutritional deficiencies AMB Urinalysis Automated Today R35.0 - Frequency of micturition Bacterial Vaginosis Panel Today N89.8 - Other specified noninflammatory disorders of vagina Medications: New norethindrone (contraceptive) (Magda) 0.35 mg PO DAILY 90 days 90 tabs 0RF Discontinued drospirenone-ethinyl estradiol 3-0.03 mg Discontinued Reason: No Longer Medically Relevant 1 tab PO DAILY 84 tabs 2RF Coding Level of Care Code Est Pt Prev Care 18-39y(20029) Diagnoses Leiomyoma D21.9 Encounter for well woman exam with routine gynecological exam Z01.419
== END 2023-11-15 10:39 | disposition home or self-care (01) ==
PROVIDERS: PCP Physician Assistant; Visit Provider Advanced Practice Midwife
DX: Z01.419 Encounter for gynecological examination (general) (routine) without abnormal findings (principal); D21.9 Benign neoplasm of connective and other soft tissue, unspecified; R35.0 Frequency of micturition
CPT/HCPCS: 99395

== ENCOUNTER 2023-11-15 09:30 | Outpatient (REF) | payer OTHER, SELFPAY ==
[2023-11-16 10:53] LABS: Bacterial Vaginosis PCR NEGATIVE (Negative); Candida Group PCR NOT DETECTED (Not Detect); Candida glab krusei PCR NOT DETECTED (Not Detect); Trichomonas vaginalis PCR NOT DETECTED (Not Detect)
== END 2023-11-15 09:31 | disposition home or self-care (01) ==
LOC: HO.LNP 09:30
PROVIDERS: PCP Physician Assistant; Visit Provider Advanced Practice Midwife
DX: Z01.419 Encounter for gynecological examination (general) (routine) without abnormal findings (principal); N89.8 Other specified noninflammatory disorders of vagina; D21.9 Benign neoplasm of connective and other soft tissue, unspecified; E63.8 Other specified nutritional deficiencies; R35.0 Frequency of micturition
CPT/HCPCS: 0352U; 81003

== ENCOUNTER 2023-11-30 10:27 | Outpatient (REF) | payer OTHER, SELFPAY ==
--- NOTE | ~2023-11-30 | US_ITS ---
EXAMINATION: US PELVIS COMPLETE CLINICAL INFORMATION: Follow-up uterine fibroids; abnormal Pap smear; the last menstrual period was on 11/15/2023. COMPARISON: None. TECHNIQUE: Transabdominal and transvaginal imaging were performed. FINDINGS: The uterus is of normal size and echogenicity, measuring 6.9 x 3.5 x 4.2 cm. The uterus is retroverted and retroflexed. A regular, homogeneous endometrium is identified measuring 0.3 cm. Within the cervix, and 1.5 x 1.1 x 1.2 cm hypoechoic, irregular marginated focus is seen, with peripheral color Doppler flow FIBROIDS: There is 1 fibroid seen. 1. Location: Posterior upper body, subserosal. Size: 0.8 x 0.7 x 0.9 cm. Fibroid characteristics: Hypoechoic. Both ovaries are of normal size and echogenicity. The right ovary measures 3.7 x 1.9 x 1.6 cm for a volume of 6.0 mL. The right ovary contains a 2.1 cm dominant anechoic, simple follicle. This requires no imaging follow-up. The left ovary measures 1.9 x 1.3 x 1.5 cm for a volume of 2.2 mL. There is no pelvic free fluid. No adnexal mass is seen. US/US pelvic and transvaginal IMPRESSION: 1. A 9 mm uterine fibroid is seen, as detailed. 2. A 1.5 cm endocervical hypoechoic lesion is seen. This shows slight peripheral color Doppler flow. This could represent a complex nabothian cyst or possibly a solid lesion. Gynecology evaluation management is recommended. Recommend correlation with the patient's most recent Pap smear.
== END 2023-11-30 10:28 | disposition home or self-care (01) ==
LOC: HO.US 10:27
PROVIDERS: PCP Physician Assistant; Visit Provider Advanced Practice Midwife
DX: E63.8 Other specified nutritional deficiencies (principal)
CPT/HCPCS: 76830; 76856

== ENCOUNTER 2023-12-26 10:26 | Outpatient (AMB) | payer OTHER, SELFPAY ==
--- NOTE | 2023-12-26 10:28 | A.OFFPC_ITS ---
Vital Signs 12/26/23 10:29 Height 4 ft Weight 142 lb 4 oz BMI 43.4 BP 122/82 Blood Pressure Location Lt brachial Position Sitting Pulse 88 Pulse Source Pulse Oximeter Pulse Oximetry (%) 97 Oxygen Delivery Method Room Air Intake Visit Reasons: f/u HTN Utility Manager Required: No Accompanied by: Self / Same As Patient Allergies No Known Allergies Allergy (Verified 12/26/23 10:53) Medication List - Last Reconciled 12/26/23 by Lisandro James PA-C albuterol sulfate 90 mcg/actuation 1 inh inhalation QID PRN 30 days allopurinol 100 mg PO DAILY fluticasone propionate 50 mcg/actuation 1 spray intranasal BID hyoscyamine sulfate 0.125 mg PO QID PRN lisinopril-hydrochlorothiazide 10-12.5 mg 1 tab PO DAILY 30 days loratadine 10 mg PO DAILY 90 days meloxicam 15 mg PO DAILY PRN 15 days miscellaneous medical supply (Blood Pressure Cuff) As directed norethindrone (contraceptive) (Magda) 0.35 mg PO DAILY 90 days omeprazole 20 mg PO DAILY pyridoxine (vitamin B6) 100 mg PO DAILY sumatriptan succinate take 1 tab at onset of headache; if no relief may repeat 1 tab after at least 2 hrs; max = 4 tabs/24 hr PO valacyclovir (Valtrex) 1,000 mg PO BID 10 days Tobacco use date assessed: 06/27/23 Dental Screening Dental Screen Date: 06/27/23 HPI f/u HTN HPI Details Patient is a 38-year-old female here today a follow-up visit. ? Patient's past medical history significant for nephrolithiasis, hypertension , obesity,. Concern--> reports having pain in both elbows worse with movements. She denies any falls or trauma to her elbows. Recent x-ray showing--> Chronic-appearing bilateral radial head dislocations, which on the right is similar to remote prior. 2. 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 She has followed up with Orthopedics specialty in received 2 cortisone injections though were not helpful on reducing her pain. She is now willing to to try occupational therapy Hypertension:? Blood pressure today in office acceptable. Patient continues on lisinopril hydrochlorothiazide with good effect. .. Migraines: Reports migraines are still evident in on nearly every day basis. She does use sumatriptan an as needed basis. She was told to follow up with Neurology as she continues to headaches even when her blood pressure is now under control. PLAN: Will refer to Neurology for further evaluation. Will start vitamin B2 and magnesium. .. Nephrolithiasis: Seeing Dr Sanabria --she is due for removal of a kidney stone in near future. [facility] Medical History (Updated 12/26/23 @ 11:05 by Lisandro James PA-C) History of abnormal cervical Pap smear History of dwarfism GERD (gastroesophageal reflux disease) Leiomyoma Frequency of urination HSV-1 (herpes simplex virus 1) infection HTN (hypertension) Kidney calculi Surgical History History of lithotripsy History of surgery Family History Mother No problems noted. Father No problems noted. Social History Housing: Apartment Alcohol intake: current Alcohol intake frequency: holidays/special occasions only Patient Tobacco Use Status: Never used Tobacco e-Cigarette/Vaping Use: Never Used Second Hand Smoke Exposure: No service: No Current occupational status: disabled Cognitive needs: No Hearing needs: No Vision needs: Yes Female Reproductive History Menstrual Age of Menarche: 14 Questionnaire Thrive Questionnaire Date Thrive assessed: 06/27/23 WILLARD-7 AMB Questionnaire WILLARD-7 Date WILLARD - 7 assessed: 06/27/23 Source: Developed by Drs. Vinod Love, Mica Baez, Jarad Apple and colleagues, with an educational jose from [employer]). Review of Systems Const Reports headache(s) Eyes Denies loss of vision ENT Denies vertigo, Denies dizziness, Reports headache(s) and Denies sore throat Card Denies chest pain, Denies leg edema and Denies lightheadedness Resp Denies cough, Denies hemoptysis and Denies wheezing GI Denies abdominal pain, Denies melena, Denies constipation, Denies diarrhea and Denies vomiting Denies urinary frequency, Denies dysuria and Denies urinary urgency Musc Denies arthralgias, Denies joint swelling, Denies numbness and Denies tingling Neuro Denies Abnormal speech present, Denies behavioral changes, Denies vertigo, Denies dizziness, Reports headache(s), Denies loss of vision, Denies memory loss, Denies numbness and Denies tingling Psych Denies anxiety, Denies behavioral changes, Denies depression, Denies memory loss and Denies panic attacks Mohit/Lymph Denies easy bleeding and Denies easy bruising Aller/Immun Denies wheezing Physical exam (Primary Care) Vital Signs: Last Vital Signs Pulse 88 12/26/23 10:29 BP 122/82 12/26/23 10:29 Pulse Ox 97 12/26/23 10:29 Oxygen Delivery Method Room Air 12/26/23 10:29 BMI result Body Mass Index 43.4 Tobacco/Smoking Status: Tobacco use Status Tobacco use date assessed 06/27/23 12/26/23 10:30 Patient Tobacco Use Status Never used Tobacco 12/26/23 10:30 e-Cigarette/Vaping Use Never Used 12/26/23 10:30 Thrive Assessment: Date of Thrive Assessment Date Thrive assessed 06/27/23 12/26/23 10:30 Const General: healthy appearing, no acute distress, alert and awake Nutritional Appearance: well nourished Orientation/consciousness: oriented to person, oriented to place and oriented to time HENMT Ears: TM's normal bilaterally General nose exam: Normal nasal mucous membranes and turbinates present Eyes Conjunctivae: conjunctivae normal Sclerae: sclerae normal Pupils: Equal, round and reactive pupils present Neck Neck: Yes no lymphadenopathy and Yes no JVD Thyroid: Thyroid normal Carotids: no bruits Resp Effort & Inspection: normal respiratory effort and not tachypneic Auscultation: no crackles, no rales, no rhonchi and no wheezes Cardio Rate: regular rate Rhythm: regular rhythm Heart sounds: no murmurs and normal S1 and S2 GI Palpation (GI): Soft to palpation, nontender, no hepatomegaly and no splenomegaly Auscultation: normal bowel sounds Skin General skin exam: no rashes or lesions noted and dry skin Neuro General: oriented to person, oriented to place and oriented to time Cranial nerves: Yes Equal, round and reactive pupils present Speech: No Abnormal speech present Gait exam (Neuro): Normal gait present Motor exam (neuro): no tremor noted Extrem Right upper extremity: full ROM Left upper extremity: full ROM Right lower extremity: full ROM; no edema Left lower extremity: full ROM; no edema Psych Mental Status: mental status grossly normal Speech and movement: Normal speech and movement present Affect: normal affect Attitude: cooperative Thought process: Normal thought process present Assessment and Plan Assessment & Plan (1) HTN (hypertension): Code(s): I10 - Essential (primary) hypertension Qualifiers: Hypertension type: primary hypertension Qualified Code(s): I10 - Essential (primary) hypertension Plan: Patient's blood pressure acceptable today in office. Will continue her current dose of anti hypertensive medication with goal blood pressure to remain below 140/90 (2) Osteoarthritis of elbows, bilateral: Code(s): M19.021 - Primary osteoarthritis, right elbow; M19.022 - Primary osteoarthritis, left elbow Qualifiers: Osteoarthritis type: primary Qualified Code(s): M19.021 - Primary osteoarthritis, right elbow; M19.022 - Primary osteoarthritis, left elbow Plan: Noted to have bilateral elbow moderate arthritis. Does report meloxicam is helpful as needed. She has followed up with Orthopedic and gotten injections in her elbows though have not been effective. She is willing to try occupational therapy. (3) Migraines: Code(s): G43.909 - Migraine, unspecified, not intractable, without status migrainosus Qualifiers: Intractability: not intractable Migraine type: other Status migrainosus presence: without status migrainosus Qualified Code(s): G43.809 - Other migraine, not intractable, without status migrainosus Plan: Patient reports continues to frequent migraines. Has change her contraception though has not made much difference. Will supply patient with vitamin B2 and magnesium for her chronic migraines. Will refer to Neurology for further evaluation. Will try for MRI to evaluate for any intracranial pathology. (4) Paresthesia of hand, bilateral: Code(s): R20.2 - Paresthesia of skin Plan: Will send for EMG testing to evaluate for median or cubital tunnel nerve neuropathy. Orders: Orders OT Evaluation and Treatment Today M77.01 - Medial epicondylitis, right elbow, M77.02 - Medial epicondylitis, left elbow Complete Blood Count no Diff Today J45.909 - Unspecified asthma, uncomplicated Microalbumin, Random (w Creat) Today I10 - Essential (primary) hypertension Comprehensive Bradford. Panel Fast Today Z13.1 - Encounter for screening for diabetes mellitus MR head/brain wo con Today G43.809 - Other migraine, not intractable, without status migrainosus NE electromyogram (EMG) Today R20.2 - Paresthesia of skin Referrals Neurology Referral G43.809 - Other migraine, not intractable, without status migrainosus Medications: New riboflavin (vitamin B2) 50 mg PO DAILY 30 tabs 3RF 30 days G43.809 - Other migraine, not intractable, without status migrainosus, R51.9 - Headache, unspecified diclofenac sodium 1% apply to single elbow, wrist or hand; for hand includes palm/fingers/back of hand 2 grams topical QID 100 grams 0RF 30 days M19.021 - Primary osteoarthritis, right elbow, M19.022 - Primary osteoarthritis, left elbow magnesium oxide 250 mg PO BID 60 tabs 3RF 30 days G43.809 - Other migraine, not intractable, without status migrainosus, R51.9 - Headache, unspecified Refilled meloxicam 15 mg PO DAILY PRN 15 tabs 3RF pain 15 days M25.521 - Pain in right elbow, M25.522 - Pain in left elbow sumatriptan succinate take 1 tab at onset of headache; if no relief may repeat 1 tab after at least 2 hrs; max = 4 tabs/24 hr PO 10 tabs 3RF G43.809 - Other migraine, not intractable, without status migrainosus Coding Level of Care Code Est Pt Level 4 (43640) Diagnoses Primary hypertension I10 Hypertension type: primary hypertension Primary osteoarthritis of both elbows M19.021; M19.022 Osteoarthritis type: primary Other migraine without status migrainosus, not intractable G43.809 Intractability: not intractable Migraine type: other Status migrainosus presence: without status migrainosus Paresthesia of hand, bilateral R20.2
[2023-12-26 10:29] VITALS: BP 122/82; PULSE 88; O2SAT 97; BMI 43.4
== END 2023-12-26 11:05 | disposition home or self-care (01) ==
PROVIDERS: PCP Physician Assistant; Visit Provider Physician Assistant
DX: I10 Essential (primary) hypertension (principal); M19.021 Primary osteoarthritis, right elbow; M19.022 Primary osteoarthritis, left elbow; G43.809 Other migraine, not intractable, without status migrainosus; R20.2 Paresthesia of skin
CPT/HCPCS: 99214

== ENCOUNTER 2024-01-17 09:27 | Outpatient (REF) | payer OTHER, SELFPAY ==
--- NOTE | 2024-01-17 09:30 | EMG_ITS ---
Bilateral median and ulnar motor and sensory studies were performed. Bilateral radial sensory studies were performed. Bilateral median and lateral antecubital brachial sensory studies were performed and paraspinal muscles were tested with a needle. IMPRESSION: This is an unremarkable study with no evidence of entrapment neuropathy, plexopathy, or radiculopathy. The only finding was bilateral Saeed Kang anastomosis, which is a normal variant. MD TIMOTHY De La Garza/TORY / [id number]
== END 2024-01-17 09:28 | disposition home or self-care (01) ==
LOC: HO.NEURO 09:27
PROVIDERS: PCP Physician Assistant; Visit Provider Physician Assistant
DX: R20.2 Paresthesia of skin (principal)
CPT/HCPCS: 95886; 95913

== ENCOUNTER 2024-01-23 11:00 | Outpatient (RCR) | payer OTHER, SELFPAY ==
--- NOTE | 2023-12-30 15:37 | MHC.OT.EP ---
[address] [phone] Occupational Therapy Plan of Care Patient Name: Bernadette Rodriguez Date of Evaluation: 12/30/23 Diagnosis: Bilateral elbow pain Pain Location: R 6/ 10 at rest constant 10/10 w/ use 2/10 L Intermittent pain 8/10 w/ use MEDIAL AND LATERAL SIDES OF B ELBOWS Pain Score: 6 Pain Scale Used: Numeric (0 - 10) Aggravating Factors: movement ; pt denies repetitive use or excessive gripping & over the head reaching Alleviating Factors: resting Assessment: Pt is a 38 yr. old female who reports pain in B UE's and elbows (lateral and medial ) over the past year. She saw the MD in July who gave her cortisone shots in B lateral epicondyles and pt reports minimal change in status and reports the medial pain has increased since July. She met w/ the PA and they discussed options ; and pt agreed to therapy. Pt is disabled and lives alone in an apartment in [facility]. She denies heavy lifting and repetitive gripping. She has been referred to skilled OT therapy for decreased pain, increased strength, and increased functional use of her B UE's Pt presents w/ STR along B ECRBs and Distal triceps; She has weak grasp and power transformer repairer measurements. She would benefit from ergonomics, addressing postural deficits, stretching, and strengthening her B UE's Frequency and Duration: The patient will be seen 2xs a week for 4 weeks Short Term Goals: Pt will be complaint w/ her HEP Pt will report being complaint w/use of modalities to decrease pain cold/ hot Increase R Basket Person strength 3lbs (10 lbs) pain free Alf Goals: Pt will report using her R UE to carry a grocery bag without pain Pt 's will gain 6lbs of R power transformer repairer strength (16lbs) Pt will gain 5lbs of L hand power transformer repairer (10lbs) Treatment Plan: Therapeutic Exercise Therapeutic Activity Home Exercise Program Splinting Neuro Re-ed Patient Education Desensitization/Sensory Re-ed Edema Control ADL Training Ultrasound NMES Iontophoresis Paraffin Fluidotherapy MHP Cold Packs Joint Mobilization Soft Tissue Mobilization Kinesiotaping Other (see comments) Electronically Signed By: Deborah Martinez OTR/L Please Sign and return to therapist. Thank you once again for your referral.
== END 2024-03-28 16:03 | disposition home or self-care (01) ==
LOC: HO.OT 11:00
PROVIDERS: PCP Physician Assistant; Visit Provider Physician Assistant
DX: M77.01 Medial epicondylitis, right elbow (principal); M77.02 Medial epicondylitis, left elbow
CPT/HCPCS: 97033; 97035; 97110; 97140; 97166; 97535

== ENCOUNTER 2024-01-31 10:28 | Outpatient (AMB) | payer OTHER, SELFPAY ==
[2024-01-31 10:29] VITALS: BP 110/76; BMI 43.3
--- NOTE | 2024-01-31 10:29 | MHC.OFFVIS ---
Vital Signs 01/31/24 10:29 Height 4 ft Weight 142 lb BMI 43.3 BP 110/76 Intake Visit Reasons: /US follow up House Wrecker: House Wrecker Present Allergies No Known Allergies Allergy (Verified 01/31/24 10:29) Is last menstrual period known: Yes (spotting) Last menstrual period: 01/30/24 HPI Comments Details: Patient is here today for a follow up on her control and ultrasound findings. History of HTN, migraines, and fibroid. She reports doing well on the Vanesa, has a few days of breakthrough bleeding. Reports taking her pill on time. Currently not sexually active. Does not want to continue doing different controls and prefers to have a tubal ligation, is not planning to have children. She reports occasional pain on the right lower pelvic area. Tearful discussing her health concerns today as she has multiple testing scheduled and other issues that she is concerned about. [facility] Medical History History of abnormal cervical Pap smear History of dwarfism GERD (gastroesophageal reflux disease) Leiomyoma Frequency of urination HSV-1 (herpes simplex virus 1) infection HTN (hypertension) Kidney calculi Surgical History History of lithotripsy History of surgery Family History Mother No problems noted. Father No problems noted. Social History Housing: Apartment Alcohol intake: current Alcohol intake frequency: holidays/special occasions only Patient Tobacco Use Status: Never used Tobacco e-Cigarette/Vaping Use: Never Used Second Hand Smoke Exposure: No service: No Current occupational status: disabled Cognitive needs: No Hearing needs: No Vision needs: Yes Female Reproductive History Menstrual Age of Menarche: 14 Date of last menstrual period: 01/30/24 Review of Systems Const All systems reviewed & are unremarkable except as noted in HPI and below Endo Reports no additional complaints Physical Exam Vital Signs: Last Vital Signs BP 110/76 01/31/24 10:29 BMI result Body Mass Index 43.3 Const Other: Tearful discussing her health concerns. General: cooperative, healthy appearing and no acute distress Psych Appearance: well kempt Attitude: cooperative Thought process: Normal thought process present Results Reviewed Results Reviewed: [address] [address] Ultrasound Report Signed Patient: Bernadette Rodriguez MR#: [id number] : 1985 Acct:[id number] Age/Sex: 38 / F ADM Date: 11/30/23 Loc: .[place] Attending Dr: Rossana Brice CNM Ordering Physician: Rossana Brice CNM Date of Service: 11/30/23 Procedure(s): US pelvic and transvaginal Accession Number(s): [id number] cc: Lisandro James PA-C; Rossana Brice CNM~ EXAMINATION: US PELVIS COMPLETE CLINICAL INFORMATION: Follow-up uterine fibroids; abnormal Pap smear; the last menstrual period was on 11/15/2023. COMPARISON: None. TECHNIQUE: Transabdominal and transvaginal imaging were performed. FINDINGS: The uterus is of normal size and echogenicity, measuring 6.9 x 3.5 x 4.2 cm. The uterus is retroverted and retroflexed. A regular, homogeneous endometrium is identified measuring 0.3 cm. Within the cervix, and 1.5 x 1.1 x 1.2 cm hypoechoic, irregular marginated focus is seen, with peripheral color Doppler flow FIBROIDS: There is 1 fibroid seen. 1. Location: Posterior upper body, subserosal. Size: 0.8 x 0.7 x 0.9 cm. Fibroid characteristics: Hypoechoic. Both ovaries are of normal size and echogenicity. The right ovary measures 3.7 x 1.9 x 1.6 cm for a volume of 6.0 mL. The right ovary contains a 2.1 cm dominant anechoic, simple follicle. This requires no imaging follow-up. The left ovary measures 1.9 x 1.3 x 1.5 cm for a volume of 2.2 mL. There is no pelvic free fluid. No adnexal mass is seen. US/US pelvic and transvaginal IMPRESSION: 1. A 9 mm uterine fibroid is seen, as detailed. 2. A 1.5 cm endocervical hypoechoic lesion is seen. This shows slight peripheral color Doppler flow. This could represent a complex nabothian cyst or possibly a solid lesion. Gynecology evaluation management is recommended. Recommend correlation with the patient's most recent Pap smear. Dictated By: Gigi Alfaro MD Signed By: <Electronically signed by Gigi Alfaro MD in OV> 12/27/23 1625 DD/ 1106 TD/TT: Personal Care Home Administrator: BARBARA Assessment & Plan Assessment & Plan (1) Leiomyoma: Comment: 2 fibroids: 1.7 cm, mid body and cervical Code(s): D21.9 - Benign neoplasm of connective and other soft tissue, unspecified Category: Medical (2) Lesion of cervix: Code(s): N88.9 - Noninflammatory disorder of cervix uteri, unspecified (3) Encounter to discuss test results: Code(s): Z71.2 - Person consulting for explanation of examination or test findings (4) Surveillance for control, oral contraceptives: Code(s): Z30.41 - Encounter for surveillance of contraceptive pills Plan Discussed: Use of OCPs, desires to continue, interested in a tubal ligation. Ultrasound findings-cervical findings, fibroid, ovarian cyst. Counseled re: Leiomyoma: common pelvic neoplasm. Differential diagnosis-may include but not limited to- leiomyosarcoma which is a rare uterine sarcoma 3-7/100,000, difficult to distinguish from fibroids on ultrasound from uterine sarcoma's. Unlikely any single test will have a highly positive predictive value. Hysterectomy is not recommended for sole purpose of excluding malignant neoplasm. Consult for surgical exploration, medical treatment, other treatments, verses expectant management, pros and cons, risks and benefits. Expectant management follow up yearly for stability. Report any AUB. Pelvic pressure, bloating, or pain. Referral to MD if indicated for level of care if indicated. Consult with MD regarding endocervical lesion findings, and to discuss tubal ligation. Rx sent in for control. Advised to follow up sooner than her annual if any concerns with pill use. All of her questions and concerns were addressed to the best of my ability and shared decision making. She is agreeable to the plan of care. This note is constructed using voice recognition software. While every effort has been made to ensure accuracy, cooker tender errors may have been included. Medications: Refilled norethindrone (contraceptive) (Magda) 0.35 mg PO DAILY 90 days 90 tabs 3RF Coding Level of Care Code Est Pt Level 3 (94499) Diagnoses Leiomyoma D21.9 Lesion of cervix N88.9 Encounter to discuss test results Z71.2 Surveillance for control, oral contraceptives Z30.41
== END 2024-01-31 11:05 | disposition home or self-care (01) ==
PROVIDERS: PCP Physician Assistant; Visit Provider Advanced Practice Midwife
DX: D21.9 Benign neoplasm of connective and other soft tissue, unspecified (principal); N88.9 Noninflammatory disorder of cervix uteri, unspecified; Z71.2 Person consulting for explanation of examination or test findings; Z30.41 Encounter for surveillance of contraceptive pills
CPT/HCPCS: 99213

== ENCOUNTER → 2024-01-31 10:28 | Outpatient (BNVA) | payer OTHER, SELFPAY | PROVIDERS: PCP Physician Assistant; Visit Provider Advanced Practice Midwife | DX: Z30.41 Encounter for surveillance of contraceptive pills (principal); Z71.2 Person consulting for explanation of examination or test findings; N88.9 Noninflammatory disorder of cervix uteri, unspecified; D21.9 Benign neoplasm of connective and other soft tissue, unspecified | CPT/HCPCS: 99212 ==

== ENCOUNTER 2024-02-13 09:26 | Outpatient (REF) | payer OTHER, SELFPAY ==
--- NOTE | ~2024-02-13 | CT_ITS ---
EXAMINATION: CT ABDOMEN AND PELVIS WITHOUT CONTRAST CLINICAL INFORMATION: Calculus of kidney. COMPARISON: 07/26/2020. TECHNIQUE: Multidetector volumetric imaging was performed from the superior aspect of the liver through the pubic symphysis. Sagittal and coronal reformatted images were obtained on the technologist's workstation. This CT examination was performed using dose optimization techniques as appropriate, variously including the following: *Automated exposure control *Adjustment of mA and/or kV according to patient size (this includes techniques or standardized protocols for targeted exams where dose is matched to indication/reason for exam; i.e. extremities or head) *Use of iterative reconstruction technique DLP: 432 mGy-cm FINDINGS: LUNG BASES: The visualized lung bases are clear. Normal heart size. LIVER, GALLBLADDER, AND BILIARY TREE: Unenhanced liver is normal in size, and attenuation. No focal abnormality. The gallbladder is unremarkable with no evidence of radiopaque gallstones, gallbladder wall thickening, or obvious pericholecystic inflammatory changes. PANCREAS: Unremarkable. SPLEEN: Unremarkable. ADRENAL GLANDS: Unremarkable. KIDNEYS AND URETERS: -3 mm nonobstructing calculus mid to superior pole left kidney, with a similar 3 mm inferior pole nonobstructing calculus. -Left kidney otherwise normal. -Right kidney is normal without calculi, mass, or hydronephrosis. -Ureters are nondilated. BLADDER: Unremarkable. GASTROINTESTINAL TRACT: -The stomach is decompressed. It is otherwise normal. -Small bowel is normal in caliber and course and appearance. -Normal appendix present. -Colon is normal in caliber and course without wall thickening or inflammation. No significant diverticular disease is apparent. -Rectum is normal. ABDOMINAL WALL: -Normal. No masses, hernias, or abnormal lymph nodes. LYMPH NODES: -No pathologic lymphadenopathy is present. -There are numerous small mesenteric nodes present throughout the small bowel and large bowel mesentery, nonspecific and presumably reactive/inflammatory in nature. VASCULAR: -Normal. PELVIC VISCERA: Unremarkable. OSSEOUS STRUCTURES: -Intramedullary caroline with transtrochanteric screw right proximal femur. -Minimal degenerative changes throughout the spine. A few scattered Schmorl's nodes present in the superior endplates of T10 and T11. CT/CT abdomen pelvis wo IV con IMPRESSION: 1. No acute findings in the abdomen or pelvis. 2. There are two nonobstructing 3 mm calculi in the left kidney. There are no right renal calculi. There is no hydronephrosis or hydroureter. 3. Additional ancillary findings as discussed in the body of the report. Electronically signed by: Tyree Enciso MD 04/12/2024 11:54 AM [facility]IN
== END 2024-02-13 09:27 | disposition home or self-care (01) ==
LOC: HO.CT 09:26
PROVIDERS: PCP Physician Assistant; Visit Provider Urology
DX: N20.0 Calculus of kidney (principal)
CPT/HCPCS: 74176

== ENCOUNTER → 2024-02-13 09:27 | Outpatient (BNV) | payer OTHER, SELFPAY | PROVIDERS: PCP Physician Assistant; Visit Provider Radiology Diagnostic Radiology | DX: N20.0 Calculus of kidney (principal) | CPT/HCPCS: 74176 ==

== ENCOUNTER 2024-02-23 09:29 | Outpatient (AMB) | payer OTHER, SELFPAY ==
[2024-02-23 09:36] VITALS: BMI 43.1
--- NOTE | 2024-02-23 09:36 | MHC.OFFVIS ---
Vital Signs 02/23/24 09:36 Height 4 ft Weight 141 lb 1.533 oz BMI 43.1 Intake Visit Reasons: Cervical mass lesion/Tubal Consult per [facility] Cream Beater Required: No Information Interpreted: non-clinical & clinical Upper Shaper: Upper Shaper Present (Charo RAYMUNDO) Accompanied by: Self / Same As Patient Allergies No Known Allergies Allergy (Verified 02/23/24 09:56) Is last menstrual period known: Yes Last menstrual period: 11/15/23 Post menopausal: No Patient : No Do you need a note to return to daycare/school/sports/work: Yes (for surgery on tuesday) HPI Comments Details: The patient is referred from Rossana Brice CNM to discuss abnormal findings on ultrasound and family plan . The patient was seen in 11/27 for pelvic pain GC/CT was done negative, you a and urine test was negative. The patient was recently switched to [place] because of premenstrual headaches, since then headaches has resolved. In addition the patient has been complaining over the last year right pelvic pain was on cyclic control pills was switched to daily [place] is amenorrheic and her pelvic pain has resolved. No vaginal bleeding no vaginal discharge no other GI or symptoms, no fever or chills. 11/30/2023 pelvic ultrasound showed the following: FINDINGS: The uterus is of normal size and echogenicity, measuring 6.9 x 3.5 x 4.2 cm. The uterus is retroverted and retroflexed. A regular, homogeneous endometrium is identified measuring 0.3 cm. Within the cervix, and 1.5 x 1.1 x 1.2 cm hypoechoic, irregular marginated focus is seen, with peripheral color Doppler flow FIBROIDS: There is 1 fibroid seen. 1. Location: Posterior upper body, subserosal. Size: 0.8 x 0.7 x 0.9 cm. Fibroid characteristics: Hypoechoic. Both ovaries are of normal size and echogenicity. The right ovary measures 3.7 x 1.9 x 1.6 cm for a volume of 6.0 mL. The right ovary contains a 2.1 cm dominant anechoic, simple follicle. This requires no imaging follow-up. The left ovary measures 1.9 x 1.3 x 1.5 cm for a volume of 2.2 mL. There is no pelvic free fluid. No adnexal mass is seen. [facility] Medical History History of abnormal cervical Pap smear History of dwarfism GERD (gastroesophageal reflux disease) Leiomyoma Frequency of urination HSV-1 (herpes simplex virus 1) infection HTN (hypertension) Kidney calculi Surgical History History of lithotripsy History of surgery Family History Mother No problems noted. Father No problems noted. Social History Housing: Apartment Alcohol intake: current Alcohol intake frequency: holidays/special occasions only Patient Tobacco Use Status: Never used Tobacco e-Cigarette/Vaping Use: Never Used Second Hand Smoke Exposure: No service: No Current occupational status: disabled Cognitive needs: No Hearing needs: No Vision needs: Yes Female Reproductive History Menstrual Age of Menarche: 14 Date of last menstrual period: 11/15/23 control method: pills Total pregnancies: 2 Full term: 2 Review of Systems Const All systems reviewed & are unremarkable except as noted in HPI and below Card Reports as per HPI and Reports no additional complaints Resp Reports as per HPI and Reports no additional complaints GI Reports as per HPI and Reports no additional complaints Reports as per HPI Physical Exam Vital Signs: BMI result Body Mass Index 43.1 Const General: cooperative, healthy appearing and comfortable Resp Effort & Inspection: normal respiratory effort Auscultation: clear to auscultation bilaterally Percussion: percussion normal Cardio Palpation: normal PMI Rate: regular rate Rhythm: regular rhythm Heart sounds: no murmurs and no rubs Peripheral pulses: Peripheral pulses 2+ throughout GI Inspection: Yes normal to inspection Palpation (GI): Soft to palpation, nontender, no guarding, not rigid and No hepatosplenomegaly present Percussion: Yes normal to percussion Auscultation: normal bowel sounds Rectal Exam - Female: deferred General: Yes no CVA tenderness External Female Exam: normal external appearance and normal appearance of the urethra Speculum Exam - Vagina: normal appearance of the vagina, normal palpation, no lesions and no masses Speculum Exam - Cervix: normal appearance of the cervix, normal palpation, no lesions, no masses and nontender Bimanual exam- vagina & uterus: normal bimanual exam, normal palpation, uterine size normal, normal palpation, uterine shape normal, No Cervical tenderness present and non-tender Bimanual Exam- Adnexa, other: normal adnexae Back/Spine/Pelvis Back: no CVA tenderness Results AMB Test Urine AMB Test Urine Negative Last Edit by Charo Lee CMA on 02/23/24 09:59 Assessment & Plan Assessment & Plan (1) Uterine myoma: Code(s): D25.9 - Leiomyoma of uterus, unspecified Category: Medical Plan: Discussed with the patient the findings on pelvic ultrasound & the risk of myosarcoma; discussed with the patient the options of treatment including expectant management versus hysterectomy; the pros and cons, risks benefits of each approach were discussed with the patient including the fact that in cases of myosarcoma, surgical treatment can lead to early diagnosis and positively affects the prognosis; after further discussion, the patient decided to proceed with expectant management. Will repeat pelvic ultrasound periodically. Instructions given to patient to call in case any of the following occurs: pressure symptoms, abnormal uterine bleeding, pelvic pain; and to schedule a 12 months pelvic ultrasound and a follow-up appointment . All questions answered, the patient verbalized understanding and agreed with the plan . (2) Endocervical polyp: Code(s): N84.1 - Polyp of cervix uteri Category: Medical Plan: Discussed with the patient the finding with possibility of endocervical lesion possible polyp, with no evidence of endocervical polyp on pelvic exam, recommended hysteroscopy D&C possible polypectomy/myomectomy. Discussed with the patient the procedure , all benefits and risks including but not limited to inability to complete the procedure , insufficient endometrial tissue for a complete evaluation of the endometrial cavity , bleeding, infection, possible need for blood transfusion with all its risk ( HIV,syphilis, Hepatitis, anaphylaxis shock, others..), injury to bladder, rectum, possible need for laparoscopy/laparotomy or hysterectomy. The patient verbalized understanding and signed the consent. Instructions given the patient to stay NPO after midnight the day prior to the procedure and to take only lisinopril/hydrochlorothiazide the morning of the surgical procedure and to schedule a 2 week postoperative appointment (3) Family planning: Code(s): Z30.09 - Encounter for other general counseling and advice on contraception Category: Social Hx Plan: Discussed with the patient the different options of control including control pills/Nuvaring, Depo Medroxy Progesterone Acetate, IUD ( levonorgestrel, Copper), sterilization. All the pros, cons, risks and benefits of each were discussed with the patient. The patient decided to go stay on chlamydia so a more detailed discussion re: Progestin only pills including mechanism of action, benefits (regular menses, less dysmenorrhea, less risk of ovarian cancer, ...), risks ( DVT, PE, Strokes, IA, increased breast ca, others). Instructions were given to take the pill once daily at the same time. Orders: Orders AMB HCG Urine Test Today Z32.02 - Encounter for test, result negative US pelvic and transvaginal 1 Year D25.9 - Leiomyoma of uterus, unspecified Coding Level of Care Code Est Pt Level 3 (72615) Diagnoses Uterine myoma D25.9 Endocervical polyp N84.1 Family planning Z30.09
== END 2024-02-23 10:41 | disposition home or self-care (01) ==
LOC: HO.HWS 09:29
PROVIDERS: PCP Physician Assistant; Visit Provider Obstetrics & Gynecology
DX: D25.9 Leiomyoma of uterus, unspecified (principal); N84.1 Polyp of cervix uteri; Z30.09 Encounter for other general counseling and advice on contraception; Z32.02 Encounter for pregnancy test, result negative
CPT/HCPCS: 99213

== ENCOUNTER → 2024-02-23 09:29 | Outpatient (BNVA) | payer OTHER, SELFPAY | PROVIDERS: PCP Physician Assistant; Visit Provider Obstetrics & Gynecology | DX: Z30.09 Encounter for other general counseling and advice on contraception (principal); N84.1 Polyp of cervix uteri; D25.9 Leiomyoma of uterus, unspecified | CPT/HCPCS: 81025; 99212 ==

== ENCOUNTER 2024-02-28 12:52 | Outpatient (REF) | payer OTHER, SELFPAY ==
--- NOTE | ~2024-02-28 | MR_ITS ---
EXAMINATION: MR BRAIN WITHOUT CONTRAST CLINICAL INFORMATION: Migraines. COMPARISON: None available. TECHNIQUE: MRI of the brain was obtained using routine sequences without contrast. FINDINGS: No restricted diffusion. No acute intracranial hemorrhage, mass effect, midline shift, hydrocephalus or herniation. Blanchard-white matter differentiation is normal. There is a patchy, 7 mm, nonrestricted hyperintense T2 FLAIR signal within the left frontal deep white matter. Sellar/suprasellar region is normal. Posterior cranial fossa contents demonstrated no signal abnormality or gross mass effect. There is a pneumatized right petrous apex, congenital variant. Flow-void signal within the main cerebral vessels is normal. Craniocervical junction is intact and normal. Prominent palatine tonsils. MR/MR head/brain wo con IMPRESSION: Nonspecific 7 mm T2 FLAIR signal, left frontal deep white matter. Recommend follow-up IV contrast enhanced MRI brain. No acute intracranial hemorrhage or acute stroke/ischemia. Prominent palatine tonsils. Electronically signed by: Nadeem Contreras MD 04/04/2024 08:37 AM EDT
== END 2024-02-28 12:53 | disposition home or self-care (01) ==
LOC: HO.MRI 12:52
PROVIDERS: PCP Physician Assistant; Visit Provider Physician Assistant
DX: G43.809 Other migraine, not intractable, without status migrainosus (principal)
CPT/HCPCS: 70551

== ENCOUNTER → 2024-02-28 12:52 | Outpatient (BNV) | payer OTHER, SELFPAY | PROVIDERS: PCP Physician Assistant; Visit Provider Radiology Diagnostic Radiology | DX: G43.809 Other migraine, not intractable, without status migrainosus (principal) | CPT/HCPCS: 70551 ==

== ENCOUNTER 2024-03-16 06:29 | Day surgery (SDC) | payer OTHER, SELFPAY ==
[2024-03-13 14:15] VITALS: BMI 43.1
--- NOTE | 2024-03-14 13:14 | HO.ANESPROP2 ---
Documented by User: Elda Toussaint NP 03/14/24 13:14 HPI - Anesthesia Eval Consult details Narrative: 38yo F for D&C Hysteroscopy,possible myomectomy,possible polypectomy, PMFSH Active Problems Active Problems: All Active Problems Family planning (Acute) Endocervical polyp (Acute) Uterine myoma (Acute) Paresthesia of hand, bilateral (Acute) Medial epicondylitis of both elbows (Acute) Osteoarthritis of elbows, bilateral (Acute) Asthma (Acute) Migraines (Acute) Pain of both elbows (Acute) Left flank pain (Acute) Frequency of urination (Acute) Acute conjunctivitis, left eye (Acute) Allergic rhinitis (Acute) BPPV (benign paroxysmal positional vertigo) (Acute) Kidney stone on left side (Acute) Obese (Acute) Screening for diabetes mellitus (DM) (Acute) Screening for hypothyroidism (Acute) Annual physical exam (Acute) Nephrolithiasis (Acute) History of dwarfism (Acute) Leiomyoma (Acute) HTN (hypertension) (Acute) HSV-1 (herpes simplex virus 1) infection (Acute) Past Medical History Medical History (Updated 03/13/24 @ 14:13 by Zakia Cuba RN) Migraine BPPV (benign paroxysmal positional vertigo) Asthma Osteoarthritis History of abnormal cervical Pap smear History of dwarfism GERD (gastroesophageal reflux disease) Leiomyoma HSV-1 (herpes simplex virus 1) infection HTN (hypertension) Kidney calculi Family History Family History Mother No problems noted. Father No problems noted. Surgical History Surgical History History of lithotripsy History of surgery Social History Social History Housing: Apartment Alcohol intake: current Alcohol intake frequency: does not drink Patient Tobacco Use Status: Never used Tobacco e-Cigarette/Vaping Use: Never Used Second Hand Smoke Exposure: No service: No Current occupational status: disabled Cognitive needs: No Hearing needs: No Vision needs: Yes Meds Allergies Allergy/AdvReac Type Severity Reaction Status Date / Time No Known Allergies Allergy Verified 02/23/24 09:56 Exam Height,Weight and Vital Signs: Height 4 ft Weight 64 kg Assessment and Plan Assessment Anesthesia Assessment: Chart Reviewed Documented by User: Walter Mullen MD 03/16/24 08:42 PMFSH Past Medical History Medical History (Updated 03/13/24 @ 14:13 by Zakia Cuba RN) Migraine BPPV (benign paroxysmal positional vertigo) Asthma Osteoarthritis History of abnormal cervical Pap smear History of dwarfism GERD (gastroesophageal reflux disease) Leiomyoma HSV-1 (herpes simplex virus 1) infection HTN (hypertension) Kidney calculi Patient : No Family History Family History Mother No problems noted. Father No problems noted. Family history of problems with anesthesia: No Surgical History Surgical History History of lithotripsy History of surgery History of Problems with Anesthesia: No Social History Social History Housing: Apartment Alcohol intake: current Alcohol intake frequency: does not drink Patient Tobacco Use Status: Never used Tobacco e-Cigarette/Vaping Use: Never Used Second Hand Smoke Exposure: No service: No Current occupational status: disabled Cognitive needs: No Hearing needs: No Vision needs: Yes Meds Allergies Allergy/AdvReac Type Severity Reaction Status Date / Time No Known Allergies Allergy Verified 02/23/24 09:56 Exam Airway Mallampati Class: II TM Dist: <=3cm Neck ROM: Full Heart: ok Lungs: ok Assessment and Plan Assessment Anesthesia Assessment: Anesthesia Plan Discussed Final Anesthetic Review Family History of Problems with Anesthesia: No History of Problems with Anesthesia: No NPO: Yes ASA Class: II Final Preanesthetic Review: No Changes in Pt Med Stat, Meds/Allgs Chart Reviewed, Consent Obtained/Reviewed and Anes Risks/Benef Reviewed Patient Risk: Intermediate Procedure Risk: Low Anesthetic Plan Anesthetic Plan: GA and Agree w/ Assess. and Plan Disposition: Standard PACU
[2024-03-16 06:36] VITALS: BP 156/83; PULSE 82; RESP 18; TEMP 36.9; O2SAT 96; BMI 43.9
[2024-03-16 06:48] LABS: UPreg QC Valid YES; Urine Pregnancy NEGATIVE (NEGATIVE)
[2024-03-16] MEDS: Lactated Ringers 1,000 ML 100 ML IVCONT (07:04)
--- NOTE | 2024-03-16 07:32 | MHC.SHP ---
Pre-Procedural Eval Section A - 24 Hr Update-Section A only Date of Service: 03/16/24 The patient is an INPATIENT: No Changes since office visit: No Cold of Flu in the past 2 weeks, No New Medical Problems, No Changes in Medication and No Patient answered all questions The patient has been examined within 24 hours of the surgical procedure. The History & Physical has been completed within 30 days and I have reviewed it.: Yes Section B - Complete if H&P > 30 days Chief Complaint: Polyp of cervix uteri Allergies: Allergies Allergy/AdvReac Type Severity Reaction Status Date / Time No Known Allergies Allergy Verified 02/23/24 09:56 Plan Diagnosis/Plan: Unchanged I have reviewed the history and physical and performed a pertinent physical examination on my patient. No changes have occurred unless specified. Time Spent With Patient Time: Total time managing care of this patient today ____ minutes.
--- NOTE | 2024-03-16 09:01 | P.BOP_ITS ---
Brief Operative Note Date of Service: 03/16/24 Pre-op diagnosis: Abnormal endocervix by ultrasound Post-op diagnosis: other (Normal endometrial and endocervical cavity) Procedure: Hysteroscopy D&C Surgeon: Long Odell MD Anesthesia: GLMA Was an Physical Sciences Instructor used for this Procedure?: No Estimated blood loss (mL): 0 Pathology: other (Endometrial Scrapping.) Condition: stable Disposition: PACU
--- NOTE | 2024-03-16 09:02 | P.OP_ITS ---
Operative Note Operative Note Date of Service: 03/16/24 Narrative: Preop Diagnosis: Abnormal endocervix by ultrasound Operation: Diagnostic Hysteroscopy, Dilataion & Curettage Post Op Diagnosis: Normal endometrial and endocervical cavity, no evidence of pathology QBL: Minimal Anesthesia: GLMA Surgeon: Long Odell MD Marine Cargo Surveyor: None Complication: None Pathology: Endometrial Scrapings Procedure: The patient was put in the dorsal lithotomy position, scrubbed, and draped in the usual manner. A sterile speculum was inserted in the patient's vagina. The anterior lip of the cervix was grasped with a single tooth tenaculum. The cervix was dilated up to 5 mm, then the scope was inserted in the patient's uterus. Inspection revealed normal endocervical & endometrial cavity with no evidence of pathology. The scope was taken out of the uterine cavity , then sharp curetting was carried on with no complications. At the end of the procedure, all instruments were taken out of the patient uterine and vaginal cavity. The single tooth tenaculum was removed and homeostasis was assured using pressure. The patient tolerated the procedure well and was transferred to the PACU in a stable condition.
[2024-03-16 09:08] VITALS: BP 159/91; PULSE 97; RESP 18; TEMP 36.7; O2SAT 97
[2024-03-16 09:13] VITALS: BP 167/93; PULSE 70; RESP 18; O2SAT 99
[2024-03-16] MEDS: Acetaminophen 325 MG TABLET 650 MG PO (09:15)
[2024-03-16 09:18] VITALS: BP 142/93; PULSE 78; RESP 18; O2SAT 99
[2024-03-16] MEDS: oxyCODONE HCl Immed Release 5 MG TABLET PO (09:20)
[2024-03-16 09:23] VITALS: BP 162/88; PULSE 65; RESP 18; O2SAT 100
[2024-03-16 09:38] VITALS: BP 164/94; PULSE 68; RESP 18; TEMP 36.4; O2SAT 100
== END 2024-03-16 10:20 | disposition home or self-care (01) ==
PROVIDERS: PCP Physician Assistant; Visit Provider Obstetrics & Gynecology
PROC: 0UDB8ZZ Extraction of Endometrium, Via Natural or Artificial Opening Endoscopic (ICD-10-PCS; CPT 58558; principal; 2024-03-16 08:30)
DX: N85.00 Endometrial hyperplasia, unspecified (principal); D25.9 Leiomyoma of uterus, unspecified; I10 Essential (primary) hypertension; B00.9 Herpesviral infection, unspecified; E34.328 Other genetic causes of short stature; Z87.442 Personal history of urinary calculi; Z98.890 Other specified postprocedural states
CPT/HCPCS: 58558; 81025; 88305; J1885; J2003; J2405; J2704; J3010

== ENCOUNTER → 2024-03-16 06:29 | Outpatient (BNV) | payer OTHER, SELFPAY | PROVIDERS: PCP Physician Assistant; Visit Provider Obstetrics & Gynecology | DX: N84.1 Polyp of cervix uteri (principal) | CPT/HCPCS: 58558 ==

== ENCOUNTER → 2024-03-28 15:41 | Outpatient (BNVA) | payer OTHER, SELFPAY | PROVIDERS: PCP Physician Assistant; Visit Provider Obstetrics & Gynecology | DX: N84.1 Polyp of cervix uteri (principal) | CPT/HCPCS: 99212 ==

== ENCOUNTER 2024-04-12 10:10 | Outpatient (AMB) | payer OTHER, SELFPAY ==
--- NOTE | 2024-04-11 18:52 | A.OFFVIS_ITS ---
Intake Visit Reasons: 8m/CT( CT Pending) Intake Note: Patient is present for 8M/CT Urology Medication:ALLOPURINOL, VITAMIN B6 Antibiotic Allergy:NONE Blood Thinner:NONE Trolley Cleaner Required: No Allergies No Known Allergies Allergy (Verified 04/12/24 10:53) Medication List - Last Reconciled 04/12/24 by Aggie Castro MD albuterol sulfate 90 mcg/actuation 1 inh inhalation QID PRN 30 days allopurinol 100 mg PO DAILY diclofenac sodium 1% 2 grams topical QID 30 days fluticasone propionate 50 mcg/actuation 1 spray intranasal BID hyoscyamine sulfate 0.125 mg PO QID PRN lisinopril-hydrochlorothiazide 10-12.5 mg 1 tab PO DAILY 30 days loratadine 10 mg PO DAILY 90 days magnesium oxide 250 mg PO BID 30 days miscellaneous medical supply (Blood Pressure Cuff) As directed norethindrone (contraceptive) (Magda) 0.35 mg PO DAILY 90 days omeprazole 20 mg PO DAILY pyridoxine (vitamin B6) 100 mg PO DAILY riboflavin (vitamin B2) 50 mg PO DAILY 30 days sumatriptan succinate take 1 tab at onset of headache; if no relief may repeat 1 tab after at least 2 hrs; max = 4 tabs/24 hr PO valacyclovir (Valtrex) 1,000 mg PO BID 10 days HPI Comments Details: 04/12/24--FU CT stone protocol 02/13/24--patient transition specialist pending. Bernadette is here for follow-up due to kidney stones. She had prior left ESWL. I have reviewed the CT imaging 02/13/2024 there are 2 small kidney stones visualized in the upper and lower pole 2-3 mm. I have discussed results with the patient who states that she still gets intermittent left flank pain which she feels is related to the kidney stones. She has had improvement using a heating pad and [id number] Tylenol. I have discussed options for therapy, conservative monitoring as the stones are small she may pass them versus ureteroscopy laser lithotripsy. I have discussed re-evaluating with a 24 hour urine collection. The patient will hold on any surgical intervention at this time. Will repeat CT stone protocol in 1 year. Review of chart: 08/11/2023--Bernadette is a 38-year-old female who presents today to the office for a telehealth follow-up. (Video attempted) She had a renal ultrasound done 07/13/23. I have reviewed the renal ultrasound that reports a 6 mm nonobstructing stone. The patient previously had a 3 mm stone reported on prior ultrasound and is status post ESWL. I have discussed with the patient that there may be persistent fragments present in the left kidney. She denies any kidney pain or blood in the urine. Plan will be to re-evaluate in about 6 months. Will check with a CT at that time. 06/17/23-- s/p Left ESWL in may. The patient states she has not passsed any stones, She did have pain along the left side about 5 days ago. I will have her use flomax 0.4 mg for 7 days and encouraged increase fluids 03/25/2023?She is followed today for US results, and kidney stones. LV- 03/25/22. The patient states that she was seen in ER recently with abdominal pain and also has had intermittent left flank pain, she feels like the flank pain is due to the kidney stone. I reviewed the ER notes which showed findings was constipation and the patient was given laxative to take which she has not picked up prescribed yet. renal US results from 03/24/2023 revealed nonobstructive 0.3 cm calculus in the upper pole of the left kidney. No calculi or focal parenchymal lesions. No hydronephrosis. KUB X-ray results from 03/24/2023 revealed nonspecific bowel gas pattern. I have reviewed the renal US past reports showed kidney stones, size ranges from 5 mm to 3 mm. 24-hour urine collection results done on 07/05/22: Urine vol- 840 mL, Urine calcium - 19, Urine oxalate was 22, urine citrate was 170, urine sodium was 158. [facility] Medical History Migraine BPPV (benign paroxysmal positional vertigo) Asthma Osteoarthritis History of abnormal cervical Pap smear History of dwarfism GERD (gastroesophageal reflux disease) Leiomyoma HSV-1 (herpes simplex virus 1) infection HTN (hypertension) Kidney calculi Surgical History History of lithotripsy History of surgery Family History Mother No problems noted. Father No problems noted. Social History Housing: Apartment Alcohol intake: current Alcohol intake frequency: does not drink Patient Tobacco Use Status: Never used Tobacco e-Cigarette/Vaping Use: Never Used Second Hand Smoke Exposure: No service: No Current occupational status: disabled Cognitive needs: No Hearing needs: No Vision needs: Yes Female Reproductive History Menstrual Age of Menarche: 14 Results Reviewed Results Reviewed: Date of Service: 07/13/23 EXAMINATION: US RETROPERITONEAL LIMITED (RENAL ONLY) CLINICAL INFORMATION: Calculus of kidney. Status post left ESWL May 2023. COMPARISON: X-ray abdomen 05/11/2023 and 03/24/2023. Renal ultrasound 03/24/2023 and 03/07/2023. CT abdomen and pelvis with contrast 08/03/2020. TECHNIQUE: Real-time imaging of the kidneys. FINDINGS: RIGHT KIDNEY: 9.7 x 3.8 x 5.4 cm (SAG x AP x TRV). The kidney is normal in size, contour, and echogenicity. Renal cortical thickness is normal. No calculi or focal parenchymal lesions. No hydronephrosis. LEFT KIDNEY: 9.2 x 4.2 x 4 cm (SAG x AP x TRV). The kidney is normal in size, contour, and echogenicity. Renal cortical thickness is normal. 6 mm nonobstructing upper pole calculus. No hydronephrosis. IMPRESSION: 6 mm nonobstructing left renal calculus. No right-sided renal calculi. No hydronephrosis of either kidney. Assessment & Plan Assessment & Plan (1) Kidney stone on left side: Code(s): N20.0 - Calculus of kidney Category: Medical (2) Left flank pain: Code(s): R10.9 - Unspecified abdominal pain Category: Medical Plan The patient who states that she still gets intermittent left flank pain which she feels is related to the kidney stones. She has had improvement using a heating pad and [id number] Tylenol. I have discussed options for therapy, conservative monitoring as the stones are small she may pass them versus ureteroscopy laser lithotripsy. I have discussed re-evaluating with a 24 hour urine collection. The patient will hold on any surgical intervention at this time. Will repeat CT stone protocol in 1 year. Continue allopurinol 100 mg and vitamin B6 100 mg daily. Follow-up in [address] prior. Orders: Orders CT abdomen pelvis wo IV con 10 Months N20.0 - Calculus of kidney, R10.9 - Unspecified abdominal pain Medications: Refilled allopurinol 100 mg PO DAILY 90 tabs 2RF N20.0 - Calculus of kidney pyridoxine (vitamin B6) 100 mg PO DAILY 90 tabs 2RF N13.2 - Hydronephrosis with renal and ureteral calculous obstruction, N20.0 - Calculus of kidney Patient Instructions: The patient had an opportunity to ask questions regarding treatment plan. The patient expressed understanding and agreement with the above treatment plan. The patient is aware they should contact our office by phone for worsening of their current condition or the appearance of new symptoms. Compliance is encouraged with any medications and followup testing that is ordered. It is a privilege to be allowed the opportunity to participate in the urologic care of your patient. If you have any questions or concerns regarding treatment for the above conditions please do not hesitate to contact me. The office telephone contact is [phone]. This note is constructed in part using voice recognition software. While every effort has been made to ensure accuracy patient transition specialist errors may have been included. Yours sincerely, Aggie Castro MD Coding Level of Care Code Est Pt Level 4 (31764) Diagnoses Kidney stone on left side N20.0 Left flank pain R10.9
== END 2024-04-12 11:29 | disposition home or self-care (01) ==
LOC: HO.HUSH 10:11
PROVIDERS: PCP Physician Assistant; Visit Provider Urology
DX: N20.0 Calculus of kidney (principal); R10.9 Unspecified abdominal pain
CPT/HCPCS: 99214

== ENCOUNTER → 2024-04-12 10:10 | Outpatient (BNVA) | payer OTHER, SELFPAY | PROVIDERS: PCP Physician Assistant; Visit Provider Urology | DX: N20.0 Calculus of kidney (principal); R10.9 Unspecified abdominal pain | CPT/HCPCS: 99212 ==

== ENCOUNTER 2024-05-23 10:15 | Outpatient (REF) | payer OTHER, SELFPAY ==
[2024-05-23] MEDS: gadobutroL 7.5 ML VIAL IVPUSH (10:49)
== END 2024-05-23 10:16 | disposition home or self-care (01) ==
LOC: HO.MRI 10:15
PROVIDERS: PCP Physician Assistant; Visit Provider Physician Assistant
DX: G93.9 Disorder of brain, unspecified (principal)
CPT/HCPCS: 70552; A9585

== ENCOUNTER 2024-06-21 10:07 | Outpatient (AMB) | payer OTHER, SELFPAY ==
--- NOTE | 2024-06-21 00:24 | MHC.OFFVIS ---
Intake Visit Reasons: 10w/[facility] (set) Intake Note: Patient is present for follow [facility] Med: Vitamin B-6, Allopurinol Antibiotic Allergy: None Blood Thinner: None Patient Symptoms: Wedger Machine Required: No Accompanied by: Self / Same As Patient Allergies No Known Allergies Allergy (Verified 06/21/24 10:10) Medication List - Last Reconciled 06/21/24 by Aggie Castro MD albuterol sulfate 90 mcg/actuation 1 inh inhalation QID PRN 30 days allopurinol 100 mg PO DAILY diclofenac sodium 3% 1 appl topical BID 30 days fluticasone propionate 50 mcg/actuation 1 spray intranasal BID hyoscyamine sulfate 0.125 mg PO QID PRN lisinopril-hydrochlorothiazide 10-12.5 mg 1 tab PO DAILY 30 days loratadine 10 mg PO DAILY 90 days magnesium oxide 250 mg PO BID 30 days miscellaneous medical supply (Blood Pressure Cuff) As directed norethindrone (contraceptive) (Magda) 0.35 mg PO DAILY 90 days omeprazole 20 mg PO DAILY pyridoxine (vitamin B6) 100 mg PO DAILY riboflavin (vitamin B2) (Vitamin B-2) 50 mg PO DAILY sumatriptan succinate take 1 tab at onset of headache; if no relief may repeat 1 tab after at least 2 hrs; max = 4 tabs/24 hr PO 30 days valacyclovir (Valtrex) 1,000 mg PO BID 10 days HPI Comments Details: 06/21/24--Telehealth- 24 hr urine. Discussed 24 hour urine results: Total volume 1.10 mL, Calcium 143 mg; Oxalate 23 mg, Sodium 265, Citrate 170 mg. Instructed on importance of fluid intake, Low oxalate diet, discussed urine volume has improved, but urine sodium and calcium increased emphasized the importance of low sodium diet. Will cont to monitor kidney stones. renal US in 8 months. 30 minutes spent in review of records pertaining to this visit and including [id number] discussion with the patient and documentation of this visit. CTAP--02/08/24--two nonobstructing 3 mm calculi in the left kidney. There are no right renal calculi. Review of chart: 04/12/24--FU CT stone protocol 02/13/24--mainspring strip gauger pending. Bernadette is here for follow-up due to kidney stones. She had prior left ESWL. I have reviewed the CT imaging 02/13/2024 there are 2 small kidney stones visualized in the upper and lower pole 2-3 mm. I have discussed results with the patient who states that she still gets intermittent left flank pain which she feels is related to the kidney stones. She has had improvement using a heating pad and [id number] Tylenol. I have discussed options for therapy, conservative monitoring as the stones are small she may pass them versus ureteroscopy laser lithotripsy. I have discussed re-evaluating with a 24 hour urine collection. The patient will hold on any surgical intervention at this time. Will repeat CT stone protocol in 1 year. 08/11/2023--Bernadette is a 38-year-old female who presents today to the office for a telehealth follow-up. (Video attempted) She had a renal ultrasound done 07/13/23. I have reviewed the renal ultrasound that reports a 6 mm nonobstructing stone. The patient previously had a 3 mm stone reported on prior ultrasound and is status post ESWL. I have discussed with the patient that there may be persistent fragments present in the left kidney. She denies any kidney pain or blood in the urine. Plan will be to re-evaluate in about 6 months. Will check with a CT at that time. 06/17/23-- s/p Left ESWL in may. The patient states she has not passsed any stones, She did have pain along the left side about 5 days ago. I will have her use flomax 0.4 mg for 7 days and encouraged increase fluids 03/25/2023?She is followed today for US results, and kidney stones. LV- 03/25/22. The patient states that she was seen in ER recently with abdominal pain and also has had intermittent left flank pain, she feels like the flank pain is due to the kidney stone. I reviewed the ER notes which showed findings was constipation and the patient was given laxative to take which she has not picked up prescribed yet. renal US results from 03/24/2023 revealed nonobstructive 0.3 cm calculus in the upper pole of the left kidney. No calculi or focal parenchymal lesions. No hydronephrosis. KUB X-ray results from 03/24/2023 revealed nonspecific bowel gas pattern. I have reviewed the renal US past reports showed kidney stones, size ranges from 5 mm to 3 mm. 24-hour urine collection results done on 07/05/22: Urine vol- 840 mL, Urine calcium - 19, Urine oxalate was 22, urine citrate was 170, urine sodium was 158. [facility] Medical History Migraine BPPV (benign paroxysmal positional vertigo) Asthma Osteoarthritis History of abnormal cervical Pap smear History of dwarfism GERD (gastroesophageal reflux disease) Leiomyoma HSV-1 (herpes simplex virus 1) infection HTN (hypertension) Kidney calculi Surgical History History of lithotripsy History of surgery Family History Mother No problems noted. Father No problems noted. Social History Housing: Apartment Alcohol intake: current Alcohol intake frequency: does not drink Patient Tobacco Use Status: Never used Tobacco e-Cigarette/Vaping Use: Never Used Second Hand Smoke Exposure: No service: No Current occupational status: disabled Cognitive needs: No Hearing needs: No Vision needs: Yes Female Reproductive History Menstrual Age of Menarche: 14 Review of Systems Const All systems reviewed & are unremarkable except as noted in HPI and below Reports no additional complaints Eyes Reports no additional complaints ENT Reports no additional complaints Card Reports no additional complaints Resp Reports no additional complaints GI Reports no additional complaints Reports as per HPI Musc Reports no additional complaints Skin/Breast Reports system reviewed and no additional complaints, except as documented Neuro Reports no additional complaints Psych Reports no additional complaints Endo Reports no additional complaints Mohit/Lymph Reports no additional complaints Aller/Immun Reports no additional complaints Telehealth Telehealth Telehealth [facility]: [facility] Location of provider rendering services: practice address Location of patient: address on file Patient Identification confirmed using: Name, : Yes Telehealth method: video Patient verbally consented to treatment: Yes Patient verbally consented to billing insurance company: Yes Patient informed of any privacy concerns related to visit: Yes Results Reviewed Results Reviewed: Date of Service: 02/13/24 CT ABDOMEN AND PELVIS WITHOUT CONTRAST CLINICAL INFORMATION: Calculus of kidney. COMPARISON: 07/26/2020. TECHNIQUE: Multidetector volumetric imaging was performed from the superior aspect of the liver through the pubic symphysis. Sagittal and coronal reformatted images were obtained on the technologist's workstation. This CT examination was performed using dose optimization techniques as appropriate, variously including the following: *Automated exposure control *Adjustment of mA and/or kV according to patient size (this includes techniques or standardized protocols for targeted exams where dose is matched to indication/reason for exam; i.e. extremities or head) *Use of iterative reconstruction technique DLP: 432 mGy-cm FINDINGS: LUNG BASES: The visualized lung bases are clear. Normal heart size. LIVER, GALLBLADDER, AND BILIARY TREE: Unenhanced liver is normal in size, and attenuation. No focal abnormality. The gallbladder is unremarkable with no evidence of radiopaque gallstones, gallbladder wall thickening, or obvious pericholecystic inflammatory changes. PANCREAS: Unremarkable. SPLEEN: Unremarkable. ADRENAL GLANDS: Unremarkable. KIDNEYS AND URETERS: -3 mm nonobstructing calculus mid to superior pole left kidney, with a similar 3 mm inferior pole nonobstructing calculus. -Left kidney otherwise normal. -Right kidney is normal without calculi, mass, or hydronephrosis. -Ureters are nondilated. BLADDER: Unremarkable. GASTROINTESTINAL TRACT: -The stomach is decompressed. It is otherwise normal. -Small bowel is normal in caliber and course and appearance. -Normal appendix present. -Colon is normal in caliber and course without wall thickening or inflammation. No significant diverticular disease is apparent. -Rectum is normal. ABDOMINAL WALL: -Normal. No masses, hernias, or abnormal lymph nodes. LYMPH NODES: -No pathologic lymphadenopathy is present. -There are numerous small mesenteric nodes present throughout the small bowel and large bowel mesentery, nonspecific and presumably reactive/inflammatory in nature. VASCULAR: -Normal. PELVIC VISCERA: Unremarkable. OSSEOUS STRUCTURES: -Intramedullary caroline with transtrochanteric screw right proximal femur. -Minimal degenerative changes throughout the spine. A few scattered Schmorl's nodes present in the superior endplates of T10 and T11. IMPRESSION: 1. No acute findings in the abdomen or pelvis. 2. There are two nonobstructing 3 mm calculi in the left kidney. There are no right renal calculi. There is no hydronephrosis or hydroureter. 3. Additional ancillary findings as discussed in the body of the report. Date of Service: 07/13/23 EXAMINATION: US RETROPERITONEAL LIMITED (RENAL ONLY) CLINICAL INFORMATION: Calculus of kidney. Status post left ESWL May 2023. COMPARISON: X-ray abdomen 05/11/2023 and 03/24/2023. Renal ultrasound 03/24/2023 and 03/07/2023. CT abdomen and pelvis with contrast 08/03/2020. TECHNIQUE: Real-time imaging of the kidneys. FINDINGS: RIGHT KIDNEY: 9.7 x 3.8 x 5.4 cm (SAG x AP x TRV). The kidney is normal in size, contour, and echogenicity. Renal cortical thickness is normal. No calculi or focal parenchymal lesions. No hydronephrosis. LEFT KIDNEY: 9.2 x 4.2 x 4 cm (SAG x AP x TRV). The kidney is normal in size, contour, and echogenicity. Renal cortical thickness is normal. 6 mm nonobstructing upper pole calculus. No hydronephrosis. IMPRESSION: 6 mm nonobstructing left renal calculus. No right-sided renal calculi. No hydronephrosis of either kidney. Assessment & Plan Assessment & Plan (1) Nephrolithiasis: Code(s): N20.0 - Calculus of kidney Category: Medical Plan Reviewed 24 hr urine: discussed urine volume has improved, but urine sodium and calcium increased emphasized the importance of low sodium diet. Will cont to monitor kidney stones. renal US in 8 months. Orders: Orders US renal BI 7 Months N20.0 - Calculus of kidney Patient Instructions: The patient had an opportunity to ask questions regarding treatment plan. The patient expressed understanding and agreement with the above treatment plan. The patient is aware they should contact our office by phone for worsening of their current condition or the appearance of new symptoms. Compliance is encouraged with any medications and followup testing that is ordered. It is a privilege to be allowed the opportunity to participate in the urologic care of your patient. If you have any questions or concerns regarding treatment for the above conditions please do not hesitate to contact me. The office telephone contact is [phone]. This note is constructed in part using voice recognition software. While every effort has been made to ensure accuracy mainspring strip gauger errors may have been included. Yours sincerely, Aggie Castro MD Coding Level of Care Code Tele Est Pt Level 4 (28719) Diagnoses Nephrolithiasis N20.0
== END 2024-06-21 11:09 | disposition home or self-care (01) ==
LOC: HO.HUSH 10:07
PROVIDERS: PCP Physician Assistant; Visit Provider Urology
DX: N20.0 Calculus of kidney (principal)
CPT/HCPCS: 99214

== ENCOUNTER → 2024-06-21 10:07 | Outpatient (BNVA) | payer OTHER, SELFPAY | PROVIDERS: PCP Physician Assistant; Visit Provider Urology ==

== ENCOUNTER 2024-06-27 10:27 | Outpatient (AMB) | payer OTHER, SELFPAY ==
--- NOTE | 2024-06-27 10:39 | A.OFFPC_ITS ---
Vital Signs 06/27/24 10:40 Height 4 ft Weight 143 lb BMI 43.6 BP 142/90 H Blood Pressure Location Lt brachial Position Sitting Pulse 70 Pulse Source Pulse Oximeter Pulse Oximetry (%) 99 Oxygen Delivery Method Room Air Intake Visit Reasons: Follow Up [employer] Rep[employer]r Required: No Accompanied by: Self / Same As Patient Allergies No Known Allergies Allergy (Verified 06/27/24 10:48) Medication List - Last Reconciled 06/27/24 by Lisandro James PA-C albuterol sulfate 90 mcg/actuation 1 inh inhalation QID PRN 30 days allopurinol 100 mg PO DAILY diclofenac sodium 3% 1 appl topical BID 30 days fluticasone propionate 50 mcg/actuation 1 spray intranasal BID hyoscyamine sulfate 0.125 mg PO QID PRN lisinopril-hydrochlorothiazide 10-12.5 mg 1 tab PO DAILY 30 days loratadine 10 mg PO DAILY 90 days magnesium oxide 250 mg PO BID 30 days miscellaneous medical supply (Blood Pressure Cuff) As directed norethindrone (contraceptive) (Magda) 0.35 mg PO DAILY 90 days omeprazole 20 mg PO DAILY pyridoxine (vitamin B6) 100 mg PO DAILY riboflavin (vitamin B2) (Vitamin B-2) 50 mg PO DAILY sumatriptan succinate take 1 tab at onset of headache; if no relief may repeat 1 tab after at least 2 hrs; max = 4 tabs/24 hr PO 30 days valacyclovir (Valtrex) 1,000 mg PO BID 10 days Tobacco use date assessed: 06/27/24 Dental Screening Dental Screen Date: 06/27/24 Did you have a dental visit in the last 12 months?: Yes Did you have a dental problem in the last 6 months where you did not have access to dental care?: No Was dental information given to patient?: Patient has dentist HPI Follow Up HPI Details Patient is a 39-year-old female here today a follow-up visit. ? Patient's past medical history significant for nephrolithiasis, hypertension , obesity,. Concern--> continues to have bilateral elbow pain. 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 Has gotten injections and has done therapy which have only gave minimal relief. She does report diclofenac 3% gel has been helpful on her elbows. Hypertension:? Blood pressure today in office slightly elevated, she reports she did not take her blood pressure medication today. Patient continues on lisinopril hydrochlorothiazide with good effect. .. Migraines: Reports migraines are still evident in on nearly every day basis. She does use sumatriptan 25 mg an as needed basis. She was told to follow up with Neurology as she continues to headaches even when her blood pressure is now under control. She reports her headaches are mostly in the back side of her head that radiate into her parietal and temporal regions. Concerns here for possible neck issue. Will get x-rays of neck and try physical therapy. Has underwent 2 brain MRIs without a need significant intracranial pathology. She is willing to try higher dose of sumatriptan Has upcoming appointment with Neurology for evaluation of her migraines. .. Nephrolithiasis: Followed by [facility], is under surveillance with renal ultrasounds for her kidney stones. COUNT INCLUDES THE [facility] Medical History Migraine BPPV (benign paroxysmal positional vertigo) Asthma Osteoarthritis History of abnormal cervical Pap smear History of dwarfism GERD (gastroesophageal reflux disease) Leiomyoma HSV-1 (herpes simplex virus 1) infection HTN (hypertension) Kidney calculi Surgical History History of lithotripsy History of surgery Family History Mother No problems noted. Father No problems noted. Social History Housing: Apartment Alcohol intake: current Alcohol intake frequency: does not drink Patient Tobacco Use Status: Never used Tobacco e-Cigarette/Vaping Use: Never Used Second Hand Smoke Exposure: No service: No Current occupational status: disabled Cognitive needs: No Hearing needs: No Vision needs: Yes Female Reproductive History Menstrual Age of Menarche: 14 Questionnaire PHQ-9 Over the last 2 weeks, how often have you been bothered by any of the following problems? 1. Little interest or pleasure in doing things: not at all 2. Feeling down, depressed, or hopeless: not at all 3. Trouble falling or staying asleep, or sleeping too much: not at all 4. Feeling tired or having little energy: not at all 5. Poor appetite or overeating: not at all 6. Feeling bad about yourself - or that you are a failure or have let yourself or your family down: not at all 7. Trouble concentrating on things, such as reading the newspaper or watching television: not at all 8. Moving or speaking so slowly that other people could have noticed. Or the opposite - being so fidgety or restless that you have been moving around a lot more than usual: not at all 9. Thoughts that you would be better off or of hurting yourself in some way: not at all Total score: 0 Depression Screening Interpretation: Negative Depression Screening Done: Yes 54096 - PHQ-9 Billing: Yes Source: Developed by Drs. Vinod Love, Mica Baez, Jarad Apple and colleagues, with an educational jose from [employer]. Thrive Questionnaire Date Thrive assessed: 06/27/24 I am a: Patient What is your living situation today?: I have a steady place to live Within the past 12 months, did the food you bought not last and you didn't have the money to get more?: Never true Within the past 12 months, did you worry whether your food would run out before you got money to buy more?: Never true Do you have trouble paying for medicines?: No Do you have trouble getting transportation to medical appointments?: No Do you have trouble paying your heating and electricity bill?: No Do you have trouble taking care of your child, family member or friend?: No Do you have trouble with day-to-day activities such as bathing, preparing meals, shopping, managing finances, etc.?: No Are you currently unemployed and looking for a job?: No Are you interested in more education?: No Please select the resources that you would like help with: None Currently or been in a relationship where the following occur: No concerns reported THRIVE Score: 0 AUDIT C Alcohol Use Questionnaire (AUDIT-C) 1. How often do you have a drink containing alcohol?: Monthly or less 2. How many drinks containing alcohol do you have on a typical day when you are drinking?: 1 or 2 3. How often do you have six or more drinks on one occasion?: Never Total Score: 1 WILLARD-7 AMB Questionnaire WILLARD-7 Date WILLARD - 7 assessed: 06/27/24 Feeling nervous, anxious, or on edge: 0 = Not at all Not being able to stop or control worryin = Not at all Worrying too much about different things: 0 = Not at all Trouble relaxin = Not at all Being so restless that it is hard to sit still: 0 = Not at all Becoming easily annoyed or irritable: 0 = Not at all Feeling afraid as if something awful might happen: 0 = Not at all Total WILLARD-7 score (0-4 normal; 5-9 mild; 10-14 moderate; 15-21 severe): 0 Source: Developed by Drs. Vinod Love, Mica Baez, Jarad Apple and colleagues, with an educational jose from [employer]. WILLARD-7 Assessment Billing WILLARD-7 Assessment Tool: WILLARD-7 Assessment 11559 Review of Systems Const Reports headache(s) Eyes Denies loss of vision ENT Denies vertigo, Denies dizziness, Reports headache(s) and Denies sore throat Card Denies chest pain, Denies leg edema and Denies lightheadedness Resp Denies cough, Denies hemoptysis and Denies wheezing GI Denies abdominal pain, Denies melena, Denies constipation, Denies diarrhea and Denies vomiting Denies urinary frequency, Denies dysuria and Denies urinary urgency Musc Details: + bilateral elbow pain Denies arthralgias, Denies joint swelling, Denies numbness and Denies tingling Neuro Denies Abnormal speech present, Denies behavioral changes, Denies vertigo, Denies dizziness, Reports headache(s), Denies loss of vision, Denies memory loss, Denies numbness and Denies tingling Psych Denies anxiety, Denies behavioral changes, Denies depression, Denies memory loss and Denies panic attacks Mohit/Lymph Denies easy bleeding and Denies easy bruising Aller/Immun Denies wheezing Physical exam (Primary Care) Vital Signs: Last Vital Signs Pulse 70 06/27/24 10:40 BP 142/90 H 06/27/24 10:40 Pulse Ox 99 06/27/24 10:40 Oxygen Delivery Method Room Air 06/27/24 10:40 BMI result Body Mass Index 43.6 Tobacco/Smoking Status: Tobacco use Status Tobacco use date assessed 06/27/24 06/27/24 10:46 Patient Tobacco Use Status Never used Tobacco 06/27/24 10:46 e-Cigarette/Vaping Use Never Used 06/27/24 10:46 PHQ-9: PHQ-9 Score PHQ-9: Total score 0 06/27/24 10:51 Depression Screening Interpretation: Negative Thrive Assessment: Date of Thrive Assessment Date Thrive assessed 06/27/24 06/27/24 10:46 Currently or been in a relationship where the following occur: No concerns reported Const General: healthy appearing, no acute distress, alert and awake Nutritional Appearance: well nourished Orientation/consciousness: oriented to person, oriented to place and oriented to time HENMT Ears: TM's normal bilaterally General nose exam: Normal nasal mucous membranes and turbinates present Eyes Conjunctivae: conjunctivae normal Sclerae: sclerae normal Pupils: Equal, round and reactive pupils present Neck Neck: Yes no lymphadenopathy and Yes no JVD Thyroid: Thyroid normal Carotids: no bruits Resp Effort & Inspection: normal respiratory effort and not tachypneic Auscultation: no crackles, no rales, no rhonchi and no wheezes Cardio Rate: regular rate Rhythm: regular rhythm Heart sounds: no murmurs and normal S1 and S2 GI Palpation (GI): Soft to palpation, nontender, no hepatomegaly and no splenomegaly Auscultation: normal bowel sounds Skin General skin exam: no rashes or lesions noted and dry skin Neuro General: oriented to person, oriented to place and oriented to time Cranial nerves: Yes Equal, round and reactive pupils present Speech: No Abnormal speech present Gait exam (Neuro): Normal gait present Motor exam (neuro): no tremor noted Extrem Right upper extremity: full ROM Left upper extremity: full ROM Right lower extremity: full ROM; no edema Left lower extremity: full ROM; no edema Psych Mental Status: mental status grossly normal Speech and movement: Normal speech and movement present Affect: normal affect Attitude: cooperative Thought process: Normal thought process present Coding Level of Care Code Est Pt Level 4 (05685) Diagnoses Primary hypertension I10 Hypertension type: primary hypertension Medial epicondylitis of both elbows M77.01; M77.02 Cervical spine pain M54.2 Subacute frontal sinusitis J01.10 Chronicity: subacute Sinusitis location: frontal Additional Codes WILLARD-7 Assessment Billing - WILLARD-7 Assessment Tool: WILLARD-7 Assessment 01441 ([id number]) PHQ-9 - 01292 - PHQ-9 Billing: Yes ([id number]) Assessment & Plan Assessment & Plan (1) HTN (hypertension): Code(s): I10 - Essential (primary) hypertension Category: Medical Qualifiers: Hypertension type: primary hypertension Qualified Code(s): I10 - Essential (primary) hypertension Plan: Patient's blood pressure slightly elevated today in office. She reports she would not take her blood pressure medication today. Will continue her current dose of lisinopril hydrochlorothiazide which seems to helped her blood pressure closely. Goal blood pressures to be below 140/90 (2) Medial epicondylitis of both elbows: Code(s): M77.01 - Medial epicondylitis, right elbow; M77.02 - Medial epicondylitis, left elbow Category: Medical Plan: Patient continues to have bilateral elbow pain. 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 Has seen specialist and has done physical therapy in the past with only limited amount of relief. Has gotten injections in the past as well. She does report diclofenac 3% gel has been helpful (3) Cervical spine pain: Code(s): M54.2 - Cervicalgia Category: Medical Plan: Patient does report having pain in the back of her head that radiates into her temporal region. He may cervical spine issue thus will try to get x-ray and start physical therapy to help her with her neck that may help reduce her headaches. (4) Sinus infection: Code(s): J32.9 - Chronic sinusitis, unspecified Category: Medical Qualifiers: Chronicity: subacute Sinusitis location: frontal Qualified Code(s): J01.10 - Acute frontal sinusitis, unspecified Plan: Over the last month has been having sinus congestion, cough and nasal congestion. She does report smelling smoke quite often since having her nasal congestion. Unclear if this is sinus infection thus will treat with antibiotic to see if symptoms clear. Orders: Orders Comprehensive Dieterich. Panel Fast Today I10 - Essential (primary) hypertension XR cervical spine 4V Today M54.2 - Cervicalgia PT Evaluation and Treatment Today M54.2 - Cervicalgia Complete Blood Count no Diff Today I10 - Essential (primary) hypertension Medications: New sumatriptan succinate take 1 tab at onset of headache; if no relief may repeat 1 tab after at least 2 hrs; max = 4 tabs/24 hr PO 9 tabs 1RF 30 days G43.809 - Other migraine, not intractable, without status migrainosus azithromycin For 250 mg dose pack: take 500 mg today (day 1), then 250 mg for 4 days (days 2-5) PO 6 tabs 0RF J01.10 - Acute frontal sinusitis, unspecified Refilled diclofenac sodium 3% 1 appl topical BID 100 grams 3RF 30 days M19.049 - Primary osteoarthritis, unspecified hand Discontinued sumatriptan succinate Discontinued Reason: Doctor's Order take 1 tab at onset of headache; if no relief may repeat 1 tab after at least 2 hrs; max = 4 tabs/24 hr PO 30 days 9 tabs 3RF G43.809 - Other migraine, not intractable, without status migrainosus
[2024-06-27 10:40] VITALS: BP 142/90; PULSE 70; O2SAT 99; BMI 43.6
== END 2024-06-27 11:13 | disposition home or self-care (01) ==
PROVIDERS: PCP Physician Assistant; Visit Provider Physician Assistant
DX: I10 Essential (primary) hypertension (principal); M77.01 Medial epicondylitis, right elbow; M77.02 Medial epicondylitis, left elbow; M54.2 Cervicalgia; J01.10 Acute frontal sinusitis, unspecified

== ENCOUNTER → 2024-06-27 10:27 | Outpatient (BNVA) | payer OTHER, SELFPAY | PROVIDERS: PCP Physician Assistant; Visit Provider Physician Assistant | DX: I10 Essential (primary) hypertension (principal); M77.01 Medial epicondylitis, right elbow; M77.02 Medial epicondylitis, left elbow; M54.2 Cervicalgia; J01.10 Acute frontal sinusitis, unspecified | CPT/HCPCS: 96127; 99212 ==

== ENCOUNTER 2024-08-14 08:54 | Outpatient (RCR) | payer OTHER, SELFPAY ==
--- NOTE | 2024-07-18 14:01 | MHC.PT.EP ---
[facility] [place] Office [place] Office [place] [facility] [address] Channing Verduzco [address] [phone] F: [phone] F: [phone] F: [phone] F: [phone] Physical Therapy Plan of Care Date of Evaluation: 07/18/24 Date of Surgery: Diagnosis: cervical spine pain (RL) Assessment: pt is a 39 y/o female presenting to physical therapy w/ referring diagnosis of cervical spine pain. pt's signs and symptoms are consistent w/ cervicogenic headache. Impairments include pain, decreased range of motion, decreased strength, impaired functional mobility, impaired postural awareness, and altered ambulation mechanics. pt is a good candidate for skilled PT due to age, potential remediation of impairments, typical disease/condition progression and prognosis, comorbidities, and motivation. pt would benefit from skilled PT intervention to provide a tailored strengthening and stretching exercise program, functional training, gait training, postural re-training, neuromuscular re-education, modalities as needed for pain, equipment safety demonstration. Frequency and Duration: The patient will be seen 2x/wk for 4 wks Short Term Goals: pt will be I w/ HEP to promote self-management of condition. pt will demo proper sitting and sidelying posture w/ use of towel rolls to promote neutral spine w/ self care and sleeping. Long-Term Goals: pt will report WILLETT frequency of <1x wk to promote improved tolerance for ADLs. pt will improve B cervical rotation by at least 15* to promote ease in head turns for scanning environment for safety w/ ambulation. Treatment Plan: Modalities to reduce pain, spasms and effusion. Manual therapy to restore motion and function. Therapeutic exercise to improve strength and flexibility. Neuromuscular re-education for posture and balance. Therapeutic activities to return to functional activities of daily living. Electronically signed by: Emma Herzog PT, DPT Please sign and return to therapist. Thank you for your referral.
--- NOTE | 2024-08-31 10:22 | MHC.PT.DC ---
[facility] [place] Office [place] Office [place] Office [address] Channing Verduzco [address] [phone] F: [phone] F: [phone] F: [phone] F: [phone] Physical Therapy Discharge Report Diagnosis: cervical spine pain (RL) Date of Surgery: Date of Evaluation: 07/18/24 Date of Discharge: 08/31/24 Treatments to Date: 6 Cancellations to Date: 3 No Shows to Date: 0 Discharge Status: Improved Function Independent with HEP Discharge Summary: Overall, pt is reporting significant improvement in headache severity and frequency. She has achieved nearly all goals established at initial evaluation. Her most recent WILLETT most likely had hormone component as she felt as though she was going to get her period. Did not end up getting her period because she's on control but had cramping and some spotting. Advised her to follow-up w/ [facility] to determine if this is appropriate method and/or dosage. Plan is D/C to HEP. Electronically signed by: Emma Herzog PT, DPT Please sign and return to therapist. Thank you for your referral.
== END 2024-08-31 10:23 | disposition home or self-care (01) ==
LOC: HO.PT 08:54
PROVIDERS: PCP Physician Assistant; Visit Provider Physician Assistant
DX: M54.2 Cervicalgia (principal)
CPT/HCPCS: 97110; 97140; 97162; 97164

== ENCOUNTER 2024-11-29 10:18 | Outpatient (AMB) | payer OTHER, SELFPAY ==
[2024-11-29 10:49] VITALS: BP 190/120; PULSE 85; O2SAT 99; BMI 45.2
--- NOTE | 2024-11-29 10:49 | MHC.OFFVIS ---
Vital Signs 11/29/24 10:49 Height 4 ft Weight 148 lb BMI 45.2 BP 190/120 H Blood Pressure Location Rt brachial Position Sitting Pulse 85 Pulse Source Pulse Oximeter Pulse Oximetry (%) 99 Oxygen Delivery Method Room Air Intake Visit Reasons: INP-Migraines Intake Note: New patient visit for migraines. Financial Intern Required: No Accompanied by: Self / Same As Patient Allergies No Known Allergies Allergy (Verified 06/27/24 10:48) Medication List - Last Reconciled 11/29/24 by MICHAEL Hoover albuterol sulfate 90 mcg/actuation 1 inh inhalation QID PRN 30 days allopurinol 100 mg PO DAILY azithromycin For 250 mg dose pack: take 500 mg today (day 1), then 250 mg for 4 days (days 2-5) PO celecoxib (Celebrex) 200 mg PO DAILY 15 days diclofenac sodium 3% 1 appl topical BID 30 days fluticasone propionate 50 mcg/actuation 1 spray intranasal BID hyoscyamine sulfate 0.125 mg PO QID PRN lisinopril-hydrochlorothiazide 10-12.5 mg 1 tab PO DAILY 30 days loratadine 10 mg PO DAILY 90 days magnesium oxide 250 mg PO BID 30 days miscellaneous medical supply (Blood Pressure Cuff) As directed norethindrone (contraceptive) (Magda) 0.35 mg PO DAILY 90 days omeprazole 20 mg PO DAILY pyridoxine (vitamin B6) 100 mg PO DAILY riboflavin (vitamin B2) (Vitamin B-2) 50 mg PO DAILY valacyclovir (Valtrex) 1,000 mg PO BID 10 days HPI Comments Details: History of Present Illness The patient is a 39-year-old right-handed female presenting with chronic migraines. She reports that the migraines have been more frequent over the past year and a half, occurring daily and lasting all day. The headaches are described as pressure-like, starting on the left side of the head/neck and sometimes moving to the front. She states she did not do PT a few months ago, which was quite helpful for her neck and headaches. The patient has a history of essential hypertension, which is currently managed with lisinopril. Her blood pressure is elevated today at 192/120, and patient states she forgot to take her medication this morning. She denies shortness of breath or chest pain, or palpitations. m, Notes that her blood pressure will be more elevated if she forgets to take her medication. She states her current BP cuff is broken. The patient also has osteoarthritis, primarily affecting her elbows, and experiences joint pain. She uses Celebrex as needed for arthritis pain management, tries to avoid using it regularly she read that it can increase her risk for cardiovascular complications. The patient has a history of asthma, which is described as intermittent. She does not report any recent exacerbations. The patient reports insomnia, with difficulty falling asleep and maintaining sleep. She typically goes to bed between 3:00 to 4:00 AM and wakes up between noon and 5:00 PM. 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 This occurs both during and outside of headache episodes. The patient has a history of sinusitis and reports occasional sinus infections. Past Medical History - Migraine - Essential Hypertension - Osteoarthritis - Asthma - Kidney Stones - Insomnia - Phantosmia - Sinusitis Family History - Mother: History of headaches Review of Systems - Vision: Wears glasses - Neurological: Reports daily headaches with pressure-like sensation, light sensitivity, and difficulty concentrating. Denies auras, nausea, or vomiting. Had dizziness but this improved. - Musculoskeletal: Reports joint pain, especially in elbows, due to osteoarthritis. Left-sided neck pain only during headaches. Denies any recent injuries. - Respiratory: Reports intermittent asthma. Denies recent exacerbations. - Cardiovascular: Reports elevated blood pressure readings when medication is missed. Denies chest pain or palpitations. - : Kidney stones x3, managed with allopurinol and vitamin B6. Urinary frequency. - Surgical Coordinator: Menstrual cycle changes after starting new OCP help manage headaches- Irregular, barely visible now Currently on OCP for control. - Sleep: Reports insomnia with difficulty falling and staying asleep. Denies snoring or sleep apnea. - ENT: Reports phantosmia with persistent smell of smoke for about a year.. Denies any recent sinus infections. Pertinent denials: Denies history of head injury, concussion, seizure, syncope, diabetes, thyroid disorder, history of neck injury, sleep apnea. Results - Imaging: Previous February and May 2024 brain MRI showed a left frontal white matter lesion with no inflammation or interval change on follow-up MRI. Headache Lifestyle Factors - Reports insomnia with irregular sleep patterns, going to bed at 3:00 to 4:00 AM and waking up between noon and 5:00 PM. - Uses a heated pad for headache relief. - No regular exercise reported. Social History - Employment: Currently unemployed and on disability. - Housing: Lives alone. - Substance Use: Occasional alcohol use, denies smoking or other substance use. Cognitive Health The patient demonstrates intact cognitive function with no reported issues in attention, memory recall, or language abilities. Exercise The patient reports no regular exercise routine and is currently not engaged in any physical activities. Nutrition The patient reports difficulty consuming salads due to gag reflex triggered by the crunchiness, but can consume cooked vegetables without issue. Sleep - Typical bedtime between 3:00 to 4:00 AM, with wake-up time between noon and 5:00 PM. - Reports difficulty falling asleep and maintaining sleep. - Denies snoring or sleep apnea. Substance Use The patient reports occasional alcohol consumption and denies smoking or use of illicit substances. Employment - Currently unemployed and on disability. Headache questionnaire: Onset of initial headache symptoms: Years ago, more frequent past year and a half Initial precipitating cause of this headache: Associated with menstrual cycle Previous workup for this headache: Brain MRI Types of headache disorders: Migraine Typical headache characteristics: Prodrome symptoms: Denies Aura: Denies Headache pain intensity: Severe Location, quality, characteristics of this headache: Pressure on the left side of the head and neck, sometimes moving to the front Associated migraine symptoms: Light sensitivity, difficulty concentrating, need to lay down Headache postdrome: Denies Headache aggravating factors: Laying on back, which aggravates neck pain. Headache triggers: Menstrual cycle, flying Time of day this headache usually occurs: No specific time of day Duration of this headache: All day Frequency of this headache: Every day How does headache impact your life? Has to lay down Current acute medication use/interventions: Tylenol 500 mg Current preventative medication use: None Current non-pharmacological interventions: lifestyle modifications such as using a heated pad. [facility], LAT[facility] Medical History Migraine BPPV (benign paroxysmal positional vertigo) Asthma Osteoarthritis History of abnormal cervical Pap smear History of dwarfism GERD (gastroesophageal reflux disease) Leiomyoma HSV-1 (herpes simplex virus 1) infection HTN (hypertension) Kidney calculi Surgical History History of lithotripsy History of surgery Family History Mother No problems noted. Father No problems noted. Social History Housing: Apartment Alcohol intake: current Alcohol intake frequency: does not drink Patient Tobacco Use Status: Never used Tobacco e-Cigarette/Vaping Use: Never Used Second Hand Smoke Exposure: No service: No Current occupational status: disabled Cognitive needs: No Hearing needs: No Vision needs: Yes Female Reproductive History Menstrual Age of Menarche: 14 Physical Exam Vital Signs: Last Vital Signs Pulse 85 11/29/24 10:49 BP 190/120 H 11/29/24 10:49 Pulse Ox 99 11/29/24 10:49 Oxygen Delivery Method Room Air 11/29/24 10:49 BMI result Body Mass Index 45.2 Const Orientation/consciousness: patient oriented x3 Resp Effort & Inspection: normal respiratory effort and able to speak in complete sentences Neuro Other: Limited cervical range of motion, more so when extension. Bilateral posterior cervical tightness, with tenderness on the left. 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 General: patient oriented x3 Cranial nerves: Yes CN's II-XII intact bilaterally Cognition (Neuro): normal cognition Gait exam (Neuro): Normal gait present Motor exam (neuro): 5/5 motor strength present throughout Deep tendon reflexes (DTR's): Right triceps reflex intensity grade: 2+, Left triceps reflex intensity grade: 2+, Rt Biceps (C5, C6): 2+, Left biceps reflex intensity grade: 2+, Right brachioradialis reflex intensity grade: 2+, Left brachioradialis reflex intensity grade: 2+, Right patellar reflex intensity grade: 2+ and Left patellar reflex intensity grade: 2+ Coordination: [id number] test normal, tandem gait normal and Romberg test negative Pupils: Normal pupillary reactivity/response: bilateral Psych Appearance: grossly normal Mental Status: mental status grossly normal Speech and movement: Normal speech and movement present Affect: normal affect Attitude: cooperative Thought process: Normal thought process present Assessment & Plan Assessment & Plan (1) Worsening headaches: Code(s): R51.9 - Headache, unspecified Category: Medical (2) Chronic migraine without aura: Code(s): G43.709 - Chronic migraine without aura, not intractable, without status migrainosus Category: Medical (3) Cervical spine pain: Code(s): M54.2 - Cervicalgia Category: Medical (4) HTN (hypertension): Code(s): I10 - Essential (primary) hypertension Category: Medical Qualifiers: Hypertension type: primary hypertension Qualified Code(s): I10 - Essential (primary) hypertension Plan Discussion Notes During the visit, we discussed the patient's chronic migraines and the need for a comprehensive management plan. We considered the use of propranolol as a preventative measure, given its dual benefit for migraine and hypertension management. The potential use of Botox for headache management was also mentioned, especially if current interventions prove ineffective. We reviewed the patient's current medications and discussed the possibility of adjusting magnesium and vitamin B2 dosages to optimize migraine prevention. The importance of regular blood pressure monitoring was emphasized, and a new blood pressure cuff was prescribed. We also discussed the potential need for a repeat MRI and x-ray of the neck to further evaluate the patient's condition. Plan and patient instructions: Pt advised to undergo: Brain MRI with and without contrast- to a status of white matter lesions and ongoing headache. XR C-spine complete with flexion and extension Future considerations: Sleep study, referral back to PT For high blood pressure: Obtain new BP cuff, check BP after returning home and taking your BP medication. Try to be consistent in taking your blood pressure medication. For Phantosmia: Unlikely migraine aura or epileptic aura due to duration of symptoms Trial using OTC saline sprays Consider ENT referral if symptoms persist. For overall headache management: Optimize good self-care, including but not limited to maintaining a healthy diet, adequate fluid intake, adequate sleep, and engaging in regular physical activity. Track headaches, especially after any treatment regimen changes. Migraine [employer] is one of many headache tracking apps. Information shared on non-pharmacological interventions which may help to alleviate headache attack burden. For acute headache treatment: Discussed importance of taking acute medications at the first sign of headache, however stressed importance of avoiding acute medication overuse (especially with combined headache medications). Trial Ubrogepant (Ubrelvy) 100mg tab, 1/2 - 1 tab (50-100mg) at onset of headache, may repeat in 2 hours. Max of 2 tabs (200mg) per 24 hours. May adjunct with OTC Tylenol 650mg q 4 hours, Ibuprofen 600mg q 6 hours, or Naproxen 440mg q 12 hrs prn. Do not take w/ Butalbital (Fioricet or Fiorinal). Potential adverse effects, include but are not limited to fatigue, nausea, dry mouth, constipation Previous acute migraine medication trials: Imitrex- somewhat effective Acute migraine medication contraindications: All triptans and DHE due to uncontrolled hypertension. For headache prevention medication: Preventative medications should be taken routinely as prescribed for best effect, it may take several weeks for full effect to take effect. Increase Riboflavin to 400mg daily in the morning Adjust Magnesium to 500 mg daily at bedtime Start Propranolol ER 60 mg daily at bedtime. Potential side effects include but are not limited to fatigue, lightheadedness, low blood pressure, low heart rate, asthma/respiratory disease exacerbation, weight gain, hair loss, sexual dysfunction. Previous migraine prevention medication trials: None other. Migraine prevention medication contraindications: Topiramate due to history of kidney stones Case discussed with Dr Sylvie Joy. Will follow-up upon review of above and patient to follow-up in clinic in 3-6 months or sooner prn. Orders: Orders MR head/brain wo/w con 11/29/24 R51.9 - Headache, unspecified, G93.9 - Disorder of brain, unspecified Rheumatoid Factor 11/29/24 R51.9 - Headache, unspecified, G93.9 - Disorder of brain, unspecified, R20.2 - Paresthesia of skin Complete Blood Count Auto Diff 11/29/24 R51.9 - Headache, unspecified, I10 - Essential (primary) hypertension, E66.01 - Morbid (severe) obesity due to excess calories, Z68.41 - Body mass index [BMI] 40.0-44.9, adult, G93.9 - Disorder of brain, unspecified, R20.2 - Paresthesia of skin, D64.9 - Anemia, unspecified Ferritin 11/29/24 R51.9 - Headache, unspecified, I10 - Essential (primary) hypertension, E66.01 - Morbid (severe) obesity due to excess calories, Z68.41 - Body mass index [BMI] 40.0-44.9, adult, G93.9 - Disorder of brain, unspecified, R20.2 - Paresthesia of skin, D64.9 - Anemia, unspecified TSH reflex Free T4 11/29/24 R51.9 - Headache, unspecified, I10 - Essential (primary) hypertension, E66.01 - Morbid (severe) obesity due to excess calories, Z68.41 - Body mass index [BMI] 40.0-44.9, adult, G93.9 - Disorder of brain, unspecified, R20.2 - Paresthesia of skin, D64.9 - Anemia, unspecified XR cervical spine w flex/ext 11/29/24 M54.2 - Cervicalgia PATRICIA Reflex Titer and Pattern 11/29/24 R51.9 - Headache, unspecified, M25.521 - Pain in right elbow, M25.522 - Pain in left elbow Vitamin B12 and Folate 11/29/24 R51.9 - Headache, unspecified, I10 - Essential (primary) hypertension, E66.01 - Morbid (severe) obesity due to excess calories, Z68.41 - Body mass index [BMI] 40.0-44.9, adult, G93.9 - Disorder of brain, unspecified, R20.2 - Paresthesia of skin, D64.9 - Anemia, unspecified Vitamin B6 11/29/24 D64.9 - Anemia, unspecified, R51.9 - Headache, unspecified, I10 - Essential (primary) hypertension, E66.01 - Morbid (severe) obesity due to excess calories, Z68.41 - Body mass index [BMI] 40.0-44.9, adult, G93.9 - Disorder of brain, unspecified, R20.2 - Paresthesia of skin IRON PROFILE 11/29/24 D64.9 - Anemia, unspecified, R51.9 - Headache, unspecified, I10 - Essential (primary) hypertension, E66.01 - Morbid (severe) obesity due to excess calories, Z68.41 - Body mass index [BMI] 40.0-44.9, adult, G93.9 - Disorder of brain, unspecified, R20.2 - Paresthesia of skin Hemoglobin A1c 11/29/24 R51.9 - Headache, unspecified, I10 - Essential (primary) hypertension, E66.01 - Morbid (severe) obesity due to excess calories, Z68.41 - Body mass index [BMI] 40.0-44.9, adult, G93.9 - Disorder of brain, unspecified, R20.2 - Paresthesia of skin, D64.9 - Anemia, unspecified Homocysteine 11/29/24 R51.9 - Headache, unspecified, I10 - Essential (primary) hypertension, E66.01 - Morbid (severe) obesity due to excess calories, Z68.41 - Body mass index [BMI] 40.0-44.9, adult, G93.9 - Disorder of brain, unspecified, R20.2 - Paresthesia of skin, D64.9 - Anemia, unspecified Methylmalonic Acid 11/29/24 R51.9 - Headache, unspecified, I10 - Essential (primary) hypertension, E66.01 - Morbid (severe) obesity due to excess calories, Z68.41 - Body mass index [BMI] 40.0-44.9, adult, G93.9 - Disorder of brain, unspecified, R20.2 - Paresthesia of skin, D64.9 - Anemia, unspecified Medications: New riboflavin (vitamin B2) 400 mg PO DAILY 30 tabs 6RF 30 days propranolol ER 60 mg PO BEDTIME 30 caps 3RF 30 days ubrogepant (Ubrelvy) take at onset of migraine, may repeat in 2hrs (may take w/ Ibuprofen) 50 - 100 mg (0.5 - 1 x 100 mg) PO ONCE PRN 16 tabs 3RF migraine headache 30 days baclofen 5 - 10 mg (1 - 2 x 5 mg) PO BEDTIME PRN 60 tabs 3RF muscle spasm 30 days Changed From magnesium oxide 250 mg PO BID 30 days 60 tabs 1RF G43.809 - Other migraine, not intractable, without status migrainosus, R51.9 - Headache, unspecified To magnesium oxide 500 mg (2 x 250 mg magnesium) PO BEDTIME 180 tabs 1RF 90 days G43.809 - Other migraine, not intractable, without status migrainosus, R51.9 - Headache, unspecified From miscellaneous medical supply As directed 1 ea 0RF I10 - Essential (primary) hypertension To miscellaneous medical supply (Blood Pressure Cuff) As directed 1 ea 0RF I10 - Essential (primary) hypertension Discontinued azithromycin Discontinued Reason: Patient Completed Course For 250 mg dose pack: take 500 mg today (day 1), then 250 mg for 4 days (days 2-5) PO 6 tabs 0RF J01.10 - Acute frontal sinusitis, unspecified riboflavin (vitamin B2) Discontinued Reason: Doctor's Order 50 mg PO DAILY 90 tabs 1RF G43.809 - Other migraine, not intractable, without status migrainosus, R51.9 - Headache, unspecified Coding Level of Care Code New Pt Level 4 (76087) Diagnoses Worsening headaches R51.9 Chronic migraine without aura G43.709 Cervical spine pain M54.2 Primary hypertension I10 Hypertension type: primary hypertension
== END 2024-11-29 12:16 | disposition home or self-care (01) ==
LOC: HO.HSMS 10:18
PROVIDERS: PCP Physician Assistant; Visit Provider Nurse Practitioner Family
DX: R51.9 Headache, unspecified (principal); G43.709 Chronic migraine without aura, not intractable, without status migrainosus; M54.2 Cervicalgia; I10 Essential (primary) hypertension
CPT/HCPCS: 99204

== ENCOUNTER → 2024-11-29 10:18 | Outpatient (BNVA) | payer OTHER, SELFPAY | PROVIDERS: PCP Physician Assistant; Visit Provider Nurse Practitioner Family | DX: G43.709 Chronic migraine without aura, not intractable, without status migrainosus (principal); M54.2 Cervicalgia; I10 Essential (primary) hypertension | CPT/HCPCS: 99202 ==

== ENCOUNTER 2024-12-19 11:38 | Outpatient (REF) | payer OTHER, SELFPAY ==
[2024-12-19 11:58] LABS: MANUAL DIFF FLAG NO
[2024-12-19 12:32] LABS: Hematocrit 45.9 % (37.0-47.0); Hemoglobin 14.4 g/dl (12.0-16.0); Imm Gran Abs Auto 0.02 X10*3/uL (0.00-0.03); Imm Gran Pct Auto 0.3 % (0.0-0.4); Lymphocytes Absolute Auto 1.9 X10*3/uL (1.2-4.9); Mean Corpuscular HGB Conc 31.4 g/dl (31.0-35.0); Mean Corpuscular Hemoglobin 24.1 pg (27.0-33.0); Mean Corpuscular Volume 76.8 fL (80.0-98.0); NRBC Abs Auto 0.000 X10*3/uL (0.0-0.012); NRBC Pct Auto 0.0 /100WBC (0.0-0.2); Platelet Count 361 X10*3/uL (160-400); Red Blood Count 5.98 X10*6/uL (4.20-5.50); White Blood Count 6.3 X10*3/uL (4.8-10.8)
[2024-12-19 12:43] LABS: Hemoglobin A1C 137.9587 umol/L; Total Hemoglobin (HGBA1C) 3722.0551 umol/L
[2024-12-19 13:09] LABS: Iron 89 mcg/dL (30-160); Percent Iron Saturation 24 % (15-50); Total Iron Binding Capacity 377 mcg/dL (228-428); Unsaturated Iron Binding 288 ug/dL
[2024-12-19 13:26] LABS: Ferritin 9 ng/mL (10-122)
[2024-12-19 13:37] LABS: Folate 10.4 ng/mL (> or = 4.0); Vitamin B12 674 pg/mL (200-900)
[2024-12-26 11:13] LABS: Anti Nuclear Antibody Pattern Nuclear Envelope; Anti Nuclear Antibody Screen POSITIVE (NEGATIVE); Anti Nuclear Antibody Titer 1:40 titer
== END 2024-12-19 11:39 | disposition home or self-care (01) ==
LOC: HO.LAB 11:38
PROVIDERS: Absent Provider Nurse Practitioner Family; PCP Physician Assistant; Visit Provider Physician Assistant
DX: R51.9 Headache, unspecified (principal); G93.9 Disorder of brain, unspecified; R20.2 Paresthesia of skin; I10 Essential (primary) hypertension; E66.01 Morbid (severe) obesity due to excess calories; Z68.41 Body mass index [BMI] 40.0-44.9, adult; D64.9 Anemia, unspecified; M25.521 Pain in right elbow; M25.522 Pain in left elbow; Z13.1 Encounter for screening for diabetes mellitus
CPT/HCPCS: 36415; 82607; 82728; 82746; 83036; 83090; 83540; 83921; 84207; 84443; 85025; 86038; 86039; 86431

== ENCOUNTER 2024-12-25 10:27 | Outpatient (AMB) | payer OTHER, SELFPAY ==
--- NOTE | 2024-12-25 10:36 | MHC.PC.OV ---
Vital Signs 12/25/24 10:38 Height 4 ft Weight 145 lb 4 oz BMI 44.3 BP 132/90 H Blood Pressure Location Lt brachial Position Sitting Pulse 82 Pulse Source Pulse Oximeter Temp 97.3 F Temp Source Temporal Artery Scan Pulse Oximetry (%) 97 Oxygen Delivery Method Room Air Intake Visit Reasons: Annual Exam Intake Note: Patient is here today for a physical. Unattended Ground Sensor Specialist Required: No Hepatologist: Not Required per policy Accompanied by: Self / Same As Patient Allergies No Known Allergies Allergy (Verified 12/25/24 11:08) Medication List - Last Reconciled 12/25/24 by Lisandro James PA-C albuterol sulfate 90 mcg/actuation 1 inh inhalation QID PRN 30 days allopurinol 100 mg PO DAILY baclofen 5 - 10 mg (1 - 2 x 5 mg) PO BEDTIME PRN 30 days celecoxib (Celebrex) 200 mg PO DAILY 15 days diclofenac sodium 3% 1 appl topical BID 30 days fluticasone propionate 50 mcg/actuation 1 spray intranasal BID hyoscyamine sulfate 0.125 mg PO QID PRN lisinopril-hydrochlorothiazide 10-12.5 mg 1 tab PO DAILY 30 days loratadine 10 mg PO DAILY 90 days magnesium oxide 500 mg (2 x 250 mg magnesium) PO BEDTIME 90 days miscellaneous medical supply (Blood Pressure Cuff) As directed norethindrone (contraceptive) (Magda) 0.35 mg PO DAILY 90 days omeprazole 20 mg PO DAILY propranolol ER 60 mg PO BEDTIME 30 days pyridoxine (vitamin B6) 100 mg PO DAILY riboflavin (vitamin B2) 400 mg PO DAILY 30 days ubrogepant (Ubrelvy) 50 - 100 mg (0.5 - 1 x 100 mg) PO ONCE PRN 30 days valacyclovir (Valtrex) 1,000 mg PO BID 10 days Tobacco use date assessed: 12/25/24 Dental Screening Dental Screen Date: 06/27/24 HPI Annual Exam HPI Details Patient is a 39-year-old female here today a routine annual physical ? Patient's past medical history significant for nephrolithiasis, hypertension , obesity,. Concern--> she reports having tonsil stones for many years though has become more frequent as of late. She reports having halitosis along with occurrences of these tonsil stones. She has not had any throat infections. Bilateral epicondylitis: Has been better since taking Celebrex. 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 Has gotten injections and has done therapy which have only gave minimal relief. She does report diclofenac 3% gel has been helpful on her elbows. Hypertension:? Blood pressure today in office slightly elevated, she reports she did not take her blood pressure medication today. Patient continues on lisinopril hydrochlorothiazide with good effect. .. Migraines: She is followed by [place] neurologist. Was to start propranolol and Ubrevly though has not started these medications yet. Reports migraines are still evident in on nearly every day basis. She does use sumatriptan 25 mg an as needed basis. She was told to follow up with Neurology as she continues to headaches even when her blood pressure is now under control. She reports her headaches are mostly in the back side of her head that radiate into her parietal and temporal regions. Concerns here for possible neck issue. Will get x-rays of neck and try physical therapy. Has underwent 2 brain MRIs without a need significant intracranial pathology. .. Nephrolithiasis: Followed by [facility], is under surveillance with renal ultrasounds for her kidney stones. 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 VAccine: Declines flu, UTD with COVID vaccine and Tdap. [facility] Medical History Migraine BPPV (benign paroxysmal positional vertigo) Asthma Osteoarthritis History of abnormal cervical Pap smear History of dwarfism GERD (gastroesophageal reflux disease) Leiomyoma HSV-1 (herpes simplex virus 1) infection HTN (hypertension) Kidney calculi Surgical History History of lithotripsy History of surgery Family History Mother No problems noted. Father No problems noted. Social History Housing: Apartment Alcohol intake: current Alcohol intake frequency: does not drink Patient Tobacco Use Status: Never used Tobacco e-Cigarette/Vaping Use: Never Used Second Hand Smoke Exposure: No service: No Current occupational status: disabled Cognitive needs: No Hearing needs: No Vision needs: Yes Female Reproductive History Menstrual Age of Menarche: 14 Questionnaire PHQ-9 Over the last 2 weeks, how often have you been bothered by any of the following problems? 1. Little interest or pleasure in doing things: not at all 2. Feeling down, depressed, or hopeless: not at all 3. Trouble falling or staying asleep, or sleeping too much: several days 4. Feeling tired or having little energy: several days 5. Poor appetite or overeating: not at all 6. Feeling bad about yourself - or that you are a failure or have let yourself or your family down: not at all 7. Trouble concentrating on things, such as reading the newspaper or watching television: not at all 8. Moving or speaking so slowly that other people could have noticed. Or the opposite - being so fidgety or restless that you have been moving around a lot more than usual: not at all 9. Thoughts that you would be better off or of hurting yourself in some way: not at all Total score: 2 Depression Screening Interpretation: Positive Depression Screening Follow-up: Existing condition Depression Screening Done: Yes 81939 - PHQ-9 Billing: Yes Source: Developed by Drs. Vinod Love, Mica Baez, Jarad Apple and colleagues, with an educational jose from [employer] Thrive Questionnaire Date Thrive assessed: 06/27/24 I am a: Patient What is your living situation today?: I have a steady place to live Within the past 12 months, did the food you bought not last and you didn't have the money to get more?: Sometimes True Within the past 12 months, did you worry whether your food would run out before you got money to buy more?: Never true Do you have trouble paying for medicines?: No Do you have trouble getting transportation to medical appointments?: No Do you have trouble paying your heating and electricity bill?: No Do you have trouble taking care of your child, family member or friend?: No Do you have trouble with day-to-day activities such as bathing, preparing meals, shopping, managing finances, etc.?: Yes Are you currently unemployed and looking for a job?: No Are you interested in more education?: No Please select the resources that you would like help with: None Currently or been in a relationship where the following occur: No concerns reported THRIVE Score: 1 AUDIT C Alcohol Use Questionnaire (AUDIT-C) 1. How often do you have a drink containing alcohol?: Monthly or less Total Score: 1 WILLARD-7 AMB Questionnaire WILLARD-7 Date WILLARD - 7 assessed: 12/25/24 Feeling nervous, anxious, or on edge: 0 = Not at all Not being able to stop or control worryin = Not at all Worrying too much about different things: 0 = Not at all Trouble relaxin = Not at all Being so restless that it is hard to sit still: 0 = Not at all Becoming easily annoyed or irritable: 0 = Not at all Feeling afraid as if something awful might happen: 0 = Not at all Total WILLARD-7 score (0-4 normal; 5-9 mild; 10-14 moderate; 15-21 severe): 0 Source: Developed by Drs. Vinod Love, Mica Baez, Jarad Apple and colleagues, with an educational jose from [employer] WILLARD-7 Assessment Billing WILLARD-7 Assessment Tool: WILLARD-7 Assessment 49036 Review of Systems Const Denies body aches, Denies chills, Denies excessive sweating, Denies fatigue, Denies fever(s) and Denies headache(s) Eyes Denies blurry vision ENT Denies dysphagia, Denies vertigo, Denies dizziness, Denies headache(s), Denies hearing loss and Denies tinnitus Card Denies chest pain, Denies chest pain with activity, Denies syncope, Denies irregular heart rhythm and Denies dyspnea Resp Denies chest congestion, Denies cough, Denies hemoptysis, Denies dyspnea and Denies wheezing GI Denies abdominal pain, Denies melena, Denies hematochezia, Denies coffee ground emesis, Denies dysphagia, Denies diarrhea, Denies nausea and Denies vomiting Denies urinary frequency, Denies dysuria, Denies urinary hesitancy and Denies urinary urgency Musc Denies arthralgias, Denies limited range of motion, Denies muscle cramps and Denies muscle weakness Skin/Breast Denies rash and Denies skin ulcer Neuro Denies Abnormal speech present, Denies confusion, Denies vertigo, Denies dizziness, Denies syncope, Denies headache(s), Denies memory loss and Denies seizure-like activity Psych Denies anxiety, Denies confusion, Denies depression, Denies memory loss, Denies panic attacks and Denies paranoia Endo Denies excessive sweating, Denies fatigue, Denies flushing, Denies polydipsia and Denies polyuria Aller/Immun Denies wheezing Physical exam (Primary Care) Vital Signs: Last Vital Signs Temp 97.3 F 12/25/24 10:38 Pulse 82 12/25/24 10:38 BP 132/90 H 12/25/24 10:38 Pulse Ox 97 12/25/24 10:38 Oxygen Delivery Method Room Air 12/25/24 10:38 BMI result Body Mass Index 44.3 BMI Assessment/Plan discussion: High BMI High, discussed plan: lifestyle, weight reduction, dietary and physical activity Tobacco/Smoking Status: Tobacco use Status Tobacco use date assessed 12/25/24 12/25/24 10:38 Patient Tobacco Use Status Never used Tobacco 12/25/24 10:38 e-Cigarette/Vaping Use Never Used 12/25/24 10:38 PHQ-9: PHQ-9 Score PHQ-9: Total score 2 12/25/24 10:38 Depression Screening Interpretation: Positive Depression Screening Follow-up: Existing condition Thrive Assessment: Date of Thrive Assessment Date Thrive assessed 06/27/24 12/25/24 10:38 Currently or been in a relationship where the following occur: No concerns reported Const General: cooperative, comfortable, no acute distress, alert and awake; No confusion Orientation/consciousness: oriented to person, oriented to place, patient oriented x3 and No confusion HENMT Head: Yes normocephalic Ears: external ears normal and TM's normal bilaterally Face and sinus: No sinus tenderness Mouth: Normal oral and palatal mucosa present and tongue normal Teeth and gingiva: dentition normal and gingiva normal Throat: Yes posterior oropharynx normal, Yes tonsils normal and Yes uvula midline Eyes Conjunctivae: conjunctivae normal Sclerae: sclerae normal Pupils: Equal, round and reactive pupils present EOM: EOMs intact bilaterally Direct Ophthalmoscopy: No no photophobia Neck Neck: Yes no lymphadenopathy, No tender and Yes no JVD Thyroid: Thyroid normal Carotids: no bruits Chest Chest palpation & inspection: no tenderness Resp Effort & Inspection: normal respiratory effort, no audible wheezes, not labored and no stridor Auscultation: no crackles, no rales, no rhonchi and no wheezes Cardio Jugular venous distension: no JVD Rate: regular rate, not bradycardic and not tachycardic Rhythm: regular rhythm Bruits: no carotid bruits Peripheral pulses: Peripheral pulses 2+ throughout GI Inspection: Yes normal to inspection, No abdominal wall ecchymosis and No visible herniation Palpation (GI): Soft to palpation, nontender, no guarding, not rigid and No hepatosplenomegaly present Auscultation: normoactive bowel sounds General: Yes no CVA tenderness Back/Spine/Pelvis Back: no CVA tenderness and No back tenderness Cervical Spine: cervical ROM normal Thoracic/Lumbar Spine: thoracic and lumbar spine normal to inspection, straight leg raise negative bilaterally, No thoraco-lumbar ROM limited and No lumbar spinal tenderness Skin Lesions: no lesions Rashes: no rashes Wounds: no wounds Neuro General: oriented to person, oriented to place, patient oriented x3, CN's II-XI intact bilaterally and No confusion Cranial nerves: Yes Equal, round and reactive pupils present and Yes Normal accommodation reflex present Cognition (Neuro): normal cognition Speech: No Abnormal speech present Gait exam (Neuro): Normal gait present Motor exam (neuro): 5/5 motor strength present throughout Extrem Right upper extremity: full ROM; no cyanosis Left upper extremity: full ROM; no cyanosis Right lower extremity: no edema Left lower extremity: no edema Psych Appearance: grossly normal Mental Status: mental status grossly normal Affect: normal affect Attitude: cooperative Thought process: Normal thought process present Coding Level of Care Code Est Pt Prev Care 18-39y(56431) Diagnoses Annual physical exam Z00.00 Primary hypertension I10 Hypertension type: primary hypertension Medial epicondylitis of both elbows M77.01; M77.02 Tonsillolith J35.8 CAROLYN (obstructive sleep apnea) G47.33 Class 3 obesity E66.813 Additional Codes WILLARD-7 Assessment Billing - WILLARD-7 Assessment Tool: WILLARD-7 Assessment [id number] ([id number]) PHQ-9 - 38232 - PHQ-9 Billing: Yes ([id number]) Assessment & Plan Assessment & Plan (1) Annual physical exam: Code(s): Z00.00 - Encounter for general adult medical examination without abnormal findings Category: Medical Plan: As per HPI (2) HTN (hypertension): Code(s): I10 - Essential (primary) hypertension Category: Medical Qualifiers: Hypertension type: primary hypertension Qualified Code(s): I10 - Essential (primary) hypertension Plan: Patient's blood pressure slightly elevated today in office. Will continue her current dose of lisinopril hydrochlorothiazide which seems to helped her blood pressure closely. Goal blood pressures to be below 140/90 (3) Medial epicondylitis of both elbows: Code(s): M77.01 - Medial epicondylitis, right elbow; M77.02 - Medial epicondylitis, left elbow Category: Medical Plan: Patient continues to have bilateral elbow pain. 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 Has seen specialist and has done physical therapy in the past with only limited amount of relief. Has gotten injections in the past as well. She does report diclofenac 3% gel has been helpful (4) Tonsillolith: Code(s): J35.8 - Other chronic diseases of tonsils and adenoids Category: Medical Plan: Patient reports recurrent tonsil list that become more frequent as of late with halitosis. Suspect she may have mild sleep apnea thus will send for sleep study to confirm. Otherwise advised on using sour candies when she starts to get a sore throat (5) CAROLYN (obstructive sleep apnea): Code(s): G47.33 - Obstructive sleep apnea (adult) (pediatric) Category: Medical Plan: As above (6) Class 3 obesity: Code(s): E66.813 - Obesity, class 3 Category: Medical Plan: Patient does understand her BMI is over 40 and will work on being more physically active and adapting to better eating habits to reduce her weight. Orders: Orders RT home sleep study Today G47.33 - Obstructive sleep apnea (adult) (pediatric) Comprehensive [place]. Panel Fast Today I10 - Essential (primary) hypertension Complete Blood Count no Diff Today I10 - Essential (primary) hypertension Microalbumin, Random (w Creat) Today I10 - Essential (primary) hypertension
[2024-12-25 10:38] VITALS: BP 132/90; PULSE 82; TEMP 36.3; O2SAT 97; BMI 44.3
== END 2024-12-25 11:26 | disposition home or self-care (01) ==
LOC: HO.HMCH 10:28
PROVIDERS: PCP Physician Assistant; Visit Provider Physician Assistant
DX: Z00.00 Encounter for general adult medical examination without abnormal findings (principal); I10 Essential (primary) hypertension; E66.813 Obesity, class 3; Z68.41 Body mass index [BMI] 40.0-44.9, adult; M77.01 Medial epicondylitis, right elbow; M77.02 Medial epicondylitis, left elbow; J35.8 Other chronic diseases of tonsils and adenoids; G47.33 Obstructive sleep apnea (adult) (pediatric)

== ENCOUNTER → 2024-12-25 10:27 | Outpatient (BNVA) | payer OTHER, SELFPAY | PROVIDERS: PCP Physician Assistant; Visit Provider Physician Assistant | DX: Z00.00 Encounter for general adult medical examination without abnormal findings (principal); I10 Essential (primary) hypertension; G43.909 Migraine, unspecified, not intractable, without status migrainosus; M77.01 Medial epicondylitis, right elbow; M77.02 Medial epicondylitis, left elbow; J35.8 Other chronic diseases of tonsils and adenoids; G47.33 Obstructive sleep apnea (adult) (pediatric); E66.813 Obesity, class 3; Z68.41 Body mass index [BMI] 40.0-44.9, adult; Z87.442 Personal history of urinary calculi | CPT/HCPCS: 96127 ==

== ENCOUNTER 2025-01-02 12:35 | Outpatient (REF) | payer OTHER, SELFPAY ==
--- NOTE | ~2025-01-02 | MR_ITS ---
EXAMINATION: MR BRAIN WITHOUT AND WITH CONTRAST CLINICAL INFORMATION: Headache, unspecified. COMPARISON: May 23, 2024. TECHNIQUE: Multiplanar, multisequence MRI of the brain was obtained before and after the intravenous administration of 6.5 mL gadolinium based (Gadavist) without reported immediate complications. FINDINGS: Patient's motion artifact. No restricted diffusion. No abnormal enhancement in the intra-axial or the extra-axial compartments of the cranium. No acute intracranial hemorrhage, mass effect, midline shift, hydrocephalus or herniation. Blanchard-white matter differentiation is normal. Posterior cranial fossa contents demonstrated no signal abnormality or abnormal enhancement. Nonspecific nonenhancing no restricted diffusion T2 FLAIR signal in the deep white matter, left frontal lobe. Sellar/suprasellar region demonstrated no signal abnormality or masses. Normal position of the cerebellar tonsils. Flow-void signal within the main cerebral vessels is normal. There is prominence of the palatine tonsils and retropharyngeal lymph nodes with associated restricted diffusion suggesting increasing cellularity. Nonspecific small intraparenchymal lymph nodes, parotid glands. MR/MR head/brain wo/w con IMPRESSION: Stable nonenhancing subcentimeter T2 FLAIR signal, white matter left frontal lobe. Stable. No acute brain abnormality. No abnormal enhancement. Electronically signed by: Nadeem Contreras MD 01/02/2025 02:27 PM EDT
== END 2025-01-02 12:36 | disposition home or self-care (01) ==
LOC: HO.MRI 12:35
PROVIDERS: PCP Physician Assistant; Visit Provider Nurse Practitioner Family
DX: R51.9 Headache, unspecified (principal); G93.9 Disorder of brain, unspecified
CPT/HCPCS: 70553; A9585

== ENCOUNTER → 2025-01-02 12:41 | Outpatient (BNV) | payer OTHER, SELFPAY | PROVIDERS: PCP Physician Assistant; Visit Provider Radiology Diagnostic Radiology | DX: R51.9 Headache, unspecified (principal) | CPT/HCPCS: 70553 ==

== ENCOUNTER 2025-01-21 12:27 | Outpatient (REF) | payer OTHER, SELFPAY ==
--- NOTE | ~2025-01-21 | US_ITS ---
EXAMINATION: US RETROPERITONEAL LIMITED (RENAL ONLY) CLINICAL INFORMATION: Calculus of kidney. COMPARISON: July 13, 2023. Correlated to CT abdomen dated February 13, 2024. TECHNIQUE: Real-time ultrasound kidneys using grayscale and color Doppler technique FINDINGS: RIGHT KIDNEY: 10 x 4 x 5 cm (SAG x AP x TRV). Normal echotexture. Normal renal cortical thickness. No hydronephrosis. No solid or cystic lesion. LEFT KIDNEY: 10 x 3 x 4 cm (SAG x AP x TRV). Normal echotexture. Multiple renal cortical thickness. No hydronephrosis. There is a 5 mm hyperechoic structure in the mid portion. US/US renal BI IMPRESSION: Probable 5 mm nonobstructing nephrolithiasis, left kidney.. Electronically signed by: Nadeem Contreras MD 01/21/2025 01:03 PM EDT
== END 2025-01-21 12:28 | disposition home or self-care (01) ==
LOC: HO.US 12:27
PROVIDERS: PCP Physician Assistant; Visit Provider Urology
DX: N20.0 Calculus of kidney (principal)
CPT/HCPCS: 76775

== ENCOUNTER → 2025-01-21 13:00 | Outpatient (BNV) | payer OTHER, SELFPAY | PROVIDERS: PCP Physician Assistant; Visit Provider Radiology Diagnostic Radiology | DX: N20.0 Calculus of kidney (principal) | CPT/HCPCS: 76775 ==

== ENCOUNTER 2025-01-31 11:24 | Outpatient (REF) | payer OTHER, SELFPAY | END 2025-01-31 11:25 | disposition home or self-care (01) | LOC: HO.LAB 11:24 | PROVIDERS: PCP Physician Assistant; Visit Provider Advanced Practice Midwife | DX: Z01.419 Encounter for gynecological examination (general) (routine) without abnormal findings (principal); N64.4 Mastodynia; N63.10 Unspecified lump in the right breast, unspecified quadrant; R10.2 Pelvic and perineal pain; Z20.2 Contact with and (suspected) exposure to infections with a predominantly sexual mode of transmission; Z12.31 Encounter for screening mammogram for malignant neoplasm of breast | CPT/HCPCS: 81003; 99212; 99395 ==

== ENCOUNTER 2025-01-31 11:24 | Outpatient (AMB) | payer OTHER, SELFPAY ==
--- NOTE | 2025-01-31 11:24 | A.OFFVIS_ITS ---
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 Pretzel Twister concerns: She reports right breast pain and a lump x 1 month, no nipple discharge, injuries or prior breast surgeries. Additionally has pain w/urination on the left pelvis and when she eats. Has follow up US for 02/06/25 for fibroids. Doing well on POP's. headaches only when bleeding is heavier. Hx. migraines. She tries to eat healthy and stays active with exercise. Denies family history of breast or colon cancer. FH ovarian cancer. Last pap smear 2022, negative. [facility] Medical History (Updated 01/31/25 @ 12:26 by Rossana Brice CNM) Encounter for screening for malignant neoplasm of breast Breast pain Breast lump Migraine BPPV (benign paroxysmal positional vertigo) Asthma Osteoarthritis History of abnormal cervical Pap smear History of dwarfism GERD (gastroesophageal reflux disease) Leiomyoma HSV-1 (herpes simplex virus 1) infection HTN (hypertension) Kidney calculi Surgical History History of lithotripsy History of surgery Family History Mother No problems noted. Father No problems noted. Paternal Grandmother Ovarian cancer Social History Housing: Apartment Alcohol intake: current Alcohol intake frequency: does not drink Patient Tobacco Use Status: Never used Tobacco e-Cigarette/Vaping Use: Never Used Second Hand Smoke Exposure: No service: No Current occupational status: disabled Cognitive needs: No Hearing needs: No Vision needs: Yes Female Reproductive History Menstrual Age of Menarche: 14 Duration of menses: 3-5 days Date of last menstrual period: 01/20/25 control method: pills Total pregnancies: 0 Date of last pap smear: 11/09/22 (neg pap and hpv) History of abnormal pap smear: Yes (3/15 lgsil 5/16 lgsil 19 +hpv 8 colpo ) Review of Systems Const All systems reviewed & are unremarkable except as noted in HPI and below Reports as per HPI Eyes Reports no additional complaints ENT Reports no additional complaints Card Reports no additional complaints Resp Reports no additional complaints GI Reports as per HPI and Reports no additional complaints Reports as per HPI Musc Reports no additional complaints Skin/Breast Reports as per HPI Neuro Reports no additional complaints Psych Reports no additional complaints Endo Reports no additional complaints Mohit/Lymph Reports no additional complaints Aller/Immun Reports no additional complaints Physical Exam Vital Signs: Last Vital Signs BP 116/72 01/31/25 11:26 BMI result Body Mass Index 44.2 Const General: cooperative, healthy appearing, no acute distress, well developed and alert Orientation/consciousness: patient oriented x3 HEENT Head: Yes normal to inspection Eyes General: appearance normal, both eyes and all related structures Neck Neck: Yes normal visual inspection Thyroid: Thyroid normal Chest Chest palpation & inspection: normal inspection of the chest and other (no puckering, dimpling, peau de orange, retraction, discharge, masses) Breast/axilla inspection: normal inspection of the breasts Breast/axilla palpation: normal palpation of the breasts Resp Effort & Inspection: normal respiratory effort GI Inspection: Yes normal to inspection Palpation (GI): Soft to palpation Rectal Exam - Female: deferred General: Yes bladder normal to palpation External Female Exam: normal external appearance and normal appearance of the urethra Speculum Exam - Vagina: normal appearance of the vagina, normal palpation and normal vaginal discharge Speculum Exam - Cervix: normal appearance of the cervix and normal palpation Bimanual exam- vagina & uterus: normal bimanual exam, normal palpation, uterine size normal, bladder normal to palpation, normal palpation and non-tender Bimanual Exam- Adnexa, other: no masses and tender (slightly) on the right Skin General skin exam: no rashes or lesions noted Rashes: no rashes Neuro General: patient oriented x3 Cognition (Neuro): normal cognition Extrem General: Yes normal to inspection Psych Attitude: cooperative Thought process: Normal thought process present Results AMB Urinalysis, Automated UA Leukoctes 0 Jeff/uL Last Edit by BREANNE Bowser on 01/31/25 12:04 UA Nitrite Negative Last Edit by BREANNE Bowser on 01/31/25 12:04 UA Urobilinogen 0 mg/dL Last Edit by Wen Gil A on 01/31/25 12:0 4 UA Protein 0 mg/dL Last Edit by Wen Gil A on 01/31/25 12:04 UA pH 6.0 Last Edit by Wen Gil A on 01/31/25 12:04 UA Blood 0 Obey/uL Last Edit by Wen Gil A on 01/31/25 12:04 UA Specific Zortman 1.015 Last Edit by Wen Gil A on 01/31/25 12:04 UA Ketone Negative Last Edit by Wen Gil [facility] on 01/31/25 12:04 UA Bilirubin 0 mg/dL Last Edit by Wen Gil A on 01/31/25 12:04 UA Glucose 0 mg/dL Last Edit by Wen Gil [facility] on 01/31/25 12:04 Results Reviewed Results Reviewed: Laboratory Last Values Urine pH (Auto) 6.0 01/31/25 11:55 Specific Zortman (Auto) 1.015 01/31/25 11:55 Urine Protein (Auto) 0 mg/dL 01/31/25 11:55 Glucose (UA)(Auto) 0 mg/dL 01/31/25 11:55 Urine Ketones (Auto) Negative 01/31/25 11:55 Urine Blood (Auto) 0 Obey/uL 01/31/25 11:55 Urine Nitrite (Auto) Negative 01/31/25 11:55 Urine Bilirubin (Auto) 0 mg/dL 01/31/25 11:55 Urine Urobilinogen (Auto) 0 mg/dL 01/31/25 11:55 Leukocyte Esterase (Auto) 0 Jeff/uL 01/31/25 11:55 Assessment & Plan Assessment & Plan (1) Encounter for well woman exam with routine gynecological exam: Code(s): Z01.419 - Encounter for gynecological examination (general) (routine) without abnormal findings Category: Medical Plan: Discussed: Current recommendations for pap smears per ASCCP guidelines. Breast awareness and periodic breast exams. control hormone use warnings: go to ER if and loss of vision, blindness, severe headache, chest pain or difficulty breathing, severe abdominal pain, or any pain or swelling in an extremity. Plan to hold off on taking her control pills until the breast lump has been evaluated. Informed there are certain breast cancers that grow aggressively with hormone use, she prefers to hold dosing until evaluation is completed. Patient verbalizes understanding and agrees to the plan of care. Maintain a healthy lifestyle including a well balanced diet and routine exercise. Use condoms for STI and prevention. She was given opportunity to ask questions and all questions were answered to the best of my ability. RTO in one year for annual jamb cutter examination. Total time I personally spent on visit and management today: ?20 minutes. Time spent included review of pertinent office notes in the electronic health record; review of laboratory and imaging results; review of personal family medical history; performing physical exam; discussing diagnosis and plan of care with the patient; documenting the encounter in the EMR. This note is constructed using voice recognition software. While every effort has been made to ensure accuracy, active directory specialist errors may have been included. (2) Mass of breast: Code(s): N63.0 - Unspecified lump in unspecified breast Category: Medical Qualifiers: Laterality: right Breast mass location: unspecified quadrant Qualified Code(s): N63.10 - Unspecified lump in the right breast, unspecified quadrant Plan: Plan breast ultrasound and mammogram diagnostic study, follow up pending test results. The patient expressed understanding and agreement with the plan of care. All of her questions and concerns were addressed to the best of my ability. (3) Breast pain: Code(s): N64.4 - Mastodynia Category: Medical Plan: Per notes above. (4) Pelvic pain: Code(s): R10.2 - Pelvic and perineal pain Plan GC chlamydia and BV panel obtained. Urine dip is negative today. Keep ultrasound follow up February 06 2025 and call sooner if there is any concerns. The patient expressed understanding and agreement with the plan of care. All of her questions and concerns were addressed to the best of my ability. Orders: Orders Bacterial Vaginosis Panel Today Z20.2 - Contact with and (suspected) exposure to infections with a predominantly sexual mode of transmission CT NG by PCR Vag/Cerv Today Z20.2 - Contact with and (suspected) exposure to infections with a predominantly sexual mode of transmission AMB Urinalysis Automated Today R10.2 - Pelvic and perineal pain US breast RT limited Today N63.0 - Unspecified lump in unspecified breast, N64.4 - Mastodynia MM tomosynthesis diagnostic BI Today N63.0 - Unspecified lump in unspecified breast, N64.4 - Mastodynia, Z12.31 - Encounter for screening mammogram for malignant neoplasm of breast Coding Level of Care Code Est Pt Level 2 (79427) Est Pt Prev Care 18-39y(68234) Diagnoses Encounter for well woman exam with routine gynecological exam Z01.419 Mass of right breast, unspecified quadrant N63.10 Laterality: right Breast mass location: unspecified quadrant Breast pain N64.4 Pelvic pain R10.2
[2025-01-31 11:26] VITALS: BP 116/72; BMI 44.2
== END 2025-01-31 12:01 | disposition home or self-care (01) ==
LOC: HO.HWS 11:24
PROVIDERS: PCP Physician Assistant; Visit Provider Advanced Practice Midwife
DX: Z01.419 Encounter for gynecological examination (general) (routine) without abnormal findings (principal); N63.10 Unspecified lump in the right breast, unspecified quadrant; N64.4 Mastodynia; R10.2 Pelvic and perineal pain
CPT/HCPCS: 99212; 99395; 99459

== ENCOUNTER 2025-01-31 11:47 | Outpatient (REF) | payer OTHER, SELFPAY ==
[2025-01-31 15:43] LABS: Bacterial Vaginosis PCR NEGATIVE (Negative); Candida Group PCR NOT DETECTED (Not Detect); Candida glab krusei PCR NOT DETECTED (Not Detect); Trichomonas vaginalis PCR NOT DETECTED (Not Detect)
[2025-01-31 16:15] LABS: CT PCR NOT DETECTED (Not Detect.); NG PCR NOT DETECTED (Not Detect.)
== END 2025-01-31 11:48 | disposition home or self-care (01) ==
LOC: HO.LNP 11:47
PROVIDERS: Visit Provider Advanced Practice Midwife
DX: Z20.2 Contact with and (suspected) exposure to infections with a predominantly sexual mode of transmission (principal)
CPT/HCPCS: 81515; 87491; 87591

== ENCOUNTER 2025-02-06 10:48 | Outpatient (REF) | payer OTHER, SELFPAY ==
--- NOTE | ~2025-02-06 | US_ITS ---
CLINICAL HISTORY: D25.9 - Leiomyoma of uterus, unspecified US pelvis transvaginal Comparison: 11/30/2023 Findings: Uterus measures 6.2 x 3.2 x 4.4 cm. Subserosal fibroid measuring up to 8 mm versus 9 mm previously Endometrium 2 mm thickness. Right ovary 3.1 x 2.3 x 2.8 cm. Left ovary 3 x 1.8 x 1.5 cm. Partially collapsed dominant right ovarian follicle versus right ovarian cyst measuring up to 27 mm. Nonhomogeneous hypoechoic to isoechoic region measuring up to 2 cm (versus 1.5 cm previously) in the posterior wall of the uterine cervix cannot be accurately characterized.Further characterization with physical exam +/-uterine cervix MRI recommended to rule out mass lesion. No free fluid. IMPRESSION: Nonhomogeneous hypoechoic to isoechoic region measuring up to 2 cm (versus 1.5 cm previously) in the posterior wall of the uterine cervix cannot be accurately characterized.Further characterization with physical exam +/-uterine cervix MRI recommended to rule out mass lesion. No free fluid. This document has been electronically signed by: Keturah Lennon MD on 02/07/2025 10:34:47
== END 2025-02-06 10:49 | disposition home or self-care (01) ==
LOC: HO.US 10:48
PROVIDERS: PCP Physician Assistant; Visit Provider Obstetrics & Gynecology
DX: D25.9 Leiomyoma of uterus, unspecified (principal)
CPT/HCPCS: 76830; 76856

== ENCOUNTER → 2025-02-06 10:51 | Outpatient (BNV) | payer OTHER, SELFPAY | PROVIDERS: PCP Physician Assistant; Visit Provider Radiology Diagnostic Radiology | DX: D25.2 Subserosal leiomyoma of uterus (principal) | CPT/HCPCS: 76830; 76856 ==

== ENCOUNTER 2025-02-11 12:45 | Outpatient (REF) | payer OTHER, SELFPAY ==
--- NOTE | ~2025-02-11 | CT_ITS ---
EXAMINATION: CT ABDOMEN PELVIS WITHOUT IV CONTRAST HISTORY: N20.0 - Calculus of kidney COMPARISON: Comparison is made with the prior examination dated 02/13/2024. TECHNIQUE: CT scan of the abdomen and pelvis was performed without contrast using standard departmental protocol. Coronal and sagittal reformatted images were generated and reviewed. Oral contrast material was not administered per department protocol. This CT exam was performed with one or more of the following dose reduction techniques: automated exposure control, adjustment of the mA and/or kV according to patient size, use of iterative reconstruction technique. DLP: 471 mGy-cm FINDINGS: LOWER CHEST: The visualized lung bases are clear. There is no pleural effusion. CARDIOVASCULATURE: The heart is normal in size. There is no pericardial effusion. LIVER: The liver is normal in size and contour. The liver has an unremarkable unenhanced appearance. GALLBLADDER / BILE DUCTS: The gallbladder is unremarkable. There is no intra or extrahepatic biliary ductal dilatation. SPLEEN: The spleen is normal in size and has an unremarkable unenhanced appearance. PANCREAS: The pancreas has an unremarkable unenhanced appearance. ADRENAL GLANDS: Unremarkable. KIDNEYS/RETROPERITONEUM: There is a 3 mm nonobstructing calculus at the upper pole of the left kidney. No right renal calculi are identified. There is no hydronephrosis or hydroureter. LYMPH NODES: No retroperitoneal lymphadenopathy is identified in the abdomen or pelvis. VASCULATURE: The abdominal aorta is normal in caliber. MESENTERY/PERITONEUM: No free fluid. No masses. There is no free intraperitoneal gas. STOMACH: The stomach is collapsed, limiting evaluation. SMALL BOWEL: The small bowel is normal in caliber. COLON: The colon is unremarkable. APPENDIX: Normal. URINARY BLADDER/PELVIC ORGANS: The urinary bladder is unremarkable. The uterus and ovaries have an unremarkable unenhanced appearance. BONES / SOFT TISSUES: No suspicious bony or soft tissue abnormalities. CT/CT abdomen pelvis wo IV con IMPRESSION: 3 mm nonobstructing left renal calculus. No evidence of ureteral obstruction. Electronically signed by: Vinod Hood MD 02/11/2025 01:56 PM EDT
== END 2025-02-11 12:46 | disposition home or self-care (01) ==
LOC: HO.CT 12:45
PROVIDERS: PCP Physician Assistant; Visit Provider Urology
DX: N20.0 Calculus of kidney (principal); R10.9 Unspecified abdominal pain
CPT/HCPCS: 74176

== ENCOUNTER → 2025-02-11 12:48 | Outpatient (BNV) | payer OTHER, SELFPAY | PROVIDERS: PCP Physician Assistant; Visit Provider Radiology Diagnostic Radiology | DX: N20.0 Calculus of kidney (principal) | CPT/HCPCS: 74176 ==

== ENCOUNTER 2025-04-19 09:31 | Outpatient (AMB) | payer OTHER, SELFPAY ==
--- NOTE | 2025-04-19 09:45 | A.OFFVIS_ITS ---
Intake Visit Reasons: 8m/US/Follow up Intake Note: Patient is present via telehealth for a 8m follow up/US * 01/21 Renal US Urology Med: Vitamin B-6, Vitamin B-2, Allopurinol Antibiotic Allergy: None Blood Thinner: None Promotions Director Required: No Accompanied by: Self / Same As Patient Allergies No Known Allergies Allergy (Verified 05/08/25 11:38) HPI Comments Details: 04/19/25--Teresa is a 40-year-old female who is being followed for nephrolithiasis. She had a renal ultrasound done on 01/21/2025 History of Present Illness The patient is a 40-year-old female presenting with nephrolithiasis. She has been followed for this condition and had a renal ultrasound on January 21, 2025, and a CT scan on February 11, 2025. The CT scan revealed a 3 mm stone in the left kidney, consistent with findings from a year ago, indicating no change in size or position. The patient reported experiencing intermittent pain on the left side, occurring last week. There was no hematuria reported during this episode. 30 minutes spent in review of records pertaining to this visit and discussion with the patient and documentation of this visit. Results - Renal ultrasound (01/21/25): 5 mm stone in the left kidney - CT scan (02/11/25): 3 mm stone in the left kidney, unchanged from previous year Plan 1. Nephrolithiasis - Prescribed Flomax to aid in stone passage if pain recurs, to be taken for 7 to 10 days in the evening. - Advised to maintain high fluid intake during treatment. - Recommended use of extra strength Tylenol or Motrin prn for pain management. - Follow-up scheduled in 10 months to reassess condition. 06/21/24--Telehealth- 24 hr urine. Discussed 24 hour urine results: Total volume 1.10 mL, Calcium 143 mg; Oxalate 23 mg, Sodium 265, Citrate 170 mg. Instructed on importance of fluid intake, Low oxalate diet, discussed urine volume has improved, but urine sodium and calcium increased emphasized the importance of low sodium diet. Will cont to monitor kidney stones. renal US in 8 months. 30 minutes spent in review of records pertaining to this visit and including [id number] discussion with the patient and documentation of this visit. CTAP--02/08/24--two nonobstructing 3 mm calculi in the left kidney. There are no right renal calculi. 04/12/24--FU CT stone protocol 02/13/24--sleeping car service attendant pending. Bernadette is here for follow-up due to kidney stones. She had prior left ESWL. I have reviewed the CT imaging 02/13/2024 there are 2 small kidney stones visualized in the upper and lower pole 2-3 mm. I have discussed results with the patient who states that she still gets intermittent left flank pain which she feels is related to the kidney stones. She has had improvement using a heating pad and [id number] Tylenol. I have discussed options for therapy, conservative monitoring as the stones are small she may pass them versus ureteroscopy laser lithotripsy. I have discussed re-evaluating with a 24 hour urine collection. The patient will hold on any surgical intervention at this time. Will repeat CT stone protocol in 1 year. 08/11/2023--Bernadette is a 38-year-old female who presents today to the office for a telehealth follow-up. (Video attempted) She had a renal ultrasound done 07/13/23. I have reviewed the renal ultrasound that reports a 6 mm nonobstructing stone. The patient previously had a 3 mm stone reported on prior ultrasound and is status post ESWL. I have discussed with the patient that there may be persistent fragments present in the left kidney. She denies any kidney pain or blood in the urine. Plan will be to re-evaluate in about 6 months. Will check with a CT at that time. 06/17/23-- s/p Left ESWL in may. The patient states she has not passsed any stones, She did have pain along the left side about 5 days ago. I will have her use flomax 0.4 mg for 7 days and encouraged increase fluids 03/25/2023?She is followed today for US results, and kidney stones. LV- 03/25/22. The patient states that she was seen in ER recently with abdominal pain and also has had intermittent left flank pain, she feels like the flank pain is due to the kidney stone. I reviewed the ER notes which showed findings was constipation and the patient was given laxative to take which she has not picked up prescribed yet. renal US results from 03/24/2023 revealed nonobstructive 0.3 cm calculus in the upper pole of the left kidney. No calculi or focal parenchymal lesions. No hydronephrosis. KUB X-ray results from 03/24/2023 revealed nonspecific bowel gas pattern. I have reviewed the renal US past reports showed kidney stones, size ranges from 5 mm to 3 mm. 24-hour urine collection results done on 07/05/22: Urine vol- 840 mL, Urine calcium - 19, Urine oxalate was 22, urine citrate was 170, urine sodium was 158. [facility] Medical History Encounter for screening for malignant neoplasm of breast Breast pain Breast lump Migraine BPPV (benign paroxysmal positional vertigo) Asthma Osteoarthritis History of abnormal cervical Pap smear History of dwarfism GERD (gastroesophageal reflux disease) Leiomyoma HSV-1 (herpes simplex virus 1) infection HTN (hypertension) Kidney calculi Surgical History History of lithotripsy History of surgery Family History Mother No problems noted. Father No problems noted. Paternal Grandmother Ovarian cancer Social History Housing: Apartment Alcohol intake: current Alcohol intake frequency: does not drink Patient Tobacco Use Status: Never used Tobacco e-Cigarette/Vaping Use: Never Used Second Hand Smoke Exposure: No service: No Current occupational status: disabled Cognitive needs: No Hearing needs: No Vision needs: Yes Female Reproductive History Menstrual Age of Menarche: 14 Review of Systems Const All systems reviewed & are unremarkable except as noted in HPI and below Reports no additional complaints Eyes Reports no additional complaints ENT Reports no additional complaints Card Reports no additional complaints Resp Reports no additional complaints GI Reports no additional complaints Reports as per HPI Musc Reports no additional complaints Skin/Breast Reports system reviewed and no additional complaints, except as documented Neuro Reports no additional complaints Psych Reports no additional complaints Endo Reports no additional complaints Mohit/Lymph Reports no additional complaints Aller/Immun Reports no additional complaints Telehealth Telehealth Telehealth Platform: D[employer]im[employer] Location of provider rendering services: practice address Location of patient: address on file Patient Identification confirmed using: Name, : Yes Telehealth method: voice only Patient verbally consented to treatment: Yes Patient verbally consented to billing insurance company: Yes Patient informed of any privacy concerns related to visit: Yes Minutes spent on Phone/Video with Pt.: 16 Results Reviewed Results Reviewed: Date of Service: 02/11/25 Procedure(s): CT abdomen pelvis wo IV con Accession Number(s): [id number] cc: Aggie Castro MD; Lisandro James PA-C~ Report Number: [id number]: Total DLP = 471.00 mGy-cm Reason for Exam: N20.0 - Calculus of kidney EXAMINATION: CT ABDOMEN PELVIS WITHOUT IV CONTRAST HISTORY: N20.0 - Calculus of kidney COMPARISON: Comparison is made with the prior examination dated 02/13/2024. TECHNIQUE: CT scan of the abdomen and pelvis was performed without contrast using standard departmental protocol. Coronal and sagittal reformatted images were generated and reviewed. Oral contrast material was not administered per department protocol. This CT exam was performed with one or more of the following dose reduction techniques: automated exposure control, adjustment of the mA and/or kV according to patient size, use of iterative reconstruction technique. DLP: 471 mGy-cm FINDINGS: LOWER CHEST: The visualized lung bases are clear. There is no pleural effusion. CARDIOVASCULATURE: The heart is normal in size. There is no pericardial effusion. LIVER: The liver is normal in size and contour. The liver has an unremarkable unenhanced appearance. GALLBLADDER / BILE DUCTS: The gallbladder is unremarkable. There is no intra or extrahepatic biliary ductal dilatation. SPLEEN: The spleen is normal in size and has an unremarkable unenhanced appearance. PANCREAS: The pancreas has an unremarkable unenhanced appearance. ADRENAL GLANDS: Unremarkable. KIDNEYS/RETROPERITONEUM: There is a 3 mm nonobstructing calculus at the upper pole of the left kidney. No right renal calculi are identified. There is no hydronephrosis or hydroureter. LYMPH NODES: No retroperitoneal lymphadenopathy is identified in the abdomen or pelvis. VASCULATURE: The abdominal aorta is normal in caliber. MESENTERY/PERITONEUM: No free fluid. No masses. There is no free intraperitoneal gas. STOMACH: The stomach is collapsed, limiting evaluation. SMALL BOWEL: The small bowel is normal in caliber. COLON: The colon is unremarkable. APPENDIX: Normal. URINARY BLADDER/PELVIC ORGANS: The urinary bladder is unremarkable. The uterus and ovaries have an unremarkable unenhanced appearance. BONES / SOFT TISSUES: No suspicious bony or soft tissue abnormalities. CT/CT abdomen pelvis wo IV con IMPRESSION: 3 mm nonobstructing left renal calculus. No evidence of ureteral obstruction. Electronically signed by: Vinod Hood MD 02/11/2025 01:56 PM EDT RP ------ Date of Service: 02/13/24 CT ABDOMEN AND PELVIS WITHOUT CONTRAST CLINICAL INFORMATION: Calculus of kidney. COMPARISON: 07/26/2020. TECHNIQUE: Multidetector volumetric imaging was performed from the superior aspect of the liver through the pubic symphysis. Sagittal and coronal reformatted images were obtained on the technologist's workstation. This CT examination was performed using dose optimization techniques as appropriate, variously including the following: *Automated exposure control *Adjustment of mA and/or kV according to patient size (this includes techniques or standardized protocols for targeted exams where dose is matched to indication/reason for exam; i.e. extremities or head) *Use of iterative reconstruction technique DLP: 432 mGy-cm FINDINGS: LUNG BASES: The visualized lung bases are clear. Normal heart size. LIVER, GALLBLADDER, AND BILIARY TREE: Unenhanced liver is normal in size, and attenuation. No focal abnormality. The gallbladder is unremarkable with no evidence of radiopaque gallstones, gallbladder wall thickening, or obvious pericholecystic inflammatory changes. PANCREAS: Unremarkable. SPLEEN: Unremarkable. ADRENAL GLANDS: Unremarkable. KIDNEYS AND URETERS: -3 mm nonobstructing calculus mid to superior pole left kidney, with a similar 3 mm inferior pole nonobstructing calculus. -Left kidney otherwise normal. -Right kidney is normal without calculi, mass, or hydronephrosis. -Ureters are nondilated. BLADDER: Unremarkable. GASTROINTESTINAL TRACT: -The stomach is decompressed. It is otherwise normal. -Small bowel is normal in caliber and course and appearance. -Normal appendix present. -Colon is normal in caliber and course without wall thickening or inflammation. No significant diverticular disease is apparent. -Rectum is normal. ABDOMINAL WALL: -Normal. No masses, hernias, or abnormal lymph nodes. LYMPH NODES: -No pathologic lymphadenopathy is present. -There are numerous small mesenteric nodes present throughout the small bowel and large bowel mesentery, nonspecific and presumably reactive/inflammatory in nature. VASCULAR: -Normal. PELVIC VISCERA: Unremarkable. OSSEOUS STRUCTURES: -Intramedullary caroline with transtrochanteric screw right proximal femur. -Minimal degenerative changes throughout the spine. A few scattered Schmorl's nodes present in the superior endplates of T10 and T11. IMPRESSION: 1. No acute findings in the abdomen or pelvis. 2. There are two nonobstructing 3 mm calculi in the left kidney. There are no right renal calculi. There is no hydronephrosis or hydroureter. 3. Additional ancillary findings as discussed in the body of the report. Date of Service: 07/13/23 EXAMINATION: US RETROPERITONEAL LIMITED (RENAL ONLY) CLINICAL INFORMATION: Calculus of kidney. Status post left ESWL May 2023. COMPARISON: X-ray abdomen 05/11/2023 and 03/24/2023. Renal ultrasound 03/24/2023 and 03/07/2023. CT abdomen and pelvis with contrast 08/03/2020. TECHNIQUE: Real-time imaging of the kidneys. FINDINGS: RIGHT KIDNEY: 9.7 x 3.8 x 5.4 cm (SAG x AP x TRV). The kidney is normal in size, contour, and echogenicity. Renal cortical thickness is normal. No calculi or focal parenchymal lesions. No hydronephrosis. LEFT KIDNEY: 9.2 x 4.2 x 4 cm (SAG x AP x TRV). The kidney is normal in size, contour, and echogenicity. Renal cortical thickness is normal. 6 mm nonobstructing upper pole calculus. No hydronephrosis. IMPRESSION: 6 mm nonobstructing left renal calculus. No right-sided renal calculi. No hydronephrosis of either kidney. Assessment & Plan Assessment & Plan (1) Kidney stone on left side: Code(s): N20.0 - Calculus of kidney Category: Medical Plan Plan 1. Nephrolithiasis - Prescribed Flomax to aid in stone passage if pain recurs, to be taken for 7 to 10 days in the evening. - Advised to maintain high fluid intake during treatment. - Recommended use of extra strength Tylenol or Motrin prn for pain management. - Follow-up scheduled in 10 months to reassess condition. Orders: Orders US renal BI 9 Months N20.0 - Calculus of kidney Patient Instructions: The patient had an opportunity to ask questions regarding treatment plan. The patient expressed understanding and agreement with the above treatment plan. The patient is aware they should contact our office by phone for worsening of their current condition or the appearance of new symptoms. Compliance is enc ouraged with any medications and followup testing that is ordered. It is a privilege to be allowed the opportunity to participate in the urologic care of your patient. If you have any questions or concerns regarding treatment for the above conditions please do not hesitate to contact me. The office telephone contact is [phone]. This note is constructed in part using voice recognition software. While every effort has been made to ensure accuracy sleeping car service attendant errors may have been included. Yours sincerely, Aggie Castro MD Scribe Plan - Not visible on output: Patient was informed and verbally consented to the use of an ambient scribe for clinic note documentation during this visit. Coding Level of Care Code Tele Est Pt Level 4 (87706) Diagnoses Kidney stone on left side N20.0
== END 2025-04-19 13:36 | disposition home or self-care (01) ==
PROVIDERS: PCP Physician Assistant; Visit Provider Urology
DX: N20.0 Calculus of kidney (principal)
CPT/HCPCS: 99214

== ENCOUNTER 2025-04-29 12:28 | Outpatient (REF) | payer OTHER, SELFPAY ==
--- NOTE | ~2025-04-29 | US_ITS ---
EXAMINATION(S): 1. MM DIAGNOSTIC DIGITAL BREAST TOMOSYNTHESIS, BILATERAL 2. TARGETED ULTRASOUND OF THE RIGHT BREAST CLINICAL INFORMATION: Right breast pain and lump at 09:00. Palpable right breast lump painful for one month. COMPARISON: November 11, 2022 TECHNIQUE: Digital breast tomosynthesis is performed in both the mediolateral oblique and craniocaudal views along with computer-aided detection (CAD). Synthesized 2D images are generated from the tomosynthesis. Skin BB marker was placed at the location of the palpable concern in the upper outer quadrant of the right breast, as indicated by the patient. FINDINGS: BREAST COMPOSITION: There are scattered areas of fibroglandular density. RIGHT BREAST: No significant masses, suspicious calcifications or other abnormalities are seen. In particular, no suspicious mammographic findings adjacent to the skin BB marker. Targeted ultrasound of the right breast was performed at the location of the palpable concern as indicated by the patient. According to the technologist, the survey centered at 10 o'clock position at 15 cm from the nipple did not reveal suspicious sonographic findings.. LEFT BREAST: No significant masses, suspicious calcifications or other abnormalities are seen. US/US Breast RT Limited Mamm Only IMPRESSION: RIGHT BREAST: Negative, no evidence of malignancy. Clinical follow-up is recommended, independent of imaging findings. Otherwise, normal interval follow-up mammogram is recommended in 12 months. LEFT BREAST: Negative, no mammographic evidence of malignancy. Normal interval follow-up is recommended in 12 months. ASSESSMENT: BI-RADS: Category 1: Negative RECOMMENDATION: 1. Patient should be managed based on the clinical impression. 2. Otherwise, routine annual screening mammography. Results were provided to the patient at time of visit by the technologist. This patient's information was entered into a reminder system with a target due date for their next mammogram. Electronically signed by: Portillo Estrada MD 04/29/2025 01:19 PM [facility]
== END 2025-04-29 12:29 | disposition home or self-care (01) ==
LOC: HO.MAMMO 12:28
PROVIDERS: PCP Physician Assistant; Visit Provider Advanced Practice Midwife
DX: N64.4 Mastodynia (principal); N63.11 Unspecified lump in the right breast, upper outer quadrant
CPT/HCPCS: 76642; 77062; 77066

== ENCOUNTER → 2025-04-29 13:00 | Outpatient (BNV) | payer OTHER, SELFPAY | PROVIDERS: PCP Physician Assistant; Visit Provider Radiology Body Imaging | DX: N63.15 Unspecified lump in the right breast, overlapping quadrants (principal) | CPT/HCPCS: 76642; 77066; G0279 ==

== ENCOUNTER 2025-05-08 11:31 | Outpatient (AMB) | payer OTHER, SELFPAY ==
[2025-05-08 11:36] VITALS: BP 134/80; BMI 46.5
--- NOTE | 2025-05-08 11:36 | A.OFFVIS_ITS ---
Vital Signs 05/08/25 11:36 Height 4 ft Weight 152 lb 6 oz BMI 46.5 BP 134/80 Blood Pressure Location Rt brachial Position Sitting Intake Visit Reasons: breast ultra sound follow up Allergies No Known Allergies Allergy (Verified 05/08/25 11:38) Is last menstrual period known: Yes Last menstrual period: 05/01/25 HPI Comments Details: Patient is here today for a follow up breast US, mammogram, history of a painful right breast lump, more so when resting on that side. Denies wearing an under wire garment. No other changes since last exam. Off OCPs for the last month. Currently not sexually active. [facility] Medical History Encounter for screening for malignant neoplasm of breast Breast pain Breast lump Migraine BPPV (benign paroxysmal positional vertigo) Asthma Osteoarthritis History of abnormal cervical Pap smear History of dwarfism GERD (gastroesophageal reflux disease) Leiomyoma HSV-1 (herpes simplex virus 1) infection HTN (hypertension) Kidney calculi Surgical History History of lithotripsy History of surgery Family History Mother No problems noted. Father No problems noted. Paternal Grandmother Ovarian cancer Social History Housing: Apartment Alcohol intake: current Alcohol intake frequency: does not drink Patient Tobacco Use Status: Never used Tobacco e-Cigarette/Vaping Use: Never Used Second Hand Smoke Exposure: No service: No Current occupational status: disabled Cognitive needs: No Hearing needs: No Vision needs: Yes Female Reproductive History Menstrual Age of Menarche: 14 Date of last menstrual period: 05/01/25 Review of Systems Const All systems reviewed & are unremarkable except as noted in HPI and below Reports no additional complaints Skin/Breast Reports system reviewed and no additional complaints, except as documented and Reports as per HPI Physical Exam Vital Signs: Last Vital Signs BP 134/80 05/08/25 11:36 BMI result Body Mass Index 46.5 Const General: cooperative, healthy appearing and no acute distress Chest Breast/axilla inspection: normal inspection of the breasts, normal inspection of the axillae and Other (Slight tenderness with the examination of the right breast at 9 o'clock pos) Breast/axilla palpation: normal palpation of the breasts Skin General skin exam: no rashes or lesions noted Results Reviewed Results Reviewed: [facility] [address] [place], [place] [address] Ultrasound Report Signed Patient: Bernadette Hernandez MR#: [id number] : 1985 Acct:[id number] Age/Sex: 40 / F ADM Date: 04/29/25 Loc: HO.MAMMO Attending Dr: Rossana Brice CNM Ordering Physician: Rossana Brice CNM Date of Service: 04/29/25 Procedure(s): US Breast RT Limited Mamm Only Accession Number(s): [id number] cc: Lisandro James PA-C; Rossana Brice CNM~ Reason for Exam: N63.0 - Unspecified lump in unspecified breast EXAMINATION(S): 1. MM DIAGNOSTIC DIGITAL BREAST TOMOSYNTHESIS, BILATERAL 2. TARGETED ULTRASOUND OF THE RIGHT BREAST CLINICAL INFORMATION: Right breast pain and lump at 09:00. Palpable right breast lump painful for one month. COMPARISON: November 11, 2022 TECHNIQUE: Digital breast tomosynthesis is performed in both the mediolateral oblique and craniocaudal views along with computer-aided detection (CAD). Synthesized 2D images are generated from the tomosynthesis. Skin BB marker was placed at the location of the palpable concern in the upper outer quadrant of the right breast, as indicated by the patient. FINDINGS: BREAST COMPOSITION: There are scattered areas of fibroglandular density. RIGHT BREAST: No significant masses, suspicious calcifications or other abnormalities are seen. In particular, no suspicious mammographic findings adjacent to the skin BB marker. Targeted ultrasound of the right breast was performed at the location of the palpable concern as indicated by the patient. According to the technologist, the survey centered at 10 o'clock position at 15 cm from the nipple did not reveal suspicious sonographic findings.. LEFT BREAST: No significant masses, suspicious calcifications or other abnormalities are seen. US/US Breast RT Limited Mamm Only IMPRESSION: RIGHT BREAST: Negative, no evidence of malignancy. Clinical follow-up is recommended, independent of imaging findings. Otherwise, normal interval follow-up mammogram is recommended in 12 months. LEFT BREAST: Negative, no mammographic evidence of malignancy. Normal interval follow-up is recommended in 12 months. ASSESSMENT: BI-RADS: Category 1: Negative RECOMMENDATION: 1. Patient should be managed based on the clinical impression. 2. Otherwise, routine annual screening mammography. Results were provided to the patient at time of visit by the technologist. This patient's information was entered into a reminder system with a target due date for their next mammogram. Electronically signed by: Portillo Estrada MD 04/29/2025 01:19 PM EST RP Dictated By: Portillo Estrada MD Signed By: <Electronically signed by Portillo Estrada MD in OV> 04/29/25 1319 DD/ 1258 TD/TT: 04/29/25 1314 Sock Examiner: Assessment & Plan Assessment & Plan (1) Breast pain: Code(s): N64.4 - Mastodynia Category: Medical Plan Discuss test results mammogram in ultrasound findings- BI-RADS 1. Continue to wear comfortable undergarments, [id number] self-help medication PRN. If symptoms increase or persistent to report back to the office for further evaluation. Continue with yearly mammogram self-breast. Restart control. The patient expressed understanding and agreement with the plan of care. All of her questions and concerns were addressed to the best of my ability. This note is constructed using voice recognition software. While every effort has been made to ensure accuracy, supply chain project manager errors may have been included. Coding Level of Care Code Est Pt Level 3 (68947) Diagnoses Breast pain N64.4
== END 2025-05-08 12:37 | disposition home or self-care (01) ==
LOC: HO.HWS 11:31
PROVIDERS: PCP Physician Assistant; Visit Provider Advanced Practice Midwife
DX: N64.4 Mastodynia (principal)
CPT/HCPCS: 99213

== ENCOUNTER → 2025-05-08 12:16 | Outpatient (AMB) | payer OTHER, SELFPAY ==
--- NOTE | 2025-05-08 12:16 | A.OFFVIS_ITS ---
Intake Visit Reasons: ultrasound follow up Arabic Translator Required: No Information Interpreted: non-clinical & clinical Allergies No Known Allergies Allergy (Verified 05/08/25 11:38) HPI Comments Details: Presenting for ultrasound follow-up done on 02/07/2025 which showed the following: Uterus measures 6.2 x 3.2 x 4.4 cm. Subserosal fibroid measuring up to 8 mm versus 9 mm previously Endometrium 2 mm thickness. Right ovary 3.1 x 2.3 x 2.8 cm. Left ovary 3 x 1.8 x 1.5 cm. Partially collapsed dominant right ovarian follicle versus right ovarian cyst measuring up to 27 mm. Nonhomogeneous hypoechoic to isoechoic region measuring up to 2 cm (versus 1.5 cm previously) in the posterior wall of the uterine cervix cannot be accurately characterized.Further characterization with physical exam +/-uterine cervix MRI recommended to rule out mass lesion. No free fluid. IMPRESSION: Nonhomogeneous hypoechoic to isoechoic region measuring up to 2 cm (versus 1.5 cm previously) in the posterior wall of the uterine cervix cannot be accurately characterized.Further characterization with physical exam +/-uterine cervix MRI recommended to rule out mass lesion. No free fluid. [facility] Medical History Encounter for screening for malignant neoplasm of breast Breast pain Breast lump Migraine BPPV (benign paroxysmal positional vertigo) Asthma Osteoarthritis History of abnormal cervical Pap smear History of dwarfism GERD (gastroesophageal reflux disease) Leiomyoma HSV-1 (herpes simplex virus 1) infection HTN (hypertension) Kidney calculi Surgical History History of lithotripsy History of surgery Family History Mother No problems noted. Father No problems noted. Paternal Grandmother Ovarian cancer Social History Housing: Apartment Alcohol intake: current Alcohol intake frequency: does not drink Patient Tobacco Use Status: Never used Tobacco e-Cigarette/Vaping Use: Never Used Second Hand Smoke Exposure: No service: No Current occupational status: disabled Cognitive needs: No Hearing needs: No Vision needs: Yes Female Reproductive History Menstrual Age of Menarche: 14 Review of Systems Const All systems reviewed & are unremarkable except as noted in HPI and below Reports as per HPI and Reports no additional complaints GI Reports no additional complaints Reports no additional complaints Assessment & Plan Assessment & Plan (1) Uterine myoma: Code(s): D25.9 - Leiomyoma of uterus, unspecified Category: Medical Plan: Discussed with the patient the finding on plan ultrasound recommended MRI. Instructions given the patient is schedule an MRI follow-up appointment within 2-3 weeks. All questions answered, the patient verbalized understanding Coding Level of Care Code Est Pt Level 3 (74601) Diagnoses Uterine myoma D25.9
== END ==
LOC: HO.HWS 12:16
PROVIDERS: PCP Physician Assistant; Visit Provider Obstetrics & Gynecology
DX: D25.9 Leiomyoma of uterus, unspecified (principal)
CPT/HCPCS: 99213

== ENCOUNTER → 2025-05-08 12:45 | Outpatient (REF) | payer OTHER, SELFPAY | LOC: HO.SL 12:45 | PROVIDERS: PCP Physician Assistant; Visit Provider Physician Assistant | DX: D25.9 Leiomyoma of uterus, unspecified (principal); N64.4 Mastodynia; G47.33 Obstructive sleep apnea (adult) (pediatric) | CPT/HCPCS: 95806; 99212 ==

== ENCOUNTER → 2025-05-08 13:30 | Outpatient (BNV) | payer OTHER, SELFPAY | PROVIDERS: PCP Physician Assistant; Visit Provider Psychiatry & Neurology Neurology | DX: G47.33 Obstructive sleep apnea (adult) (pediatric) (principal) | CPT/HCPCS: 95806 ==

== ENCOUNTER 2025-05-21 09:56 | Outpatient (REF) | payer OTHER, SELFPAY ==
--- NOTE | ~2025-05-21 | XR_ITS ---
EXAMINATION: XR CERVICAL SPINE CLINICAL INFORMATION: M54.2 - Cervicalgia COMPARISON: None available. TECHNIQUE: 7 views of the cervical spine, inclusive of flexion and extension and bilateral oblique views, were obtained. FINDINGS: Bone alignment is normal. No fracture or dislocation. Mild degenerative spondylosis at C5-6 and C6-7. Disc spaces are normal. Mild right-sided neuroforaminal narrowing at C3-4 from bony osteophyte. Neuroforamen are otherwise patent. No instability on flexion-extension views seen. Prevertebral soft tissues are normal. XR/XR cervical spine w flex/ext IMPRESSION: Mild degenerative spondylosis at C5-6 and C6-7 and mild right-sided neural foraminal narrowing at C3-4 from bony osteophyte. Electronically signed by: Corrie Lieberman MD 05/21/2025 10:25 AM [facility]
== END 2025-05-21 09:57 | disposition home or self-care (01) ==
LOC: HO.XRAY 09:56
PROVIDERS: PCP Physician Assistant; Visit Provider Nurse Practitioner Family
DX: M54.2 Cervicalgia (principal)
CPT/HCPCS: 72052

== ENCOUNTER → 2025-05-21 10:01 | Outpatient (BNV) | payer OTHER, SELFPAY | PROVIDERS: PCP Physician Assistant; Visit Provider Radiology Diagnostic Radiology | DX: M47.812 Spondylosis without myelopathy or radiculopathy, cervical region (principal); M99.61 Osseous and subluxation stenosis of intervertebral foramina of cervical region; M25.78 Osteophyte, vertebrae | CPT/HCPCS: 72052 ==

== ENCOUNTER → 2025-06-02 15:25 | Outpatient (BNV) | payer OTHER, SELFPAY | PROVIDERS: PCP Physician Assistant; Visit Provider Radiology Diagnostic Radiology | DX: D25.1 Intramural leiomyoma of uterus (principal); N83.01 Follicular cyst of right ovary | CPT/HCPCS: 72197 ==

== ENCOUNTER 2025-06-02 15:26 | Outpatient (REF) | payer OTHER, SELFPAY ==
--- NOTE | ~2025-06-02 | MR_ITS ---
EXAMINATION: MR PELVIS WITHOUT THEN WITH IV CONTRAST HISTORY: D25.9 - Leiomyoma of uterus, unspecified. TECHNIQUE: Axial T1, fat-suppressed T1, diffusion weighted, and fat suppressed T2, and sagittal and coronal T2-weighted MR images of the pelvis were obtained. Subsequently, sagittal and axial fat-suppressed T1-weighted images were obtained after the intravenous administration of 7 mL Gadavist. COMPARISON: Correlation is made with a pelvic ultrasound is 11/30/2023. FINDINGS: The uterus measures approximately 6.5 x 3.2 x 4.1 cm. There is a fibroid in the posterior lower uterine segment/cervix measuring 1.4 x 1.2 x 1.3 cm. No additional fibroids are identified. The junctional zone is not thickened. The cervical stroma is intact. The endometrium is unremarkable. The right ovary measures 2.7 x 2.7 x 2.3 cm and demonstrates a dominant 2.0 cm follicle. The left ovary measures 1.8 x 1.3 x 1.5 cm and is unremarkable. There is no ascites or pelvic lymphadenopathy. There is magnetic susceptibility artifact from intramedullary caroline in the right femur. MR/MR pelvis wo/w con IMPRESSION: 1.4 x 1.2 x 1.3 cm posterior lower uterine segment/cervical fibroid. Electronically signed by: Vinod Hood MD 06/03/2025 07:13 AM [facility]
== END 2025-06-02 15:27 | disposition home or self-care (01) ==
LOC: HO.MRI 15:26
PROVIDERS: PCP Physician Assistant; Visit Provider Obstetrics & Gynecology
DX: D25.9 Leiomyoma of uterus, unspecified (principal)
CPT/HCPCS: 72197; A9585

== ENCOUNTER 2025-06-05 12:20 | Outpatient (AMB) | payer OTHER, SELFPAY ==
--- NOTE | 2025-06-05 12:24 | A.OFFVIS_ITS ---
Vital Signs 06/05/25 12:26 Height 4 ft Weight 152 lb BMI 46.4 BP 126/82 Intake Visit Reasons: MRI results Clinical Rn Manager Required: No Information Interpreted: non-clinical & clinical Accompanied by: Self / Same As Patient Allergies No Known Allergies Allergy (Verified 06/05/25 12:27) HPI Comments Details: Presenting for follow-up which showed the following: IMPRESSION: 1.4 x 1.2 x 1.3 cm posterior lower uterine segment/cervical fibroid PFSH Medical History Encounter for screening for malignant neoplasm of breast Breast pain Breast lump Migraine BPPV (benign paroxysmal positional vertigo) Asthma Osteoarthritis History of abnormal cervical Pap smear History of dwarfism GERD (gastroesophageal reflux disease) Leiomyoma HSV-1 (herpes simplex virus 1) infection HTN (hypertension) Kidney calculi Surgical History History of lithotripsy History of surgery Family History Mother No problems noted. Father No problems noted. Paternal Grandmother Ovarian cancer Social History Housing: Apartment Alcohol intake: current Alcohol intake frequency: does not drink Patient Tobacco Use Status: Never used Tobacco e-Cigarette/Vaping Use: Never Used Second Hand Smoke Exposure: No service: No Current occupational status: disabled Cognitive needs: No Hearing needs: No Vision needs: Yes Female Reproductive History Menstrual Age of Menarche: 14 Review of Systems Const All systems reviewed & are unremarkable except as noted in HPI and below Reports as per HPI and Reports no additional complaints GI Reports no additional complaints Reports no additional complaints Physical Exam Vital Signs: Last Vital Signs BP 126/82 06/05/25 12:26 BMI result Body Mass Index 46.4 Assessment & Plan Assessment & Plan (1) Uterine myoma: Code(s): D25.9 - Leiomyoma of uterus, unspecified Category: Medical Plan: Discussed with the patient the findings on pelvic ultrasound & the risk of myosarcoma; in addition reviewed with the patient that malignancy and pre malignancy cannot be ruled out without hysterectomy for pathological evaluation ; furthermore, explained to the patient the limitation of pelvic ultrasound and endometrial biopsy in the setting. Discussed with the patient the options of treatment including expectant management versus hysterectomy; the pros and cons, risks benefits of each approach were discussed with the patient including the fact that in cases of myosarcoma, surgical treatment can lead to early diagnosis and positively affects the prognosis; after further discussion, the patient decided to proceed with expectant management. Will repeat pelvic ultrasound periodically. Instructions given to patient to call in case any of the following occurs: pressure symptoms, abnormal uterine bleeding, pelvic pain; and to schedule a six-months pelvic ultrasound (order placed) and a follow-up appointment . All questions answered, the patient verbalized understanding and agreed with the plan . Orders: Orders US pelvic and transvaginal 6 Months D25.9 - Leiomyoma of uterus, unspecified Coding Level of Care Code Est Pt Level 3 (54940) Diagnoses Uterine myoma D25.9
[2025-06-05 12:26] VITALS: BP 126/82; BMI 46.4
== END 2025-06-05 12:48 | disposition home or self-care (01) ==
LOC: HO.HWS 12:20
PROVIDERS: PCP Physician Assistant; Visit Provider Obstetrics & Gynecology
DX: D25.9 Leiomyoma of uterus, unspecified (principal)
CPT/HCPCS: 99213

== ENCOUNTER → 2025-06-05 12:20 | Outpatient (BNVA) | payer OTHER, SELFPAY | PROVIDERS: PCP Physician Assistant; Visit Provider Obstetrics & Gynecology | DX: D25.9 Leiomyoma of uterus, unspecified (principal) | CPT/HCPCS: 99212 ==